=== PATIENT | male | born 1980 | race Caucasian/White ===

== ENCOUNTER 2016-07-09 02:33 | Emergency (ER) ==
[2016-07-09 02:48] VITALS: BP 120/83; TEMP 96.8
[2016-07-09] MEDS ORDERED: ZOFRAN 4 MG/2 ML IVP STA (02:56)
[2016-07-09] MEDS ORDERED: SODIUM CHLORIDE 1,000 ML IV STA (02:56)
[2016-07-09] MEDS ORDERED: DEMEROL 25 MG/ML SYRINGE IVP STA (02:56)
--- NOTE | 2016-07-09 02:59 | ED.PDOC ---
General ED Provider: Dr. YOSSI HOROWITZ Chief Complaint: Abdominal Pain Stated Complaint: been having diarrhea and abdominal cramps, on and off ever since he had GB surgery, 'worse today. Time Seen by Physician: 02:57 Mode of Arrival: Walk-In Information Source: Patient Primary Care Provider: ROSANNA JONES Nursing and Triage Documentation Reviewed and Agree: Yes GI Complaint Exam - Abdominal Pain Complaint/Exam Onset: Gradual Symptoms Are: Still present Timing: Constant Initial Severity: Moderate Current Severity: Moderate Location of Pain: Discrete Character: Reports: Aching, Throbbing Aggravating: Reports: Movement, Food Alleviating: Reports: None Associated Signs and Symptoms: Reports: Nausea, Vomiting, Diarrhea. Denies: Diaphoresis, Fever, Cough, Chest pain, Dizziness, Back pain, Constipation, Blood in stool, Dysuria, Urinary frequency, Decreased urine output, Decreased appetite, Discharge, Decreased activity Related History: Reports: Similar episode AAA Risk Factors: Reports: None Cardiac Risk Factors: Reports: None Testicular Torsion Risk Factors: Reports: None Surgical Obstruction Risk Factors: Reports: None Related Surgical History: Reports: Cholecystectomy Abdominal Findings: Absent: Pulsatile mass, Abdominal distention, Unequal femoral pulses Differential Diagnoses: Gastroenteritis, Pancreatitis Review of Systems - Review Of Systems Constitutional: Reports: Weakness Eyes: Reports: No symptoms Ears, Nose, Mouth, Throat: Reports: No symptoms Respiratory: Reports: No symptoms Cardiac: Reports: No symptoms GI: Reports: Abdominal pain, Diarrhea, Nausea, Vomiting : Reports: No symptoms Musculoskeletal: Reports: No symptoms Skin: Reports: No symptoms Neurological: Reports: No symptoms Endocrine: Reports: No symptoms Hematologic/Lymphatic: Reports: No symptoms All Other Systems: Reviewed and Negative Past Medical History - Past Medical History Previously Healthy: Yes Endocrine: Reports: DM 1 Cardiovascular: Reports: None Respiratory: Reports: None Hematological: Reports: None Gastrointestinal: Reports: None, Other (IRRITABLE BOWEL,) Genitourinary: Reports: None Neuro/Psych: Reports: None Musculoskeletal: Reports: Other Cancer: Reports: None Other Pertinent Past Medical History: IRRITABLE BOWEL, - Surgical History General Surgical History: Reports: Cholecystectomy, Tonsillectomy - Family History Family History: Reports: Unknown - Social History Smoking Status: Current every day smoker Hx Substance Use: No Alcohol Screening: Occasionally - Immunizations Tetanus Shot up to Date: Yes Physical Exam - Physical Exam Appearance: Ill-appearing, Thin Eyes: JERILYN, EOMI, Conjunctiva clear ENT: Ears normal, Nose normal, Oropharynx normal Respiratory: Airway patent, Breath sounds clear, Breath sounds equal, Respirations nonlabored Cardiovascular: RRR, Pulses normal, No rub, No murmur GI/: Soft, Tender, Bowel sounds hypoactive Musculoskeletal: Normal strength, ROM intact, No edema, No calf tenderness Skin: Warm, Dry, Normal color Neurological: Sensation intact, Motor intact, Reflexes intact, Cranial nerves intact, Alert, Oriented Psychiatric: Affect appropriate, Mood appropriate Interpretation - Radiology Interpretation Radiology Interpretation By: Radiologist Radiology Results: Negative Exam Interpreted: CT Scan Critical Care Note - Critical Care Note Total Time (mins): 0 Course - Course Hematology/Chemistry: 07/09/16 03:00 07/09/16 03:00 Orders, Labs, Meds: Lab Review 07/09/16 03:00 WBC 12.34 H RBC 4.28 L Hgb 12.9 L Hct 38.6 L MCV 90.2 MCH 30.1 MCHC 33.4 RDW Coeff of Chayo 12.8 Plt Count 236 Immature Gran % (Auto) 0.4 Neut % (Auto) 70.1 Lymph % (Auto) 18.1 Reeves % (Auto) 8.3 Eos % (Auto) 2.4 Baso % (Auto) 0.7 Immature Gran # (Auto) 0.1 Neut # 8.6 H Lymph # 2.2 Reeves # 1.0 Eos # 0.3 Baso # 0.1 Sodium 133 L Potassium 5.1 Chloride 101 Carbon Dioxide 24 Anion Gap 13.1 BUN 22 H Creatinine 1.15 H Estimated GFR (MDRD) 72.00 BUN/Creatinine Ratio 19.13 Glucose 483 H Calcium 9.4 Total Bilirubin 0.46 AST 67 H ALT 169 H Alkaline Phosphatase 164 H Total Protein 6.6 Albumin 3.7 Globulin 2.9 Albumin/Globulin Ratio 1.28 Amylase 60 Lipase 34 Orders Category Date Time Status ED IV/MEDIPORT/POWERPORT .ONCE EMERGENCY 07/09/16 02:56 Active AMYLASE Stat LAB 07/09/16 03:00 Completed CBC W/ AUTO DIFF Stat LAB 07/09/16 03:00 Completed COMPREHENSIVE METABOLIC PANEL Stat LAB 07/09/16 03:00 Completed LIPASE Stat LAB 07/09/16 03:00 Completed 0.9 % Sodium Chloride [Saline Flush] MEDS 07/09/16 02:56 Ordered 1 syr IVF PRN PRN Meperidine HCl/Pf [Demerol 25 mg/ml Syringe] MEDS 07/09/16 02:56 Discontinued 25 mg IVP ONCE STA Ondansetron HCl/Pf [Zofran 4 mg/2 ml] MEDS 07/09/16 02:56 Discontinued 4 mg IVP ONCE STA Sodium Chloride 0.9% [Sodium Chloride] 1,000 ml MEDS 07/09/16 02:56 Active IV 125 mls/hr CT ABDOMEN/PELVIS WO CONTRAST Stat RADS 07/09/16 02:54 Completed Medications Generic Name Dose Route Start Last Admin Trade Name Freq PRN Reason Stop Dose Admin Sodium Chloride 1,000 mls @ 125 mls/hr 07/09/16 02:56 07/09/16 03:29 Sodium Chloride IV 07/09/16 10:55 125 mls/hr .Q8H STA Administration Sodium Chloride 1 syr 07/09/16 02:56 Saline Flush IVF PRN PRN To flush IV Discontinued Medications Generic Name Dose Route Start Last Admin Trade Name Freq PRN Reason Stop Dose Admin Meperidine HCl 25 mg 07/09/16 02:56 07/09/16 03:29 Demerol 25 Mg/Ml Syringe IVP 07/09/16 02:57 25 mg ONCE STA Administration Ondansetron HCl 4 mg 07/09/16 02:56 07/09/16 03:29 Zofran 4 Mg/2 Ml IVP 07/09/16 02:57 4 mg ONCE STA Administration Vital Signs: Temp Pulse Resp BP Pulse Ox 07/09/16 02:41 96.8 F L 94 H 18 120/83 95 Departure - Departure Time of Disposition: 04:56 Disposition: HOME SELF-CARE Discharge Problem: Abdominal pain Instructions: Gastroenteritis (ED) Condition: Stable Pt referred to PMD for follow-up: No Additional Instructions: INCREASE HYDRATION SOFT DIET needs f/u with pmd Prescriptions: Ondansetron HCl [Zofran] 4 mg PO TID #14 tablet Allergies/Adverse Reactions: Allergies ciprofloxacin [From Cipro] Adverse Reaction (Verified 07/09/16 02:45) Abdominal Pain ciprofloxacin HCl [From Cipro] Adverse Reaction (Verified 07/09/16 02:45) Abdominal Pain Home Medications: Ambulatory Orders Insulin Glargine,Hum.rec.anlog [Lantus] 20 unit SQ BID 03/06/14 Insulin Lispro [Humalog] 1 unit SQ DIRECTED PRN 07/09/16 Ondansetron HCl [Zofran] 4 mg PO TID #14 tablet 07/09/16 Disposition Discussed With: Patient, Family
[2016-07-09 03:01] LABS: BASOPHILS # (AUTO) 0.1 K/uL (0-0.2); BASOPHILS % (AUTO) 0.7 % (0.0-3.0); EOSINOPHILS # (AUTO) 0.3 K/ul (0.0-0.7); EOSINOPHILS % (AUTO) 2.4 % (0.0-7.0); HEMATOCRIT 38.6 % (42.0-52.0); HEMOGLOBIN 12.9 g/dl (14.0-18.0); IMMATURE GRANULOCYTE % (AUTO) 0.4 % (0.0-5.0); LYMPHOCYTES # (AUTO) 2.2 K/uL (0.60-3.4); LYMPHOCYTES % (AUTO) 18.1 (10.0-50.0); MEAN CORPUSCULAR HEMOGLOBIN 30.1 pg (27.0-31.0); MEAN CORPUSCULAR HGB CONC 33.4 (31.8-35.4); MEAN CORPUSCULAR VOLUME 90.2 fl (80.0-94.0); MONOCYTES % (AUTO) 8.3 (0-10); NEUTROPHILS # (AUTO) 8.6 K/ul (2.0-6.9); NEUTROPHILS % (AUTO) 70.1; PLATELET COUNT 236 10^3/uL (140-440); RED BLOOD COUNT 4.28 10^6/ul (4.70-6.10); WHITE BLOOD COUNT 12.34 K/ul (4.2-10.2)
[2016-07-09 03:22] LABS: ALBUMIN 3.7 g/dL (3.4-5.0); ALBUMIN/GLOBULIN RATIO 1.28; ANION GAP 13.1; BILIRUBIN,TOTAL 0.46 mg/dL (0.00-1.20); BUN/CREATININE RATIO 19.13; CALCIUM 9.4 mg/dL (8.2-10.2); CREATININE 1.15 mg/dL (0.60-1.10); POTASSIUM 5.1 mmol/L (3.5-5.1); TOTAL PROTEIN 6.6 g/dL (6.4-8.2)
--- NOTE | 2016-07-09 03:26 | CT ---
Exam: CT of the abdomen and pelvis without contrast History: Abdominal pain Technique: [address] of the abdomen and pelvis without intravascular contrast FINDINGS: The lung bases are clear. No significant liver abnormality. The adrenals, pancreas and sp trice are unremarkable. The stomach and hiatus are unremarkable. Prior cholecystectomy. The appendix is normal. Atherosclerotic calcification of the aorta without aneurysm. There is a 1.3 cm cyst of the left kidney. The kidneys and collecting system are unremarkable otherwise. Bowel loops demonst rate normal caliber. No inflamatory change seen in the mesentery or retroperitoneum. Pelvic genitourinary structures appear normal. Pelvic bowel loops are unremarkable. No inflammatory change in the pelvic fat. No acute abnormality of the abdominal or pelvic skeleton. Pars interartic ularis defects of L5. Impression: 1. No inflammatory process, bowel or urinary obstruction is seen. No acute findings of the abdomen or pelvis.
== END 2016-07-09 05:05 | disposition home or self-care (01) ==
LOC: ED 02:33
DX: K52.9 Noninfective gastroenteritis and colitis, unspecified (principal); Z98.890 Other specified postprocedural states; Z90.49 Acquired absence of other specified parts of digestive tract; F17.210 Nicotine dependence, cigarettes, uncomplicated; E10.9 Type 1 diabetes mellitus without complications
CPT/HCPCS: 36415; 80053; 82150; 83690; 85025; 96375; 99283

== ENCOUNTER 2016-07-28 16:38 | Outpatient (CLI) ==
--- NOTE | 2016-07-28 17:04 | DI ---
EXAM: Three views of the right hand. History: Right hand pain and trauma. Findings: No acute fracture or dislocation. No abnormal calcifications or radiopaque foreign adrianne s. Joint spaces are preserved. Impression: No acute osseous abnormality.
== END 2016-07-28 16:39 | disposition home or self-care (01) ==
LOC: RAD 16:38
PROVIDERS: ATTEND Physician Assistant Medical
DX: M79.641 Pain in right hand (principal)

== ENCOUNTER 2016-09-01 10:49 | Outpatient (CLI) ==
[2016-09-01 11:54] LABS: ALBUMIN 3.5 g/dL (3.4-5.0); ALBUMIN/GLOBULIN RATIO 1.25; BILIRUBIN,TOTAL 0.83 mg/dL (0.00-1.20); CALCIUM 9.1 mg/dL (8.2-10.2); CHOL/HDL RATIO 3.2 (4.5-6.4); CREATININE 0.8 mg/dL (0.60-1.10); TOTAL PROTEIN 6.3 g/dL (6.4-8.2)
[2016-09-02 08:15] LABS: URINE CREATININE 174.4 mg/dL (Not Estab.)
[2016-09-03 07:41] LABS: URINE MALB/CR RATIO 30.4 mg/g creat (0.0-30.0)
== END 2016-09-01 10:50 | disposition home or self-care (01) ==
LOC: LAB 10:49
PROVIDERS: ATTEND Internal Medicine Endocrinology, Diabetes & Metabolism
DX: E10.9 Type 1 diabetes mellitus without complications (principal)
CPT/HCPCS: 36415; 80053; 80061; 82043; 83036; 84439; 84443

== ENCOUNTER 2016-11-18 21:21 | Emergency (ER) ==
[2016-11-18 21:36] VITALS: BP 123/88; TEMP 98.6; BMI 20.6
--- NOTE | 2016-11-18 22:02 | ED.PDOC ---
General ED Provider: Dr. DEL GAINES Chief Complaint: Bite Stated Complaint: Pateint states he was bitten by a brown spider on his left forearm 3 days ago. Since the it has been painful and swollen with some drainge. States that the pain is severe. Time Seen by Physician: 21:59 Mode of Arrival: Walk-In Information Source: Patient Exam Limitations: No limitations Primary Care Provider: ROSANNA JONES Nursing and Triage Documentation Reviewed and Agree: Yes Skin Complaint Exam - Skin/Soft Tissue Complaint/Exam Onset/Duration: 2 day Symptoms Are: Still present Timing: Constant Initial Severity: Moderate Current Severity: Moderate Location: Left mid forearm Character: Reports: Redness, Painful Aggravating: Reports: Touch Alleviating: Reports: None Associated Signs and Symptoms: Reports: Tenderness. Denies: Fever, Chills, Itching, Drainage, Bruising, Red streaks, Joint swelling Related History: Reports: Insect bite/sting Recent Exposure to Others w/Similar Symptoms: No Skin Findings: Present: Skin lesion (2 cm eschar noted on the mid left for arm with tenderness to palpation. ) Joint Tenderness Present: No Differential Diagnoses: Abscess, Cellulitis, Infection, MRSA Review of Systems - Review Of Systems Constitutional: Reports: No symptoms Eyes: Reports: No symptoms Ears, Nose, Mouth, Throat: Reports: No symptoms Respiratory: Reports: No symptoms Cardiac: Reports: No symptoms GI: Reports: No symptoms : Reports: No symptoms Musculoskeletal: Reports: Joint pain (Left finger injury ) Skin: Reports: Lesions, Rash Neurological: Reports: No symptoms Endocrine: Reports: No symptoms Hematologic/Lymphatic: Reports: No symptoms All Other Systems: Reviewed and Negative Past Medical History - Past Medical History Previously Healthy: Yes Endocrine: Reports: DM 1 Cardiovascular: Reports: None Respiratory: Reports: None Hematological: Reports: None Gastrointestinal: Reports: None, Other (IRRITABLE BOWEL,) Genitourinary: Reports: None Neuro/Psych: Reports: None Musculoskeletal: Reports: Other Cancer: Reports: None Other Pertinent Past Medical History: IRRITABLE BOWEL, - Surgical History General Surgical History: Reports: Cholecystectomy, Tonsillectomy - Family History Family History: Reports: Unknown - Social History Smoking Status: Current every day smoker, Heavy tobacco smoker Hx Substance Use: No Alcohol Screening: Occasionally - Immunizations Tetanus Shot up to Date: Yes Physical Exam - Physical Exam Appearance: Ill-appearing Ill-appearing: Mild Pain Distress: Moderate Neck: Supple Respiratory: Airway patent, Breath sounds clear, Breath sounds equal, Respirations nonlabored Cardiovascular: Pulses normal, No rub, No murmur, Tachycardia Musculoskeletal: Limited ROM (Left distal phalanx deformity ) Skin: Warm, Dry Neurological: Sensation intact Psychiatric: Anxious Interpretation - Radiology Interpretation Radiology Interpretation By: Radiologist Radiology Results: Positive Exam Interpreted: Other (Mallet fracture fifth digit ) Critical Care Note - Critical Care Note Total Time (mins): 0 Course - Course Orders, Labs, Meds: Orders Category Date Time Status Ketorolac Tromethamine [Toradol] MEDS 11/18/16 22:01 Discontinued 60 mg IM ONCE STA Sulfamethoxazole/Trimethoprim [Bactrim Ds 800/160 mg] MEDS 11/18/16 22:00 Discontinued 1 tab PO ONCE STA FINGER(S), LEFT MIN 2V Stat RADS 11/18/16 22:00 Completed Medications Discontinued Medications Generic Name Dose Route Start Last Admin Trade Name Freq PRN Reason Stop Dose Admin Ketorolac Tromethamine 60 mg 11/18/16 22:01 11/18/16 22:12 Toradol IM 11/18/16 22:02 60 mg ONCE STA Administration Trimethoprim/Sulfamethoxazole 1 tab 11/18/16 22:00 11/18/16 22:14 Bactrim Ds 800/160 Mg PO 11/18/16 22:01 1 tab ONCE STA Administration Vital Signs: Temp Pulse Resp BP Pulse Ox 11/18/16 21:22 98.6 F 110 H 18 123/88 97 Departure - Departure Time of Disposition: 22:47 Disposition: HOME SELF-CARE Discharge Problem: Spider bite wound, Finger fracture, left Instructions: Brown Recluse Spider Bite (ED), Jammed Finger (ED) Condition: Fair Pt referred to PMD for follow-up: Yes Additional Instructions: Follow up with your clinic in 2-3 days Return if worse or cannot keep medications down. Take medications as prescribed. Prescriptions: Hydrocodone/Acetaminophen [[place] 5-325 Tablet] 1 tab PO Q6HR PRN #12 tablet PRN Reason: PAIN Ibuprofen [Motrin] 600 mg PO Q6H PRN #30 tablet PRN Reason: Analgesia Sulfamethoxazole/Trimethoprim [Bactrim Ds Tablet] 1 each PO BID #20 tablet Allergies/Adverse Reactions: Allergies ciprofloxacin [From Cipro] Adverse Reaction (Verified 11/18/16 21:36) Abdominal Pain ciprofloxacin HCl [From Cipro] Adverse Reaction (Verified 11/18/16 21:36) Abdominal Pain BUMBLE BEES Adverse Reaction (Uncoded 11/18/16 21:37) Anaphylaxis Home Medications: Ambulatory Orders Insulin Glargine,Hum.rec.anlog [Lantus] 20 unit SQ BEDTIME 03/06/14 Insulin Lispro [Humalog] 2 unit SQ TID 07/09/16 Epinephrine [Epipen 2-Trev] 0.3 mg IM DIRECTED PRN 11/18/16 Hydrocodone/Acetaminophen [[place] 5-325 Tablet] 1 tab PO Q6HR PRN #12 tablet 11/27 Ibuprofen [Motrin] 600 mg PO Q6H PRN #30 tablet 11/18/16 Insulin Glargine,Hum.rec.anlog [Lantus] 28 unit SUBCUT DAILY 11/18/16 Sulfamethoxazole/Trimethoprim [Bactrim Ds Tablet] 1 each PO BID #20 tablet 11/18 Disposition Discussed With: Patient, Family
[2016-11-18] MEDS: TORADOL IM STA (22:12)
[2016-11-18] MEDS: BACTRIM DS 800/160 MG PO STA (22:14)
--- NOTE | 2016-11-18 22:44 | DI ---
EXAM: Left fifth finger HISTORY: Injury COMPARISON: None. FINDINGS: There is a Mallet fracture involving the base of the distal phalanx of the fifth digit. There is surrounding soft tissue swelling. IMPRESSION: Mallet fracture fifth digit
== END 2016-11-18 22:58 | disposition home or self-care (01) ==
LOC: ED 21:21
DX: S50.862A Insect bite (nonvenomous) of left forearm, initial encounter (principal); W57.XXXA Bitten or stung by nonvenomous insect and other nonvenomous arthropods, initial encounter; S62.637A Displaced fracture of distal phalanx of left little finger, initial encounter for closed fracture; F17.210 Nicotine dependence, cigarettes, uncomplicated
CPT/HCPCS: 96372; 99282

== ENCOUNTER 2016-11-23 22:05 | Emergency (ER) ==
[2016-11-23 22:05] VITALS: BMI 20.6
[2016-11-23] MEDS ORDERED: PROTONIX IV IVP STA (22:10)
[2016-11-23] MEDS ORDERED: ZOFRAN 4 MG/2 ML IVP STA (22:10)
[2016-11-23] MEDS ORDERED: SODIUM CHLORIDE 1,000 ML IV STA (22:10)
[2016-11-23] MEDS ORDERED: DILAUDID 1 MG/ML SYRINGE IVP STA ×2 (22:10→23:52)
[2016-11-23 22:19] LABS: BASOPHILS # (AUTO) 0.1 K/uL (0-0.2); BASOPHILS % (AUTO) 0.7 % (0.0-3.0); EOSINOPHILS # (AUTO) 0.2 K/ul (0.0-0.7); EOSINOPHILS % (AUTO) 1.5 % (0.0-7.0); HEMATOCRIT 37.6 % (42.0-52.0); IMMATURE GRANULOCYTE % (AUTO) 0.3 % (0.0-5.0); LYMPHOCYTES # (AUTO) 2.6 K/uL (0.60-3.4); LYMPHOCYTES % (AUTO) 23.7 (10.0-50.0); MEAN CORPUSCULAR HGB CONC 34.6 (31.8-35.4); MEAN CORPUSCULAR VOLUME 86.6 fl (80.0-94.0); NEUTROPHILS # (AUTO) 7.2 K/ul (2.0-6.9); NEUTROPHILS % (AUTO) 64.8; PLATELET COUNT 262 10^3/uL (140-440); RED BLOOD COUNT 4.34 10^6/ul (4.70-6.10); WHITE BLOOD COUNT 11.11 K/ul (4.2-10.2)
[2016-11-23 22:23] VITALS: BP 132/89; TEMP 99.2
[2016-11-23 22:40] LABS: BILIRUBIN,URINE Negative (NEGATIVE); KETONES,URINE 1+ (NEGATIVE); LEUKOCYTE ESTERASE ,URINE Negative (NEGATIVE); NITRITE,URINE Negative (NEGATIVE); PROTEIN,URINE Negative (NEGATIVE); URINE, BLOOD Trace-intact (NEGATIVE)
[2016-11-23 22:41] LABS: ADD URINE MICROSCOPIC YES
[2016-11-23 22:45] LABS: ALANINE AMINOTRANSFERASE 82 U/L (12-78); ALBUMIN 3.5 g/dL (3.4-5.0); ALKALINE PHOSPHATASE 223 U/L (50-136); AMYLASE 36 U/L (25-115); ANION GAP 16.6; ASPARTATE AMINO TRANSFERASE 115 U/L (15-37); BILIRUBIN,TOTAL 0.49 mg/dL (0.00-1.20); BLOOD UREA NITROGEN 20 mg/dL (7-18); BUN/CREATININE RATIO 13.88; CALCIUM 9.3 mg/dL (8.2-10.2); CARBON DIOXIDE 27 mmol/L (21-32); CHLORIDE 95 mmol/L (98-107); CREATINE KINASE 76 U/L; CREATININE 1.44 mg/dL (0.60-1.10); LIPASE 21 U/L (8-78); POTASSIUM 4.6 mmol/L (3.5-5.1); SODIUM 134 mmol/L (136-145)
[2016-11-23 22:46] LABS: SPERM,URINE TRACE (NOT PRESENT)
[2016-11-23 22:47] LABS: GLUCOSE 556 mg/dL (70-100)
[2016-11-23 22:54] LABS: ERYTHROCYTE SEDIMENTATION RATE 30 mm/hr (0-15); ESR INTERNAL QC INTERNAL QC VALID
--- NOTE | 2016-11-23 23:36 | CT ---
EXAM: CT angiogram chest with intravenous contrast 11/23/2016. Multi planar reformatted images obt ained. Three-dimensional reconstructed images provided HISTORY: Epigastric and chest/rib pain COMPARISON: None. FINDINGS: The heart size appears within normal limits. There is no pericardial effusion. The aort a shows no acute process. There are no pulmonary arterial filling defects to suggest pulmonary embolus. No acute osseous abnormality. There is no pulmonary consolidation, effusion or pneumothorax. Minimal dependent atelectasis. IMPRESSION: 1. Minimal dependent atelectasis. No acute superimposed cardiopulmonary process.
--- NOTE | 2016-11-23 23:37 | CT ---
EXAM: CT of the abdomen and pelvis with IV contrast. HISTORY: Upper abdominal pain. PROCEDURE: After the intravenous injection of contrast contiguous axial CT images of the abdomen an d pelvis were obtained with coronal and sagittal reformats. FINDINGS: There is a delay in image acquisition in relation to the IV contrast bolus which limits th e exam. The liver is normal in appearance. The gallbladder is surgically absent. The pancreas, spl een, adrenal glands and right kidney are normal in appearance. There is a cyst in the left kidney. The abdominal aorta is within normal limits in diameter. The appendix is incompletely visualized. T he visualized portion of the appendix is normal in appearance. No free fluid or free air in the abdo men or pelvis. The bladder is adequately filled with no abnormality identified. The bones and soft t issues are unremarkable. Impression: No acute findings in the abdomen or pelvis. Left renal cyst. Cholecystectomy.
[2016-11-23] MEDS ORDERED: HUMULIN R IVP STA (23:47)
--- NOTE | 2016-11-24 01:45 | ED.PDOC ---
General ED Provider: Dr. OZZIE ROLDAN-ER Chief Complaint: Abdominal Pain Stated Complaint: im hurting where my gb was Time Seen by Physician: 01:43 Mode of Arrival: Walk-In Information Source: Patient Exam Limitations: No limitations Primary Care Provider: ROSANNA JONES Nursing and Triage Documentation Reviewed and Agree: Yes GI Complaint Exam - Abdominal Pain Complaint/Exam Onset: Gradual Duration: several days Symptoms Are: Still present Timing: Constant Initial Severity: Mild Current Severity: Moderate Location of Pain: RUQ Character: Reports: Dull, Aching, Burning, Cramping Aggravating: Reports: Position Alleviating: Reports: None Associated Signs and Symptoms: Denies: Diaphoresis, Fever, Cough, Chest pain, Dizziness, Back pain, Constipation, Blood in stool, Dysuria, Urinary frequency, Decreased urine output, Decreased appetite, Discharge, Nausea, Vomiting, Diarrhea, Decreased activity Related Surgical History: Reports: Cholecystectomy Abdominal Findings: Present: None Differential Diagnoses: Constipation, Pancreatitis Quality Indicator For Non-Traumatic Chest Pain/Syncope: EKG Performed Review of Systems - Review Of Systems Constitutional: Reports: No symptoms Eyes: Reports: No symptoms Ears, Nose, Mouth, Throat: Reports: No symptoms Respiratory: Reports: No symptoms Cardiac: Reports: No symptoms, Other GI: Reports: No symptoms : Reports: No symptoms Musculoskeletal: Reports: No symptoms Skin: Reports: No symptoms Neurological: Reports: No symptoms Endocrine: Reports: No symptoms Hematologic/Lymphatic: Reports: No symptoms All Other Systems: Reviewed and Negative Past Medical History - Past Medical History Previously Healthy: Yes Endocrine: Reports: DM 1 Cardiovascular: Reports: None Respiratory: Reports: None Hematological: Reports: None Gastrointestinal: Reports: None, Other (IRRITABLE BOWEL,) Genitourinary: Reports: None Neuro/Psych: Reports: None Musculoskeletal: Reports: Other Cancer: Reports: None Other Pertinent Past Medical History: IRRITABLE BOWEL, - Surgical History General Surgical History: Reports: Cholecystectomy, Tonsillectomy - Family History Family History: Reports: Unknown - Social History Smoking Status: Current every day smoker, Heavy tobacco smoker Hx Substance Use: No Alcohol Screening: Occasionally Lives: With family - Immunizations Tetanus Shot up to Date: Yes Physical Exam - Physical Exam Appearance: Well-appearing, No pain distress, Well-nourished Pain Distress: Moderate Eyes: JERILYN, EOMI, Conjunctiva clear ENT: Ears normal, Nose normal, Oropharynx normal Neck: Supple Respiratory: Airway patent, Breath sounds clear, Breath sounds equal, Respirations nonlabored Cardiovascular: RRR, Pulses normal, No rub, No murmur GI/: Soft Musculoskeletal: Normal strength, ROM intact, No edema, No calf tenderness Skin: Warm, Dry, Normal color Neurological: Sensation intact, Motor intact, Reflexes intact, Cranial nerves intact, Alert, Oriented Psychiatric: Affect appropriate, Mood appropriate Interpretation - Radiology Interpretation Radiology Interpretation By: Radiologist Radiology Results: Negative Exam Interpreted: CT Scan - EKG Interpretation Time of EKG #1: 01:47 Rate: Normal Rhythm: Sinus Ectopy: None [place]: NL ST Segment: Normal Re-Evaluation - Re-Evaluation Time of Re-Evaluation: :47 Status: Improved (pain free) Vital Signs Stable: Yes Pain Level: 0 Appearance: NAD Lungs: Clear Skin: Warm and Dry Neuro: Alert and Oriented X3 CV: RRR Critical Care Note - Critical Care Note Total Time (mins): 0 Course - Course Hematology/Chemistry: 11/23/16 22:15 11/23/16 22:15 Orders, Labs, Meds: Lab Review 11/23/16 11/23/16 22:15 22:30 WBC 11.11 H RBC 4.34 L Hgb 13.0 L Hct 37.6 L MCV 86.6 MCH 30.0 MCHC 34.6 RDW Coeff of Chayo 12.2 Plt Count 262 Immature Gran % (Auto) 0.3 Neut % (Auto) 64.8 Lymph % (Auto) 23.7 Drew % (Auto) 9.0 Eos % (Auto) 1.5 Baso % (Auto) 0.7 Immature Gran # (Auto) 0.0 Neut # 7.2 H Lymph # 2.6 Drew # 1.0 Eos # 0.2 Baso # 0.1 ESR 30 H Sodium 134 L Potassium 4.6 Chloride 95 L Carbon Dioxide 27 Anion Gap 16.6 BUN 20 H Creatinine 1.44 H Estimated GFR (MDRD) 56.00 BUN/Creatinine Ratio 13.88 Glucose 556 H* Calcium 9.3 Total Bilirubin 0.49 AST 115 H ALT 82 H Alkaline Phosphatase 223 H Total Creatine Kinase 76 Troponin I < 0.0100 Total Protein 7.0 Albumin 3.5 Globulin 3.5 Albumin/Globulin Ratio 1.00 Amylase 36 Lipase 21 Urine Color Yellow Urine Clarity Clear Urine pH 6.0 Ur Specific [place] 1.010 Urine Protein Negative Urine Glucose (UA) 2+ Urine Ketones 1+ Urine Blood Trace-intact Urine Nitrite Negative Urine Bilirubin Negative Urine Urobilinogen 0.2 Ur Leukocyte Esterase Negative Urine Microscopic RBC 2-5 Ur Squamous Epith Cells Not present Urine Sperm Trace Orders Category Date Time Status EKG-(ED ONLY) Stat CARDIO 11/23/16 22:09 Completed BLOOD GLUCOSE MONITORING Q1HR CARE 11/23/16 23:47 Active NPO REMINDER: IMAGING ONCE CARE 11/23/16 22:11 Completed ACCUCHECK (ED) [ED ACCUCHECK ASSESSMENT] .ONCE EMERGENCY 11/24/16 00:54 Active ED IV/MEDIPORT/POWERPORT .ONCE EMERGENCY 11/23/16 22:10 Active AMYLASE Stat LAB 11/23/16 22:15 Completed CBC W/ AUTO DIFF Stat LAB 11/23/16 22:15 Completed COMPREHENSIVE METABOLIC PANEL Stat LAB 11/23/16 22:15 Completed CREATINE KINASE Stat LAB 11/23/16 22:15 Completed ESR Stat LAB 11/23/16 22:15 Completed HEPATITIS PANEL, ACUTE Stat LAB 11/23/16 00:01 Received LIPASE Stat LAB 11/23/16 22:15 Completed TROPONIN I Stat LAB 11/23/16 22:15 Completed URINALYSIS C & S IF INDICATED Stat LAB 11/23/16 22:30 Completed 0.9 % Sodium Chloride [Saline Flush] MEDS 11/23/16 22:10 Ordered 1 syr IVF PRN PRN Hydromorphone HCl [Dilaudid 1 mg/ml Syringe] MEDS 11/23/16 22:10 Discontinued 1 mg IVP ONCE STA Hydromorphone HCl [Dilaudid 1 mg/ml Syringe] MEDS 11/23/16 23:52 Discontinued 1 mg IVP ONCE STA Insulin Regular, Human [Humulin R] MEDS 11/23/16 23:47 Discontinued 15 unit IVP ONCE STA Ondansetron HCl/Pf [Zofran 4 mg/2 ml] MEDS 11/23/16 22:10 Discontinued 4 mg IVP ONCE STA Pantoprazole Sodium [Protonix IV] MEDS 11/23/16 22:10 Discontinued 40 mg IVP ONCE STA Sodium Chloride 0.9% [Sodium Chloride] 1,000 ml MEDS 11/23/16 22:10 Active IV 100 mls/hr CT ABDOMEN/PELVIS W CONTRAST Stat RADS 11/23/16 22:[address] CHEST PE PROTOCOL Stat RADS 11/23/16 22:11 Completed Medications Generic Name Dose Route Start Last Admin Trade Name Freshannan PRN Reason Stop Dose Admin Sodium Chloride 1,000 mls @ 100 mls/hr 11/23/16 22:10 11/23/16 22:37 Sodium Chloride IV 11/24/16 08:09 100 mls/hr .Q10H STA Administration Sodium Chloride 1 syr 11/23/16 22:10 11/23/16 22:48 Saline Flush IVF 1 syr PRN PRN Administration To flush IV Discontinued Medications Generic Name Dose Route Start Last Admin Trade Name Freq PRN Reason Stop Dose Admin Hydromorphone HCl 1 mg 11/23/16 22:10 11/23/16 22:40 Dilaudid 1 Mg/Ml Syringe IVP 11/23/16 22:11 1 mg ONCE STA Administration Hydromorphone HCl 1 mg 11/23/16 23:52 11/24/16 00:04 Dilaudid 1 Mg/Ml Syringe IVP 11/23/16 23:53 1 mg ONCE STA Administration Insulin Human Regular 15 unit 11/23/16 23:47 11/23/16 23:58 Humulin R IVP 11/23/16 23:48 15 unit ONCE STA Administration Ondansetron HCl 4 mg 11/23/16 22:10 11/23/16 22:39 Zofran 4 Mg/2 Ml IVP 11/23/16 22:11 4 mg ONCE STA Administration Pantoprazole Sodium 40 mg 11/23/16 22:10 11/23/16 22:47 Protonix Iv IVP 11/23/16 22:11 40 mg ONCE STA Administration Vital Signs: Temp Pulse Resp BP Pulse Ox 11/23/16 22:19 99.2 F 101 H 18 132/89 98 Departure - Departure Time of Disposition: 01:47 Disposition: HOME SELF-CARE Discharge Problem: Abdominal pain, Elevated liver enzymes Instructions: Acute Abdominal Pain (ED) Condition: Good Pt referred to PMD for follow-up: Yes Additional Instructions: stop motrin--librax q 6hrs prn pain #12--protonix 40mg #30--see your pcp tomorrow to follow up on liver enzymes and hepatitis testing--also consider gettin MRCP of the common bile duct to make sure no obstruction--also stop the bactrim Allergies/Adverse Reactions: Allergies ciprofloxacin [From Cipro] Adverse Reaction (Verified 11/18/16 21:36) Abdominal Pain ciprofloxacin HCl [From Cipro] Adverse Reaction (Verified 11/18/16 21:36) Abdominal Pain BUMBLE BEES Adverse Reaction (Uncoded 11/18/16 21:37) Anaphylaxis Home Medications: Ambulatory Orders Insulin Glargine,Hum.rec.anlog [Lantus] 20 unit SQ BEDTIME 03/06/14 Insulin Lispro [Humalog] 2 unit SQ TID 07/09/16 Epinephrine [Epipen 2-Trev] 0.3 mg IM DIRECTED PRN 11/18/16 Hydrocodone/Acetaminophen [[place] 5-325 Tablet] 1 tab PO Q6HR PRN #12 tablet 11/27 Ibuprofen [Motrin] 600 mg PO Q6H PRN #30 tablet 11/18/16 Insulin Glargine,Hum.rec.anlog [Lantus] 28 unit SUBCUT DAILY 11/18/16 Sulfamethoxazole/Trimethoprim [Bactrim Ds Tablet] 1 each PO BID #20 tablet 11/18 Disposition Discussed With: Patient, Family
== END 2016-11-24 03:06 | disposition home or self-care (01) ==
LOC: ED 22:05
DX: R10.11 Right upper quadrant pain (principal); R74.8 Abnormal levels of other serum enzymes; E10.9 Type 1 diabetes mellitus without complications; F17.210 Nicotine dependence, cigarettes, uncomplicated
CPT/HCPCS: 36415; 80053; 80074; 81001; 82150; 82550; 82962; 83690; 84484; 85025; 85651; 93005; 93010; 96361; 96374; 96375; 96376; 99283

== ENCOUNTER 2016-12-13 22:24 | Emergency (ER) ==
[2016-12-13 22:37] VITALS: BP 126/87; TEMP 97.7; BMI 21.1
[2016-12-13 22:57] LABS: BILIRUBIN,URINE Negative (NEGATIVE); KETONES,URINE Negative (NEGATIVE); LEUKOCYTE ESTERASE ,URINE Negative (NEGATIVE); NITRITE,URINE Negative (NEGATIVE); PROTEIN,URINE Negative (NEGATIVE); URINE, BLOOD Negative (NEGATIVE)
[2016-12-13 23:00] LABS: ADD URINE MICROSCOPIC NO
[2016-12-13 23:14] LABS: BASOPHILS # (AUTO) 0.1 K/uL (0-0.2); BASOPHILS % (AUTO) 0.8 % (0.0-3.0); EOSINOPHILS # (AUTO) 0.2 K/ul (0.0-0.7); HEMATOCRIT 37.8 % (42.0-52.0); HEMOGLOBIN 12.7 g/dl (14.0-18.0); IMMATURE GRANULOCYTE % (AUTO) 0.1 % (0.0-5.0); LYMPHOCYTES # (AUTO) 2.8 K/uL (0.60-3.4); LYMPHOCYTES % (AUTO) 31.7 (10.0-50.0); MEAN CORPUSCULAR HEMOGLOBIN 29.5 pg (27.0-31.0); MEAN CORPUSCULAR HGB CONC 33.6 (31.8-35.4); MEAN CORPUSCULAR VOLUME 87.9 fl (80.0-94.0); MONOCYTES # (AUTO) 0.7 K/uL (0.4-2.0); MONOCYTES % (AUTO) 7.3 (0-10); NEUTROPHILS # (AUTO) 5.2 K/ul (2.0-6.9); NEUTROPHILS % (AUTO) 58.1; PLATELET COUNT 189 10^3/uL (140-440); WHITE BLOOD COUNT 8.89 K/ul (4.2-10.2)
[2016-12-13] MEDS ORDERED: SODIUM CHLORIDE 1,000 ML IV STA (23:31)
[2016-12-13] MEDS ORDERED: TORADOL IVP STA (23:31)
[2016-12-13 23:36] LABS: ALBUMIN 3.5 g/dL (3.4-5.0); ALBUMIN/GLOBULIN RATIO 1.17; ANION GAP 14.4; BILIRUBIN,TOTAL 0.39 mg/dL (0.00-1.20); BUN/CREATININE RATIO 12.85; CALCIUM 9.6 mg/dL (8.2-10.2); CREATININE 1.4 mg/dL (0.60-1.10); POTASSIUM 4.4 mmol/L (3.5-5.1); TOTAL PROTEIN 6.5 g/dL (6.4-8.2)
--- NOTE | 2016-12-13 23:38 | ED.PDOC ---
General ED Provider: Dr. DEL GAINES Chief Complaint: Abdominal Pain Stated Complaint: Pateint is a 36 year old male who has a history of chronic abdominal pain. Had his gall bladder taken out 2 years ago. Now has had recurrent right upper quadrant abdominal pain worse in the past day. he was seen two week ago for the same. he has also had a hard time controlling his diabetes due to abdominal pain. Time Seen by Physician: 23:35 Mode of Arrival: Walk-In Information Source: Patient Exam Limitations: No limitations Primary Care Provider: ROSANNA JONES Nursing and Triage Documentation Reviewed and Agree: Yes Review of Systems - Review Of Systems Constitutional: Reports: No symptoms Eyes: Reports: No symptoms Ears, Nose, Mouth, Throat: Reports: No symptoms Respiratory: Reports: No symptoms Cardiac: Reports: No symptoms GI: Reports: Abdominal pain : Reports: No symptoms Musculoskeletal: Reports: No symptoms Skin: Reports: No symptoms Neurological: Reports: No symptoms Endocrine: Reports: No symptoms Hematologic/Lymphatic: Reports: No symptoms All Other Systems: Reviewed and Negative Past Medical History - Past Medical History Previously Healthy: Yes Endocrine: Reports: DM 1 Cardiovascular: Reports: None Respiratory: Reports: None Hematological: Reports: None Gastrointestinal: Reports: Other (IRRITABLE BOWEL,) Genitourinary: Reports: None Neuro/Psych: Reports: None Musculoskeletal: Reports: Other Cancer: Reports: None Other Pertinent Past Medical History: IRRITABLE BOWEL, - Surgical History General Surgical History: Reports: Cholecystectomy, Tonsillectomy - Family History Family History: Reports: Unknown - Social History Smoking Status: Current every day smoker, Heavy tobacco smoker Hx Substance Use: No Alcohol Screening: Occasionally - Immunizations Tetanus Shot up to Date: Yes Physical Exam - Physical Exam Appearance: Ill-appearing Ill-appearing: Moderate Pain Distress: Severe Neck: Supple Respiratory: Airway patent, Breath sounds clear, Breath sounds equal, Respirations nonlabored Cardiovascular: Tachycardia GI/: Tender (Right upper quadrant ) Skin: Warm, Dry, Normal color Neurological: Sensation intact, Motor intact, Reflexes intact, Cranial nerves intact, Alert, Oriented Psychiatric: Anxious Interpretation - Radiology Interpretation Radiology Interpretation By: Radiologist Radiology Results: Negative Exam Interpreted: CT Scan (Abdomen and Pelvis ) Critical Care Note - Critical Care Note Total Time (mins): 20 Course - Course Hematology/Chemistry: 12/13/16 23:12 12/13/16 23:12 Orders, Labs, Meds: Lab Review 12/13/16 12/13/16 22:35 23:12 WBC 8.89 RBC 4.30 L Hgb 12.7 L Hct 37.8 L MCV 87.9 MCH 29.5 MCHC 33.6 RDW Coeff of Chayo 13.0 Plt Count 189 Immature Gran % (Auto) 0.1 Neut % (Auto) 58.1 Lymph % (Auto) 31.7 [place] % (Auto) 7.3 Eos % (Auto) 2.0 Baso % (Auto) 0.8 Immature Gran # (Auto) 0.0 Neut # 5.2 Lymph # 2.8 [place] # 0.7 Eos # 0.2 Baso # 0.1 Sodium 138 Potassium 4.4 Chloride 98 Carbon Dioxide 30 Anion Gap 14.4 BUN 18 Creatinine 1.40 H Estimated GFR (MDRD) 57.00 BUN/Creatinine Ratio 12.85 Glucose 345 H Calcium 9.6 Total Bilirubin 0.39 AST 46 H ALT 77 Alkaline Phosphatase 139 H Total Protein 6.5 Albumin 3.5 Globulin 3.0 Albumin/Globulin Ratio 1.17 Amylase 60 Lipase 32 Urine Color Yellow Urine Clarity Clear Urine pH 7.0 Ur Specific [place] 1.015 Urine Protein Negative Urine Glucose (UA) 2+ Urine Ketones Negative Urine Blood Negative Urine Nitrite Negative Urine Bilirubin Negative Urine Urobilinogen 0.2 Ur Leukocyte Esterase Negative Orders Category Date Time Status ED IV/MEDIPORT/POWERPORT .ONCE EMERGENCY 12/13/16 23:31 Active AMYLASE Stat LAB 12/13/16 23:12 Completed CBC W/ AUTO DIFF Stat LAB 12/13/16 23:12 Completed COMPREHENSIVE METABOLIC PANEL Stat LAB 12/13/16 23:12 Completed LIPASE Stat LAB 12/13/16 23:12 Completed UA [URINALYSIS C & S IF INDICATED] Stat LAB 12/13/16 22:35 Completed 0.9 % Sodium Chloride [Saline Flush] MEDS 12/13/16 23:31 Discontinued 1 syr IVF PRN PRN Ketorolac Tromethamine [Toradol] MEDS 12/13/16 23:31 Discontinued 30 mg IVP ONCE STA Pantoprazole Sodium [Protonix IV] MEDS 12/13/16 23:53 Discontinued 40 mg IVP ONCE STA Sodium Chloride 0.9% [Sodium Chloride] 1,000 ml MEDS 12/13/16 23:[address] ABD/PEL WO RENAL STONE PROT Stat RADS 12/13/16 23:32 Completed Medications Discontinued Medications Generic Name Dose Route Start Last Admin Trade Name Freq PRN Reason Stop Dose Admin Sodium Chloride 1,000 mls @ 1,000 mls/hr 12/13/16 23:31 12/13/16 23:45 Sodium Chloride IV 12/14/16 00:30 1,000 mls/hr BOLUS STA Administration Ketorolac Tromethamine 30 mg 12/13/16 23:31 12/13/16 23:45 Toradol IVP 12/13/16 23:32 30 mg ONCE STA Administration Pantoprazole Sodium 40 mg 12/13/16 23:53 12/14/16 00:06 Protonix Iv IVP 12/13/16 23:54 40 mg ONCE STA Administration Sodium Chloride 1 syr 12/13/16 23:31 12/14/16 00:10 Saline Flush IVF 1 syr PRN PRN Administration To flush IV Vital Signs: Temp Pulse Resp BP Pulse Ox 12/13/16 22:28 97.7 F 104 H 20 126/87 97 Departure - Departure Time of Disposition: 01:00 Disposition: HOME SELF-CARE Discharge Problem: Abdominal pain Instructions: Abdominal Pain (ED) Condition: Fair Pt referred to PMD for follow-up: Yes Additional Instructions: Push fluids Follow up with PCP for GI referral Prescriptions: Dicyclomine HCl [Bentyl] 10 mg PO TID #30 capsule Tramadol HCl [Ultram] 50 mg PO Q6H PRN #25 tablet PRN Reason: Severe Pain Allergies/Adverse Reactions: Allergies ciprofloxacin [From Cipro] Adverse Reaction (Verified 12/13/16 22:37) Abdominal Pain ciprofloxacin HCl [From Cipro] Adverse Reaction (Verified 12/13/16 22:37) Abdominal Pain BUMBLE BEES Adverse Reaction (Uncoded 12/13/16 22:37) Anaphylaxis Home Medications: Ambulatory Orders Insulin Glargine,Hum.rec.anlog [Lantus] 20 unit SQ BEDTIME 03/06/14 Insulin Lispro [Humalog] 2 unit SQ TID 07/09/16 Epinephrine [Epipen 2-Trev] 0.3 mg IM DIRECTED PRN 11/18/16 Insulin Glargine,Hum.rec.anlog [Lantus] 28 unit SUBCUT DAILY 08/08/17 Dicyclomine HCl [Bentyl] 10 mg PO TID #30 capsule 12/13/16 Tramadol HCl [Ultram] 50 mg PO Q6H PRN #25 tablet 12/13/16 Disposition Discussed With: Patient, Family
[2016-12-13] MEDS ORDERED: PROTONIX IV IVP STA (23:53)
--- NOTE | 2016-12-14 00:50 | CT ---
Exam: CT of the abdomen and pelvis without contrast History: Right upper quadrant pain Technique: [address] of the abdomen and pelvis without intravascular contrast FINDINGS: The lung bases are clear. No significant liver abnormality. The adrenals, pancreas and sp trice are unremarkable. The stomach and hiatus are unremarkable.Prior cholecystectomy. Kidneys and pr oximal collecting system are unremarkable. The appendix is normal. Bowel loops demonstrate normal ca liber. No inflamatory change seen in the mesentery or retroperitoneum. Trace atherosclerotic calcifi cation of the aorta without aneurysm. Pelvic genitourinary structures appear normal. Pelvic bowel loops are unremarkable. No inflammatory change in the pelvic fat. No acute abnormality of the abdominal or pelvic skeleton. Pars interarticu isabel defects of L5. Impression: 1. No inflammatory process, bowel or urinary obstruction is seen. 2. Nonspecific gaseous colonic distension 3. Prior cholecystectomy.
== END 2016-12-14 01:11 | disposition home or self-care (01) ==
LOC: ED 22:24
DX: R10.11 Right upper quadrant pain (principal); G89.29 Other chronic pain; E10.9 Type 1 diabetes mellitus without complications; F17.210 Nicotine dependence, cigarettes, uncomplicated
CPT/HCPCS: 36415; 74176; 80053; 81001; 82150; 83690; 85025; 96361; 96374; 96375; 99283

== ENCOUNTER 2016-12-29 10:57 | Outpatient (CLI) | END 2016-12-29 10:58 | disposition home or self-care (01) | LOC: LAB 10:57 | PROVIDERS: ATTEND Physician Assistant Medical | DX: E10.9 Type 1 diabetes mellitus without complications (principal) | CPT/HCPCS: 36415; 83036 ==

== ENCOUNTER 2017-01-06 09:45 | Day surgery (SDC) ==
[2017-01-06 10:37] VITALS: TEMP 97.4
[2017-01-06] MEDS ORDERED: DIPRIVAN 20 ML VIAL IVP ONE (11:56)
[2017-01-06] MEDS ORDERED: LIDOCAINE HCL 2% LUER-JET ONE (11:56)
[2017-01-06] MEDS ORDERED: VERSED ONE (11:56)
[2017-01-06 13:27] VITALS: BP 108/72
--- NOTE | 2017-01-07 10:48 | OP ---
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 He has been having intermittent right upper quadrant discomfort. MEDICATIONS: SEE ANESTHESIA NOTES. PROCEDURE: ENDOSCOPY, GENIE BIOPSY. REPORT: The risks, benefits, alternatives and limitations were discussed in detail with the patient. Informed consent was obtained. After adequate sedation was achieved, the video endoscope was introduced in the posterior pharynx and esophagus under direct vision and I easily advanced down to the second portion of the duodenum. I then slowly withdrew. The duodenal mucosa appeared unremarkable as did the duodenal bulb. The antrum was relatively unremarkable as was the body. Two biopsies from the antral wall and from the body were obtained for H. Pylori test. There was a small amount of retained food in the gastric body. The scope was retroflexed to look at the cardia and fundus which was unremarkable. The scope was anteflexed and withdrawn back through the esophagus. In the distal esophagus there was two small erosions that were linear consisent with Grade B reflux esophagitis. The esophagus was otherwise unremarkable. The patient tolerated the procedure well with stable vital signs and pulse oximetry throughout. IMPRESSION: 1. LA GRADE B REFLUX ESOPHAGITIS. 2. RETAINED FOOD CONSISTENT WITH HIS DIABETES AND PROBABLE UNDERLYING DELAYED GASTRIC EMPYTING. RECOMMENDATIONS: 1. He has not started Prilosec as advised. I suggest he get [id number] Omeprazole 20 mg and take one tablet q.a.m. 2. We have him scheduled for an MRCP in two days to further evaluate the right upper quadrant pain and abnormal LFTs. I advised him to get this study. Although I suspect his LFTs are elevated due to fatty liver and not retained choledocholithiasis but I advise getting the study. 3. I also strongly advise that he continue to follow up with primary care physician and endocrinology. As discussed with the patient in the past, I suspect alot of his symptoms are related to his underlying diabetes which lead to intestinal dysmotility such as diabetic gastroparesis. The ideal treatment for his symptoms is ideal diabetes control. I stressed the importance of this to him once again. CC: YENY Poole
== END 2017-01-06 13:16 | disposition home or self-care (01) ==
LOC: SURG 09:45
PROVIDERS: ATTEND Internal Medicine Gastroenterology
DX: R10.11 Right upper quadrant pain (principal); K20.8 Other esophagitis; B96.81 Helicobacter pylori [H. pylori] as the cause of diseases classified elsewhere; E10.9 Type 1 diabetes mellitus without complications
CPT/HCPCS: 82962; 87339

== ENCOUNTER 2017-03-23 12:32 | Outpatient (CLI) ==
[2017-03-23 13:05] LABS: BILIRUBIN,URINE Negative (NEGATIVE); KETONES,URINE Negative (NEGATIVE); LEUKOCYTE ESTERASE ,URINE Negative (NEGATIVE); NITRITE,URINE Negative (NEGATIVE); PROTEIN,URINE Negative (NEGATIVE); URINE, BLOOD Trace-intact (NEGATIVE)
[2017-03-23 13:08] LABS: ADD URINE MICROSCOPIC YES
[2017-03-23 13:13] LABS: BACTERIA,URINE TRACE (NOT PRESENT)
[2017-03-23 13:14] LABS: SPERM,URINE TRACE (NOT PRESENT)
[2017-03-23 13:41] LABS: ALBUMIN 3.5 g/dL (3.4-5.0); ALBUMIN/GLOBULIN RATIO 1.13; ANION GAP 14.6; BILIRUBIN,TOTAL 0.47 mg/dL (0.00-1.20); BUN/CREATININE RATIO 18.68; CALCIUM 9.5 mg/dL (8.2-10.2); CREATININE 0.91 mg/dL (0.60-1.10); POTASSIUM 4.6 mmol/L (3.5-5.1); TOTAL PROTEIN 6.6 g/dL (6.4-8.2)
== END 2017-03-23 12:33 | disposition home or self-care (01) ==
LOC: LAB 12:32
PROVIDERS: ATTEND Internal Medicine Endocrinology, Diabetes & Metabolism
DX: E10.9 Type 1 diabetes mellitus without complications (principal)
CPT/HCPCS: 36415; 80053; 81001; 83036; 84439; 84443

== ENCOUNTER 2017-03-30 11:59 | Outpatient (CLI) | END 2017-03-30 12:00 | disposition home or self-care (01) | LOC: LAB 11:59 | PROVIDERS: ATTEND Internal Medicine Endocrinology, Diabetes & Metabolism | DX: R74.8 Abnormal levels of other serum enzymes (principal) | CPT/HCPCS: 36415; 80074 ==

== ENCOUNTER 2017-05-01 10:08 | Outpatient (CLI) | END 2017-05-01 10:09 | disposition home or self-care (01) | LOC: LAB 10:08 | PROVIDERS: ATTEND Nurse Practitioner Family | DX: R79.89 Other specified abnormal findings of blood chemistry (principal) | CPT/HCPCS: 36415; 80053; 85025 ==

== ENCOUNTER 2017-10-16 07:44 | Outpatient (CLI) | END 2017-10-16 07:45 | disposition home or self-care (01) | LOC: LAB 07:44 | PROVIDERS: ATTEND Internal Medicine Endocrinology, Diabetes & Metabolism | DX: E10.9 Type 1 diabetes mellitus without complications (principal) | CPT/HCPCS: 36415; 80053; 80061; 82043; 83036; 84439; 84443 ==

== ENCOUNTER 2017-12-22 06:18 | Emergency (ER) ==
[2017-12-22 06:28] VITALS: BP 134/86; TEMP 97.6; BMI 21.2
[2017-12-22] MEDS ORDERED: SODIUM CHLORIDE 1,000 ML IV STA (06:43)
[2017-12-22] MEDS ORDERED: PHENERGAN 25 MG/ML VIAL 25 MG in SODIUM CHLORIDE 50 ML IV STA (06:43)
--- NOTE | 2017-12-22 07:22 | ED.PDOC ---
General ED Provider: Dr. OZZIE ARRIAGA Chief Complaint: Nausea/Vomiting Stated Complaint: Dizziness and Vertigo; Feels like I am riding a Roller Coaster. Sudden onset earlier this AM with associated Nausea and Vomiting 6-8 times with associated Diarrhea. Some Sinus drainage and associated Headache. Has not been exposed to other illness in surroundings or family. Time Seen by Physician: 07:00 Mode of Arrival: Walk-In Information Source: Patient Exam Limitations: No limitations Primary Care Provider: ROSANNA JONES Nursing and Triage Documentation Reviewed and Agree: Yes (Nausea/vomiting 6-8 times. Diarrhea. Sinus drainage. Headache. Dizzy.) Does patient meet sepsis criteria?: No System Inflammatory Response Syndrome: Not Applicable Sepsis Protocol: For patient's 13 years and over: Temp is 96.8 and below OR 101 and greater Pulse >90 BPM Resp >20/minute Acutely Altered Mental Status Are patient's symptoms suggestive of a new infection, such as: -Pneumonia -Skin, Soft Tissue -Endocarditis -UTI -Bone, Joint Infection -Implantable Device -Acute Abdominal Infection -Wound Infection -Meningitis -Blood Stream Catheter Infection -Unknown Review of Systems - Review Of Systems Constitutional: Reports: Weakness Eyes: Reports: No symptoms Ears, Nose, Mouth, Throat: Reports: No symptoms Respiratory: Reports: No symptoms Cardiac: Reports: No symptoms GI: Reports: No symptoms : Reports: No symptoms Musculoskeletal: Reports: No symptoms Skin: Reports: No symptoms Neurological: Reports: No symptoms, Other (dizziness) Endocrine: Reports: No symptoms Hematologic/Lymphatic: Reports: No symptoms All Other Systems: Reviewed and Negative Past Medical History - Past Medical History Previously Healthy: Yes Endocrine: Reports: DM 1 Cardiovascular: Reports: None Respiratory: Reports: None Hematological: Reports: None Gastrointestinal: Reports: Other (IRRITABLE BOWEL,) Genitourinary: Reports: None Neuro/Psych: Reports: None, Other (Diabetic neuropathy) Musculoskeletal: Reports: Other Cancer: Reports: None Other Pertinent Past Medical History: IRRITABLE BOWEL, - Surgical History General Surgical History: Reports: Cholecystectomy, Tonsillectomy - Family History Family History: Reports: Unknown - Social History Smoking Status: Current every day smoker, Heavy tobacco smoker Hx Substance Use: No Alcohol Screening: Occasionally - Immunizations Tetanus Shot up to Date: Yes Physical Exam - Physical Exam Appearance: Ill-appearing, Well-nourished, Thin Ill-appearing: Moderate Pain Distress: None Eyes: JERILYN, EOMI, Conjunctiva clear ENT: Ears normal, Nose normal, Oropharynx normal Respiratory: Airway patent, Breath sounds clear, Breath sounds equal, Respirations nonlabored Cardiovascular: RRR, Pulses normal, No rub, No murmur GI/: Soft, Nontender, No masses, Bowel sounds normal, No Organomegaly Musculoskeletal: Normal strength, ROM intact, No edema, No calf tenderness Skin: Warm, Dry, Normal color Neurological: Sensation intact, Motor intact, Reflexes intact, Cranial nerves intact, Alert, Oriented Psychiatric: Affect appropriate, Mood appropriate Re-Evaluation - Re-Evaluation Time of Re-Evaluation: 09:50 (slight dizziness remains) Status: Improved Vital Signs Stable: Yes Appearance: NAD Lungs: Clear Skin: Warm and Dry Neuro: Alert and Oriented X3 CV: RRR Additional Comments: Given 1800 subhash ADA diet and tolerated well. Critical Care Note - Critical Care Note Total Time (mins): 60 Course - Course Hematology/Chemistry: 12/22/17 06:45 12/22/17 06:45 Orders, Labs, Meds: Lab Review 12/22/17 12/22/17 06:40 06:45 WBC 7.11 RBC 4.38 L Hgb 13.1 L Hct 39.1 L MCV 89.3 MCH 29.9 MCHC 33.5 RDW Coeff of Chayo 13.7 Plt Count 215 Immature Gran % (Auto) 0.3 Neut % (Auto) 54.9 Lymph % (Auto) 31.2 [place] % (Auto) 9.8 Eos % (Auto) 3.0 Baso % (Auto) 0.8 Immature Gran # (Auto) 0.0 Neut # (Auto) 3.9 Lymph # (Auto) 2.2 [place] # (Auto) 0.7 Eos # (Auto) 0.2 Baso # (Auto) 0.1 Influ A Molecular Assay Negative by naat Influ B Molecular Assay Negative by naat Orders Category Date Time Status ABG DRAW REQUEST Stat CARDIO 12/22/17 06:41 Ordered EKG-(ED ONLY) Stat CARDIO 12/22/17 06:41 Completed Belt Cleaner [ED ELECTRICAL SYSTEMS DESIGNER APPLIED] .ONCE EMERGENCY 12/22/17 06:41 Active ED IV/MEDIPORT/POWERPORT .ONCE EMERGENCY 12/22/17 06:43 Active ABG Stat LAB 12/22/17 06:40 Ordered AMYLASE Stat LAB 12/22/17 06:45 Received CBC W/ AUTO DIFF Stat LAB 12/22/17 06:45 Completed COMPREHENSIVE METABOLIC PANEL Stat LAB 12/22/17 06:45 Received CREATINE KINASE Stat LAB 12/22/17 06:45 Received FLU A/B MOLECULAR Stat LAB 12/22/17 06:40 Completed LIPASE Stat LAB 12/22/17 06:45 Received MOLECULAR GROUP A STREP Stat LAB 12/22/17 06:40 Completed TROPONIN I Stat LAB 12/22/17 06:45 Received URINALYSIS C & S IF INDICATED Stat LAB 12/22/17 06:41 Uncollected 0.9 % Sodium Chloride [Saline Flush] MEDS 12/22/17 06:43 Active 1 syr IVF PRN PRN Promethazine HCl [Phenergan 25 mg/ml Vial] 25 mg MEDS 12/22/17 06:43 Active 0.9 % Sodium Chloride [Sodium Chloride] 50 ml IV ONCE Sodium Chloride 0.9% [Sodium Chloride] 1,000 ml MEDS 12/22/17 06:[address] ABDOMEN/PELVIS WO CONTRAST Stat RADS 12/22/17 06:[address] HEAD W/O CONTRAST Stat RADS 12/22/17 06:42 Ordered Medications Generic Name Dose Route Start Last Admin Trade Name Freq PRN Reason Stop Dose Admin Promethazine HCl 25 mg/ Sodium 51 mls @ 75 mls/hr 12/22/17 06:43 Chloride IV 12/22/17 07:23 ONCE STA Sodium Chloride 1,000 mls @ 1,000 mls/hr 12/22/17 06:43 Sodium Chloride IV 12/22/17 07:42 BOLUS STA Sodium Chloride 1 syr 12/22/17 06:43 Saline Flush IVF PRN PRN To flush IV Vital Signs: Temp Pulse Resp BP Pulse Ox 12/22/17 06:22 97.6 F 96 H 20 134/86 97 Departure - Departure Time of Disposition: 11:30 Disposition: HOME SELF-CARE Discharge Problem: Gastroenteritis, Dizziness, Dehydration, Type 1 diabetes Instructions: Gastroenteritis (ED), Acute Nausea and Vomiting (ED) Condition: Good Pt referred to PMD for follow-up: Yes IPMP verified?: No Additional Instructions: Continue to force clear liquids today Advance diet Monitor BS readings Follow up PCP in 1 week or earlier if needed IF necessary for worsening condition return to ER Allergies/Adverse Reactions: Allergies ciprofloxacin [From Cipro] Adverse Reaction (Verified 12/22/17 06:28) Abdominal Pain ciprofloxacin HCl [From Cipro] Adverse Reaction (Verified 12/22/17 06:28) Abdominal Pain BUMBLE BEES Adverse Reaction (Uncoded 12/22/17 06:28) Anaphylaxis Home Medications: Ambulatory Orders Insulin Pump/Infus. Set/Meter [Accu-Chek Combo System] 1 unit SQ DIRECTED 02/28 Ondansetron [Zofran Odt] 4 mg PO Q8H #7 tab.rapdis 12/22/17 Pregabalin [Lyrica] 75 mg PO BID 12/22/17 Disposition Discussed With: Patient Neurological Complaint Exam - Dizziness Complaint/Exam Last Known Well: Yesterday Onset: Sudden Duration: 3-4 hours Symptoms Are: Still present Timing: Intermittent Episodes Lasting: Minutes (several) Initial Severity: Moderate Current Severity: Moderate Character: Reports: Room spinning, Lightheaded, Weak, Dizzy Aggravating: Reports: Position change, Change in head position Alleviating: Reports: Rest, Closing eyes Associated Signs and Symptoms: Reports: Nausea, Vomiting, Loss of balance. Denies: Diaphoresis, Tinnitus, Chest pain, Short of air, Palpitations, Unsteady gait, GI blood loss, Visual changes, Decreased oral intake, Change in medication , Change in diet, OTC meds Cardiac Risk Factors: Reports: Diabetes CVA Risk Factors: Reports: Diabetes JVD Present: No Carotid Bruit Present: No Glascow Coma Scale (see protocol): 15 Nystagmus Present: No Gag Reflex Present: Yes Meningeal Signs Positive: No Focal Weakness: Present: None Focal Sensory Loss: Present: None Gait: Normal Differential Diagnoses: Hypovolemia, Labyrinthitis, Medication reaction, Metabolic abnormalities Quality Indicator For Non-Traumatic Chest Pain/Syncope: EKG Performed Additional Information: Lab notified BS 49. Patient arrived back from CT/IV access with .9 NS started. Insulin pump stopped Assisted by department RN Tom Goff and Suni Castillo obtained- <30mg/dl 50 % Dexrose 25 gms (0.5 gm/ml) total 50 ml given IV push. 1030: BS 80' provided 1800 subhash ADA diet; Feeling better ED Physician Progress Note ED Physician Progress Note: []Lab notified BS 49. Patient arrived back from CT/IV access with .9 NS started. Insulin pump stopped Assisted by department RN Tom Goff and Suni Castillo obtained- <30mg/dl 50 % Dexrose 25 gms (0.5 gm/ml) total 50 ml given IV push. 1030: BS 80' provided 1800 subhash ADA diet; Feeling better 12/22/17 10:04 patient resting comfortably after eatting. Will daina ABG at 10 :15 AM Patient resting and feeling better 12/22/17 11:25 Pt had spontaneous BM/loose stool earlier / Denies further nausea or vomiting. BS was 281. WIll resume Insulin Pump Patient requesting discharge to home
[2017-12-22] MEDS ORDERED: GLUCOSE CHEW TAB PO STA (07:37)
[2017-12-22] MEDS ORDERED: DEXTROSE 50%-WATER ABBOJECT IVP STA (07:40)
[2017-12-22] MEDS ORDERED: PHENERGAN 25 MG/ML VIAL ONE (07:43)
[2017-12-22] MEDS ORDERED: DEXTROSE 50%-WATER ABBOJECT ONE (07:47)
--- NOTE | 2017-12-22 07:54 | CT ---
EXAM: CT BRAIN HISTORY: Vertigo TECHNIQUE: CT brain without intravenous contrast. 5-mm axial sections with Reformations. COMPARISON: 03/17/2007 FINDINGS: Brain is unremarkable without evidence of hemorrhage or large vessel distribution recent ischemic in farction. There is no suggestion of acute hydrocephalus or subdural fluid collection. No mass or ma ss effect. Cranium has no acute finding. Mastoid processes are aerated. The visualized paranasal sinuses are clear. IMPRESSION: No acute intracranial process.
--- NOTE | 2017-12-22 07:57 | CT ---
EXAM: CT abdomen pelvis without contrast HISTORY: Vomiting COMPARISON: CT abdomen pelvis 11/23/2016 and multiple priors TECHNIQUE: Serial axial images of the abdomen pelvis were performed from the lung bases through the inferior pelvis without contrast. These were viewed in multiple planes. FINDINGS: There is mild bibasilar atelectasis. Evaluation is limited due to lack of contrast. The liver is unremarkable. The gallbladder has been resected. The kidneys are normal. Spleen is normal. The adrenal glands are unremarkable. The panc reas is normal. The stomach is mildly distended. Soft tissues in the abdomen pelvis are unremarkable. Colon demonstrates scattered stool throughout t he colon. There is a round blind ending gas containing structure in the right pelvis likely represen ting the appendix. This has normal in appearance. There is no inflammatory stranding or changes. U rinary bladder is distended. Prostate is normal. There is no free air. The osseous structures demo nstrate pars defects at L5. IMPRESSION: 1. No acute intra-abdominal or pelvic process to account for patient's symptoms. Gas distended blin d ending small luminal structure in the right pelvis suggestive of normal appendix. 2. Prior cholecystectomy.
[2017-12-22] MEDS ORDERED: ANTIVERT PO STA (08:18)
== END 2017-12-22 11:47 | disposition home or self-care (01) ==
LOC: ED 06:18
DX: K52.9 Noninfective gastroenteritis and colitis, unspecified (principal); R42 Dizziness and giddiness; E86.0 Dehydration; E10.9 Type 1 diabetes mellitus without complications; R51 Headache; F17.210 Nicotine dependence, cigarettes, uncomplicated
CPT/HCPCS: 36415; 80053; 81001; 82150; 82550; 82553; 82803; 82962; 83690; 84484; 85025; 87502; 87651; 93005; 93010; 96361; 96365; 99283

== ENCOUNTER 2018-08-26 06:25 | Outpatient (CLI) | END 2018-08-26 06:26 | disposition home or self-care (01) | LOC: LAB 06:25 | PROVIDERS: ATTEND Internal Medicine Endocrinology, Diabetes & Metabolism | DX: E10.65 Type 1 diabetes mellitus with hyperglycemia (principal); E03.9 Hypothyroidism, unspecified | CPT/HCPCS: 36415; 80053; 80061; 83036; 84439; 84443 ==

== ENCOUNTER 2018-11-07 19:58 | Emergency (ER) ==
[2018-11-07 20:08] VITALS: BP 133/85; TEMP 98.4; BMI 20.5
[2018-11-07] MEDS ORDERED: MOTRIN PO STA (20:49)
--- NOTE | 2018-11-07 20:53 | ED.PDOC ---
General ED Provider: Dr. DEL GAINES Chief Complaint: Toe Pain/Injury Stated Complaint: Patient sustained a Crush injury to the right great toe when an Engine he was working on ran over it while tyring to move it. Happened yesterday. Has not taken any medications today. Time Seen by Physician: 20:50 Mode of Arrival: Walk-In Information Source: Patient Primary Care Provider: RUDDY PADILLA Nursing and Triage Documentation Reviewed and Agree: Yes Does patient meet sepsis criteria?: No System Inflammatory Response Syndrome: Not Applicable Sepsis Protocol: For patient's 13 years and over: Temp is 96.8 and below OR 101 and greater Pulse >90 BPM Resp >20/minute Acutely Altered Mental Status Are patient's symptoms suggestive of a new infection, such as: -Pneumonia -Skin, Soft Tissue -Endocarditis -UTI -Bone, Joint Infection -Implantable Device -Acute Abdominal Infection -Wound Infection -Meningitis -Blood Stream Catheter Infection -Unknown Musculoskeletal Complaint Exam - Ankle/Foot Complaint/Exam Location of Injury: Reports: Right, Toe #1 Mechanism of Injury: Reports: Trauma (crush injury ) Onset/Duration: yesterday Symptoms Are: Reports: Still present Onset of Pain: Reports: Immediate, Post accident Initial Severity: Severe Current Severity: Moderate Location: Reports: Diffuse (mostly on the great toe ) Character: Reports: Aching, Throbbing Alleviating: Reports: None Aggravating: Reports: Movement, Weight bearing, Prolonged standing Able to Bear Weight: Yes Associated Signs and Symptoms: Reports: Swelling, Bruising Gout Risk Factors: Reports: Male. Denies: >40 years old, Diabetes, HTN, Renal Disease, Hyperlipidemia, Alcohol abuse, Obesity, Psoriasis, PVD Related Surgical History: Reports: None Lower Extremity Findings: Present: Swelling, Tenderness, Limited range of motion Achilles Tendon Abnormality: No Tenderness: Present: Metatarsals, Digits Limited Range of Motion: Present: Dorsiflexion, Plantarflexion Ankle/Foot Picture: 1 - contusion, swelling and tendernes of the right great toe and adjacent tissues Differential Diagnosis: Closed Fracture, Sprain, Strain Review of Systems - Review Of Systems Constitutional: Reports: No symptoms Respiratory: Reports: No symptoms Cardiac: Reports: No symptoms GI: Reports: No symptoms Musculoskeletal: Reports: Joint pain Skin: Reports: Bruising Neurological: Reports: Anxiety All Other Systems: Reviewed and Negative Past Medical History - Past Medical History Previously Healthy: Yes Endocrine: Reports: DM 1 Cardiovascular: Reports: None Respiratory: Reports: None Hematological: Reports: None Gastrointestinal: Reports: Other (IRRITABLE BOWEL,) Genitourinary: Reports: None Neuro/Psych: Reports: Other (Diabetic neuropathy) Musculoskeletal: Reports: Other Cancer: Reports: None Other Pertinent Past Medical History: IRRITABLE BOWEL, - Surgical History General Surgical History: Reports: Cholecystectomy, Tonsillectomy - Family History Family History: Reports: Unknown - Social History Smoking Status: Current every day smoker, Heavy tobacco smoker Hx Substance Use: No Alcohol Screening: Occasionally - Immunizations Tetanus Shot up to Date: Yes Physical Exam - Physical Exam Appearance: Ill-appearing Pain Distress: Moderate Neck: Supple Respiratory: Airway patent, Breath sounds clear, Breath sounds equal, Respirations nonlabored Cardiovascular: RRR, Pulses normal, No rub, No murmur Musculoskeletal: Limited ROM (right great toe ) Skin: Warm, Dry (contusion on the right great toe.) Neurological: Alert, Oriented Psychiatric: Affect appropriate, Mood appropriate Interpretation - Radiology Interpretation Radiology Interpretation By: Radiologist Radiology Results: Positive Exam Interpreted: Other (non displaced proximal phalanx of the first digit. ) Critical Care Note - Critical Care Note Total Time (mins): 0 Course - Course Orders, Labs, Meds: Orders Category Date Time Status Foot splint [ED SPLINT APPLICATION] .ONCE EMERGENCY 11/07/18 21:49 Active Ibuprofen [Motrin] MEDS 11/07/18 20:49 Discontinued 800 mg PO ONCE STA FOOT, RIGHT 3 VIEWS Stat RADS 11/07/18 20:50 Completed Medications Discontinued Medications Generic Name Dose Route Start Last Admin Trade Name Freq PRN Reason Stop Dose Admin Ibuprofen 800 mg 11/07/18 20:49 11/07/18 21:02 Motrin PO 11/07/18 20:50 800 mg ONCE STA Administration Vital Signs: Temp Pulse Resp BP Pulse Ox 11/07/18 19:59 98.4 F 101 H 18 133/85 96 Departure - Departure Time of Disposition: 22:50 Disposition: HOME SELF-CARE Discharge Problem: Fracture of proximal phalanx of great toe Qualifiers: Encounter type: initial encounter Fracture type: closed Fracture alignment: nondisplaced Laterality: right Qualified Code(s): S92.414A - Nondisplaced fracture of proximal phalanx of right great toe, initial encounter for closed fracture Instructions: Toe Fracture (ED) Condition: Fair Pt referred to PMD for follow-up: Yes IPMP verified?: No Additional Instructions: FOLLOW UP WITH PCP IN 1-2 DAYS FOR REFERRAL TO ORTHO. TAKE MEDICATION PRESCRIBED. Prescriptions: Ibuprofen [Motrin] 600 mg PO Q6H PRN #30 tablet PRN Reason: Analgesia Allergies/Adverse Reactions: Allergies ciprofloxacin [From Cipro] Adverse Reaction (Verified 11/07/18 20:08) Abdominal Pain ciprofloxacin HCl [From Cipro] Adverse Reaction (Verified 11/07/18 20:08) Abdominal Pain BUMBLE BEES Adverse Reaction (Uncoded 11/07/18 20:08) Anaphylaxis ciprofloxacin Adverse Reaction (Uncoded 11/07/18 20:08) Abdominal Pain ciprofloxacin HCl Adverse Reaction (Uncoded 11/07/18 20:08) Abdominal Pain Home Medications: Ambulatory Orders Insulin Pump/Infus. Set/Meter [Accu-Chek Combo System] 1 unit SQ DIRECTED 02/28 Pregabalin [Lyrica] 75 mg PO TID 12/22/17 Ibuprofen [Motrin] 600 mg PO Q6H PRN #30 tablet 11/07/18 Disposition Discussed With: Patient
--- NOTE | 2018-11-07 21:19 | DI ---
EXAM: Three views of the right foot. History: Trauma of the right first digit. Findings / impression: Possible nondisplaced fracture of the proximal phalanx of the right first dig it. No dislocation.
== END 2018-11-07 22:05 | disposition home or self-care (01) ==
LOC: ED 19:58
DX: S92.414A Nondisplaced fracture of proximal phalanx of right great toe, initial encounter for closed fracture (principal); W22.8XXA Striking against or struck by other objects, initial encounter
CPT/HCPCS: 99282

== ENCOUNTER 2018-11-29 00:06 | Inpatient (IN) ==
[2018-11-29] MEDS ORDERED: VANCOMYCIN 1 GM in SODIUM CHLORIDE 250 ML IV STA (00:35)
[2018-11-29] MEDS ORDERED: SODIUM CHLORIDE 1,000 ML IV STA (00:35)
--- NOTE | 2018-11-29 01:13 | CT ---
Exam: CT of the left foot without contrast History: Diabetic ulcer Technique: [address] of the left foot with multiplanar reformations FINDINGS: Circumferential wall soft tissue edema most prominent on the dorsum of the foot. No soft tissue gas is seen. No organizing collection is seen. No suspicious bony lesions are seen. No acut e bony or articular abnormalities. Impression: 1. Confluent soft tissue edema in the foot. No bony or articular abnormalities are seen.
--- NOTE | 2018-11-29 01:16 | CT ---
Exam: CT of the right foot without contrast History: Swelling and pain Technique: [address] of the right foot with multiplanar reformations FINDINGS: Confluent edema of the foot most prominent on the dorsum. No soft tissue gas or organizin g fluid collection is seen. Intra-articular comminuted fracture at the head of the proximal phalanx of the first digit. No additional acute bony or articular abnormalities. Impression: 1. Circumferential swelling of the foot without organizing fluid collection. 2. Fracture of the head of the proximal phalanx of the first digit also seen on 11/07/2018 radiograp h. No acute bony abnormalities otherwise.
[2018-11-29] MEDS ORDERED: MORPHINE 2 MG/ML SYRINGE IVP STA (01:24)
--- NOTE | 2018-11-29 01:38 | ED.PDOC ---
General ED Provider: Dr. OZZIE RLODAN-ER Chief Complaint: Foot Pain/Injury Stated Complaint: suellen got ulcers on both feet Time Seen by Physician: 00:10 Mode of Arrival: Walk-In Information Source: Patient, Family Exam Limitations: No limitations Primary Care Provider: RUDDY PADILLA Nursing and Triage Documentation Reviewed and Agree: Yes Does patient meet sepsis criteria?: No System Inflammatory Response Syndrome: Not Applicable Sepsis Protocol: For patient's 13 years and over: Temp is 96.8 and below OR 101 and greater Pulse >90 BPM Resp >20/minute Acutely Altered Mental Status Are patient's symptoms suggestive of a new infection, such as: -Pneumonia -Skin, Soft Tissue -Endocarditis -UTI -Bone, Joint Infection -Implantable Device -Acute Abdominal Infection -Wound Infection -Meningitis -Blood Stream Catheter Infection -Unknown Skin Complaint Exam - Skin/Soft Tissue Complaint/Exam Onset/Duration: 2 days ??? Symptoms Are: Still present Timing: Constant Initial Severity: Mild Current Severity: Moderate Location: bottoms both feet Character: Reports: Redness, Swelling, Raised, Painful Aggravating: Reports: Touch Associated Signs and Symptoms: Reports: Drainage, Tenderness, Red streaks. Denies: Fever, Chills, Itching, Bruising, Joint swelling Skin Findings: Present: Erythema, Wet ulceration Joint Tenderness Present: No Differential Diagnoses: Cellulitis, Other Review of Systems - Review Of Systems Constitutional: Reports: No symptoms Eyes: Reports: No symptoms Ears, Nose, Mouth, Throat: Reports: No symptoms Respiratory: Reports: No symptoms Cardiac: Reports: No symptoms GI: Reports: No symptoms : Reports: No symptoms Musculoskeletal: Reports: No symptoms Skin: Reports: Other Neurological: Reports: No symptoms Endocrine: Reports: No symptoms Hematologic/Lymphatic: Reports: No symptoms All Other Systems: Reviewed and Negative Past Medical History - Past Medical History Previously Healthy: Yes Endocrine: Reports: DM 1 Cardiovascular: Reports: None Respiratory: Reports: None Hematological: Reports: None Gastrointestinal: Reports: Other (IRRITABLE BOWEL,) Genitourinary: Reports: None Neuro/Psych: Reports: Other (Diabetic neuropathy) Musculoskeletal: Reports: Other Cancer: Reports: None Other Pertinent Past Medical History: IRRITABLE BOWEL, - Surgical History General Surgical History: Reports: Cholecystectomy, Tonsillectomy - Family History Family History: Reports: Unknown - Social History Smoking Status: Current every day smoker, Heavy tobacco smoker Hx Substance Use: No Alcohol Screening: None - Immunizations Tetanus Shot up to Date: Yes (Had 2-3 yrs ago) Physical Exam - Physical Exam Appearance: Well-appearing, No pain distress, Well-nourished Pain Distress: Mild Eyes: JERILYN, EOMI, Conjunctiva clear ENT: Ears normal, Nose normal, Oropharynx normal Neck: Supple Respiratory: Airway patent, Breath sounds clear, Breath sounds equal, Respirations nonlabored Cardiovascular: RRR, Pulses normal, No rub, No murmur GI/: Soft, Nontender, No masses, Bowel sounds normal, No Organomegaly Musculoskeletal: Normal strength, ROM intact, No edema, No calf tenderness Skin: Warm, Dry, Normal color Neurological: Sensation intact, Motor intact, Reflexes intact, Cranial nerves intact, Alert, Oriented Psychiatric: Affect appropriate, Mood appropriate Interpretation - Radiology Interpretation Radiology Interpretation By: Radiologist Radiology Results: Negative Exam Interpreted: CT Scan Physician Notification - Case Discussed Physician Notified: dr [email or web address] Time of Notification: 01:37 Critical Care Note - Critical Care Note Total Time (mins): 0 Course - Course Hematology/Chemistry: 11/29/18 01:00 11/29/18 01:00 Orders, Labs, Meds: Lab Review 11/29/18 11/29/18 11/29/18 01:00 01:00 01:00 WBC 9.33 RBC 4.01 L Hgb 12.0 L Hct 35.6 L MCV 88.8 MCH 29.9 MCHC 33.7 RDW Coeff of Chayo 12.9 Plt Count 296 Immature Gran % (Auto) 0.2 Neut % (Auto) 66.4 Lymph % (Auto) 21.1 Tift % (Auto) 9.4 Eos % (Auto) 2.3 Baso % (Auto) 0.6 Immature Gran # (Auto) 0.0 Neut # (Auto) 6.2 Lymph # (Auto) 2.0 Tift # (Auto) 0.9 Eos # (Auto) 0.2 Baso # (Auto) 0.1 Sodium 134.1 L Potassium 4.11 Chloride 96.4 L Carbon Dioxide 31.9 H Anion Gap 9.91 BUN 14.6 Creatinine 0.83 Estimated GFR (MDRD) 104.00 BUN/Creatinine Ratio 17.59 Glucose 392.6 H Hemoglobin A1c Calcium 9.06 Total Bilirubin 0.37 AST 27.9 ALT 24.1 Alkaline Phosphatase 150.6 H Total Protein 6.79 Albumin 3.80 Globulin 2.99 Albumin/Globulin Ratio 1.27 Urine Color Urine Clarity Urine pH Ur Specific [place] Urine Protein Urine Glucose (UA) Urine Ketones Urine Blood Urine Nitrite Urine Bilirubin Urine Urobilinogen Ur Leukocyte Esterase Urine Microscopic RBC Ur Squamous Epith Cells Vancomycin Trough < 5.000 L 11/29/18 11/29/18 01:00 01:05 WBC RBC Hgb Hct MCV MCH MCHC RDW Coeff of Chayo Plt Count Immature Gran % (Auto) Neut % (Auto) Lymph % (Auto) Tift % (Auto) Eos % (Auto) Baso % (Auto) Immature Gran # (Auto) Neut # (Auto) Lymph # (Auto) Tift # (Auto) Eos # (Auto) Baso # (Auto) Sodium Potassium Chloride Carbon Dioxide Anion Gap BUN Creatinine Estimated GFR (MDRD) BUN/Creatinine Ratio Glucose Hemoglobin A1c 10.67 H Calcium Total Bilirubin AST ALT Alkaline Phosphatase Total Protein Albumin Globulin Albumin/Globulin Ratio Urine Color Yellow Urine Clarity Clear Urine pH 7.5 Ur Specific [place] 1.015 Urine Protein Negative Urine Glucose (UA) 2+ Urine Ketones Negative Urine Blood Trace-intact Urine Nitrite Negative Urine Bilirubin Negative Urine Urobilinogen 0.2 Ur Leukocyte Esterase Negative Urine Microscopic RBC 0-2 Ur Squamous Epith Cells Not present Vancomycin Trough Orders Category Date Time Status ED IV/MEDIPORT/POWERPORT .ONCE EMERGENCY 11/29/18 00:32 Active BLOOD CULTURE (ED ONLY) Stat LAB 11/29/18 01:00 Received CBC W/ AUTO DIFF Stat LAB 11/29/18 01:00 Completed COMPREHENSIVE METABOLIC PANEL Stat LAB 11/29/18 01:00 Completed HEMOGLOBIN A1C Stat LAB 11/29/18 01:00 Completed URINALYSIS C & S IF INDICATED Stat LAB 11/29/18 01:05 Completed VANCOMYCIN,TROUGH Routine LAB 11/29/18 01:00 Completed WOUND CULTURE Stat LAB 11/29/18 00:50 Received 0.9 % Sodium Chloride [Saline Flush] MEDS 11/29/18 00:32 Active 1 syr IVF PRN PRN Morphine Sulfate [Morphine 2 mg/ml Syringe] MEDS 11/29/18 01:24 Discontinued 2 mg IVP ONCE STA Sodium Chloride 0.9% [Sodium Chloride] 1,000 ml MEDS 11/29/18 00:35 Active IV 100 mls/hr Vancomycin HCl [Vancomycin] 1 gm MEDS 11/29/18 00:35 Discontinued 0.9 % Sodium Chloride [Sodium Chloride] [address] FOOT LEFT WITHOUT CONTRAST Stat RADS 11/29/18 00:[address] FOOT RIGHT WITHOUT CONTRAST Stat RADS 11/29/18 00:33 Completed Medications Generic Name Dose Route Start Last Admin Trade Name Freq PRN Reason Stop Dose Admin Sodium Chloride 1,000 mls @ 100 mls/hr 11/29/18 00:35 11/29/18 01:01 Sodium Chloride IV 11/29/18 10:34 100 mls/hr .Q10H STA Administration Sodium Chloride 1 syr 11/29/18 00:32 11/29/18 01:29 Saline Flush IVF 1 syr PRN PRN Administration To flush IV Discontinued Medications Generic Name Dose Route Start Last Admin Trade Name Freq PRN Reason Stop Dose Admin Vancomycin HCl 1 gm/ Sodium 250 mls @ 250 mls/hr 11/29/18 00:35 11/29/18 01: 00 Chloride IV 11/29/18 01:34 250 mls/hr ONCE STA Administration Morphine Sulfate 2 mg 11/29/18 01:24 11/29/18 01:28 Morphine 2 Mg/Ml Syringe IVP 11/29/18 01:25 2 mg ONCE STA Administration Vital Signs: Temp Pulse Resp BP Pulse Ox 11/29/18 00:08 98.2 F 106 H 20 119/78 95 Departure - Departure Time of Disposition: 01:38 Disposition: ADMITTED INPATIENT Discharge Problem: Foot ulcer due to secondary DM Discharge Problem: (Ruled Out): Diabetic ulcer of foot associated with diabetes mellitus due to underlying condition, limited to breakdown of skin Instructions: Foot Care for People with Diabetes (ED) Condition: Fair Pt referred to PMD for follow-up: Yes IPMP verified?: No Allergies/Adverse Reactions: Allergies ciprofloxacin [From Cipro] Adverse Reaction (Verified 11/29/18 00:17) Abdominal Pain ciprofloxacin HCl [From Cipro] Adverse Reaction (Verified 11/29/18 00:17) Abdominal Pain BUMBLE BEES Adverse Reaction (Uncoded 11/29/18 00:17) Anaphylaxis ciprofloxacin Adverse Reaction (Uncoded 11/29/18 00:17) Abdominal Pain ciprofloxacin HCl Adverse Reaction (Uncoded 11/29/18 00:17) Abdominal Pain Home Medications: Ambulatory Orders Insulin Pump/Infus. Set/Meter [Accu-Chek Combo System] 1 unit SQ DIRECTED 02/28 Pregabalin [Lyrica] 150 mg PO TID 12/22/17 Ibuprofen [Motrin] 600 mg PO Q6H PRN #30 tablet 11/07/18 Disposition Discussed With: Patient, Family
[2018-11-29] MEDS ORDERED: [UNRECOGNIZED DRUG - MIXTURE] SQ SCH (01:45)
[2018-11-29] MEDS ORDERED: HUMULIN R SUBCUT PRN (01:47)
[2018-11-29] MEDS ORDERED: ROCEPHIN 1 GM VIAL ONE (02:27)
[2018-11-29 02:35] VITALS: BMI 21.1
[2018-11-29] MEDS ORDERED: ROCEPHIN 1 GM VIAL 1 GM in SODIUM CHLORIDE 50 ML IV SCH (03:00)
[2018-11-29] MEDS: MORPHINE 2 MG/ML SYRINGE IVP PRN ×2 (05:41→11:10)
[2018-11-29] MEDS: VANCOMYCIN 1 GM in SODIUM CHLORIDE 250 ML IV SCH ×2 (08:38→20:06)
[2018-11-29] MEDS: LYRICA PO SCH ×3 (08:55→20:06)
[2018-11-29] MEDS ORDERED: LYRICA PO SCH (09:00)
[2018-11-29] MEDS: LOVENOX SUBCUT SCH (10:22)
[2018-11-29] MEDS ORDERED: TYLENOL PO PRN (13:57)
[2018-11-29] MEDS: NICODERM 21 MG TD SCH (14:50)
[2018-11-29] MEDS: SODIUM CHLORIDE 1,000 ML IV SCH ×2 (14:51→15:21)
--- NOTE | 2018-11-29 15:04 | US ---
EXAM: Ultrasound venous Doppler right and left lower extermity HISTORY: Edema and pain in legs and feet COMPARISON: None TECHNIQUE: Venous duplex ultrasound of the right and left lower extremity was performed using color, oquendo-scale, and Doppler flow imaging. FINDINGS: There is normal color flow and compression of the right and left common femoral, greater s aphenous, profunda femoral, femoral, popliteal, peroneal, posterior tibial, and anterior tibial veins without evidence of intraluminal thrombus. No reflux is identified. IMPRESSION: No right or left lower extremity deep venous thrombosis.
[2018-11-29] MEDS ORDERED: ROCEPHIN 1 GM/50 ML D5W 1 GM in PREMIX 50 ML D5W 1 BAG IV SCH (21:00)
[2018-11-29] MEDS: ROCEPHIN 2 GM/50 ML D5W 2 GM in PREMIX 50 ML D5W 1 BAG IV SCH (21:09)
[2018-11-30] MEDS: SODIUM CHLORIDE 1,000 ML IV SCH (05:15)
[2018-11-30] MEDS: LOVENOX SUBCUT SCH (08:31)
[2018-11-30] MEDS: NICODERM 21 MG TD SCH (08:31)
[2018-11-30] MEDS: LYRICA PO SCH ×3 (08:36→20:54)
[2018-11-30] MEDS: VANCOMYCIN 1 GM in SODIUM CHLORIDE 250 ML IV SCH (08:53)
[2018-11-30] MEDS ORDERED: VANCOMYCIN 500 MG in SODIUM CHLORIDE 100 ML IV ONE (09:30)
[2018-11-30] MEDS: ROCEPHIN 2 GM/50 ML D5W 2 GM in PREMIX 50 ML D5W 1 BAG IV SCH (20:55)
[2018-11-30] MEDS: VANCOMYCIN 1.5 GM in SODIUM CHLORIDE 500 ML IV SCH (21:57)
[2018-12-01] MEDS: SODIUM CHLORIDE 1,000 ML IV SCH ×3 (01:07→23:12)
[2018-12-01] MEDS: NICODERM 21 MG TD SCH (09:03)
[2018-12-01] MEDS: LOVENOX SUBCUT SCH (09:03)
[2018-12-01] MEDS: LYRICA PO SCH ×3 (09:04→20:27)
[2018-12-01] MEDS: VANCOMYCIN 1.5 GM in SODIUM CHLORIDE 500 ML IV SCH ×2 (09:09→20:27)
--- NOTE | 2018-12-01 14:54 | HP ---
DATE OF SERVICE: 11/29/18 CHIEF COMPLAINT: Foot pain and ulcers on bilateral feet. HISTORY OF PRESENT ILLNESS: Mr. Esquivel is a pleasant 38 year old patient of Andra Bach who presented to the emergency department with complaints of bilateral feet ulcers. He reports that he has lower extremity swelling for the last couple weeks and noticed that he had some blisters starting his feet on Thursday. He reports that the swelling has been there for approximately 6 weeks. The blisters did open up and start draining. He reports that he has had ulcer in the past to his lower extremities. He describes them as very painful and a burning type pain. He is uncontrolled diabetic. His A1c on admission was 10.67%. His fasting glucose was 392.6. WBC on admission was 9.33%. He was admitted for diabetic foot ulcers due to uncontrolled diabetes mellitus type 2. PAST PERSONAL HISTORY: Retinopathy Irritable bowel syndrome Gastroparesis Diabetes mellitus type 2 T&A Colonoscopy Gallbladder surgery FAMILY HISTORY: Cardiac disorders Diabetes Mellitus Thyroid disease SOCIAL HISTORY: Positive for alcohol use, positive for tobacco use and denies any illicit drugs. MEDICATIONS: Lyrica 75mg three times a day Insulin pump ALLERGIES: Ciprofloxacin Bumble bees REVIEW OF SYSTEMS: CONSTITUTIONAL: Denies any fever, chills, nigh sweats for weight changes. HEENT: Denies any headache, nasal drainage or sore throat CARDIOVASCULAR: Denies any chest pain, irregular rhythm, orthopnea. Does complain of lower extremity swelling on going for the past 6 weeks LUNGS: No complaints of shortness of breath, cough or congestion. He does use tobacco GI: No complaints of abdominal pain, nausea or vomiting, diarrhea or constipation, blood in the stool or changes in the stool consistency. Does have a history of irritable bowel syndrome. He does have a history of gastroparesis. : No reports of dysuria, hematuria, nocturia or urinary incontinence. MUSCULOSKELETAL: No reports of any unusual muscle pain, joint redness or swelling. NEUROLOGICAL: Denies any dizziness, fatigue or neurological deficit. PSYCHOLOGICAL: No complaints of anxiety, depression or mood changed ENDOCRINE: He does have a history of diabetes mellitus type 2 that is not controlled. Denies any thyroid disease. No reports of increased thirst, urination, heat or cold intolerance. INTEGUMENTARY: He does have bilateral lower extremity foot ulcers that have opened up and are draining. PHYSICAL EXAMINATION: GENERAL: He is alert and oriented and in no acute distress. VITAL SIGNS: Temperature 98.2, pulse 106, blood pressure 119/78, respiratory rate 20, O2 saturation 95% on room air. Height 6'0, weight 152 pounds and 8 ounces. HEAD: Normal cephalic. Atraumatic. EYES: Pupils equal/reactive to light. Conjunctivae not pale. Sclerae not icteric. Mucus membranes moist. THROAT: No inflammation, tumors or exudate. NECK: No masses. No bruit. No tenderness. No rigidity. Supple. No lymphadenopathy or thyromegaly. CHEST: S1, S2. Regular rate and rhythm. He does have lower extremity swelling bilaterally approximately 2+ from the knees down to the feet. LUNGS: Diminished bilaterally but clear. HEART: Audible and regular with good tones. No murmurs. ABDOMEN: Soft. Bowel sounds are positive all four quadrants. No tenderness on examination. NEUROLOGICAL: Cranial nerves II through XII are grossly intact without any advert neurological deficits SKIN: Warm and dry. He does have bilateral lower foot ulcerations noted to the bottom of each foot on the left foot it is a 4x4cm ulceration that is open and draining, on the right it is 3.5x3.5 ulceration and both are noted to just below the toes bilaterally. Wound cultures have been obtained. LABS/DIAGNOSTIC TESTING: WBC 9.33, hgb 12, hct 35.6, plt count 296, sodium 134.1, BUN 14.6, creatinine 0.83, hgb A1c 10.67 on admission, AST 27.9, ALT 24.6, Alkaline phosphatase 150.6. Procalcitonin less than 0.05. Urinalysis showed 2+ glucose, trace hematuria. Wound culture was obtained. ASSESSMENT: 1. Diabetic foot ulcers, bilateral lower extremities due to uncontrolled diabetes mellitus type 2. 2. Uncontrolled diabetes mellitus type 2 with an A1c of 10.67% 3. History of gastroparesis 4. History of Diabetic retinopathy 5. History of irritable bowel syndrome 6. Tobacco use 7. Status post T&A 8. Status post cholecystectomy PLAN: 1. Followup with wound cultures. 2. Currently the patient is on Vancomycin and Rocephin will be changed to 2grams IV daily 3. He does refused Lovenox injections 4. We will do a venous ultrasound of bilateral lower extremity to rule out DVT 5. We will plan to cleanse and debrided the ulcerations tomorrow 6. He has been instructed on no smoking. 7. Will order a nicotine patch 21mg daily 8. He has been ordered a sterile moist dressing changes for the day time and a dry dressing for night time 9. Home medications have been resumed 10.Morphine injections for pain control have been discontinued TIME SPENT: GREATER THAN 65 MINUTES MTDD
[2018-12-02] MEDS: VANCOMYCIN 1.5 GM in SODIUM CHLORIDE 500 ML IV SCH ×2 (09:56→20:33)
[2018-12-02] MEDS: LYRICA PO SCH ×3 (09:57→20:33)
[2018-12-02] MEDS: LOVENOX SUBCUT SCH (09:58)
--- NOTE | 2018-12-02 11:28 | PN ---
DATE OF SERVICE: 11/30/18 SUBJECTIVE: His vital signs this day were temperature 97.7, pulse rate 88, blood pressure 120/76. His respiratory rate 16, 02 sat 99% on room air. His white count 8.73. Hemoglobin 11.6, hematocrit 34.9. Sodium normal at 136.3. BUN 8.6, creatinine 0.70. Alkaline phosphatase 129.4. Today Dr. Dykes did do a debridement of the bilateral lower extremity ulcerations. He did remove the necrotic and the white tissue to the bilateral lower extremity ulceration. He still has some lower extremity swelling. This has improved slightly. The patient tolerated the procedure well with minimal discomfort. Dr. Dykes does plan to also complete another debridement on December 01, 2018. The patient continues to get Vancomycin and Rocephin intravenously. The patient is instructed on smoking cessation and nicotine patch has been ordered for this. The wound culture does show Staphylococcus Aureus. Further orders and recommendations per Dr. Dykes. [facility]
--- NOTE | 2018-12-02 11:34 | PN ---
DATE OF SERVICE: 12/01/18 SUBJECTIVE: Vital signs this morning temperature 98.1, pulse rate 104, blood pressure 99/74 , respiratory rate 18, 02 sat 97% on room air. Today he is resting in the bed. We discussed debridement today again of his lower extremities. He is agreeable to proceed with that. He states that he did have some discomfort to his feet when he ambulated on them today, it was minimal. He is trying to keep his feet elevated as much as possible. His right lower extremity is a bit more edematous than the left lower extremity but they were still edematous but have improved. He is not really having as much pain as he was having when he first was admitted to the hospital. We discussed again smoking cessation. He tells me he smokes two cigarettes a day. He tells me that he is not able to "just quit cold turkey" but he is working on this. OBJECTIVE: Heart regular rate and rhythm. Lungs are clear to auscultation. Again we plan on working on debriding again his lower extremities and Dr. Dykes will return this afternoon to debride the wounds to his feet. [facility]
[2018-12-02] MEDS: NICODERM 21 MG TD SCH (13:40)
--- NOTE | 2018-12-02 14:10 | PN ---
DATE OF SERVICE: 12/01/18 SUBJECTIVE: This patient was seen at 7:45 p.m. in Room 121. The patient's was present. I did ask the patient about how insulin pump was programmed. I did tell him that his sugars are still high and interrupted that that is how Dr. Krishnamurthy, the improvement rn that he goes and sees, decides to bring his sugar slowly lower. He had been on insulin pump since about one and one-half years ago. The mentioned that the blood sugar 260 to 290 is good for him. His blood sugar had been 400 before. The patient's hemoglobin A1C is 10.67. Again he had insulin pump for the last year and one-half. His mentioned that they are happy with the blood sugar level of 260 to 290. That is good for him according to his . He seemed to have a smirk when I suggested that it probably should be lower. I also mentioned that with infection with the sugar is higher that the immune system is not as functional as it would be below 200. The mentioned that she knows that. I was thinking of supplementing the insulin to lower levels but the doesn't want that done, would only be for Dr. Krishnamurthy to change the programming. I suggested that maybe he should go to Dr. Krishnamurthy and I will try to talk to him tomorrow with regards to that. Maybe he should see him in his office and to have a better control with this infection. The swelling has regressed in both legs. The right is bigger than the left side. He mentioned that he injured the medial part of his knee, right side when he was young that may have accounted for more swelling on the right. I told him it maybe for now what is markedly swollen although less than on admission as well as the redness. The ulceration on the plantar surface appears to be glass cleaner. There is no necrotic tissue at the center anymore. No debridement was carried today. I will probably debride it today, tomorrow and if this patient will be converted to an oral medication, this patient will then be discharged after talking to Dr. Krishnamurthy. Would like to advance his appointment with him because of the infection on both feet. Anterior tibial pulses are present. The alkaline phosphatase is still slightly elevated close to the upper normal, now 129.4, upper normal 126. He was admitted at 151. The alkaline phosphatase elevation may not be coming from the liver. Will obtain CBC, CMP tomorrow as well as procalcitonin. This patient may be converted to oral medications if the procalcitonin is normal. An MRI both feet done. MTDD
[2018-12-03] MEDS: LYRICA PO SCH ×2 (08:27→15:32)
[2018-12-03] MEDS: LOVENOX SUBCUT SCH (08:28)
[2018-12-03] MEDS: NICODERM 21 MG TD SCH (08:28)
[2018-12-03] MEDS: VANCOMYCIN 1.5 GM in SODIUM CHLORIDE 500 ML IV SCH (08:53)
[2018-12-03 14:08] VITALS: BP 121/81; TEMP 98.3
--- NOTE | 2018-12-03 15:01 | NM ---
EXAM: Bone scan, three-phase. . HISTORY: Bilateral mid plantar foot ulcers. Evaluate for evidence of osteomyelitis. Trauma to right great toe resulting in fracture approximately 1 month ago. COMPARISON: None of this type. CT 11/29/2018. PROCEDURE: The patient was injected with 24.7 mCi of 99m technetium HDP intravenously. A flow study was performed followed by immediate blood pool phase images. After an appropriate interval, delayed bone phase images were obtained. FINDINGS: Plantar perfusion phase images demonstrate modestly increased activity along the distal eugenia ntar aspect of the feet on the early portion of the perfusion examination. Immediate blood pool phase images demonstrate modest increased activity in the region of the right great toe with otherwise nor mal distribution of activity. There is subtle increased activity at the level of the base of the sec ond metatarsal. Delayed bone phase images demonstrate intense activity in the right great toe where the patient's CT examination demonstrates a fracture of the proximal phalanx. The examination also d emonstrates a small focus of increased activity at about the level of the base of the second metatars al/metatarsal tarsal articulation. This could be a sequela of the patient's reported trauma. The CT examination does not show an identifiable displaced fracture at this level. IMPRESSION: 1.The bone scan does not demonstrate typical findings of osteomyelitis. 2.The examination does show intense activity in the right great toe particularly the proximal phalanx where CT examination shows a fracture. 3.The delayed images also show a small focus of less intense activity atabout the base of the second metatarsal/metatarsal tarsal articulation which may represent a nondisplaced fracture or stress fract ure associated with the patient's trauma. 4. The CT examination shows evidence of cellulitis without a focal soft tissue abnormality. The case was discussed with the referring physician at time of dictation.
[2018-12-03] MEDS ORDERED: SILVADENE CREAM TP SCH (15:30)
--- NOTE | 2018-12-06 09:23 | PN ---
DATE OF SERVICE: 12/02/18 SUBJECTIVE: 38-year-old male admitted to the hospital because of cellulitis involving both feet with plantar ulceration. The patient has Type 1 diabetes most likely. He might be a DONALD. The patient is alert, oriented without any distress. The ulcerations are clean and debridement was done using hydrogen peroxide to initially clean the area. Fresh dressing was applied until about 10 o'clock in the evening. Swelling and redness of the right foot and leg has regressed remarkably. It also was on the left side. Pedal pulses, anterior are of good volume. I did talk to Dr. Krishnamurthy with regards to his insulin pump. I mentioned that the patient was more or less apprehensive about having a low blood sugar and that is why his sugar is higher. His was telling me that a blood sugar of 200 plus is okay for them. His A1C is still high at 10. It has improved since insulin pump has been implanted or used about 1.5 years ago. I did tell the patient in front of his and the nurse Rubi that most likely he would be discharged tomorrow, 12/03/18. I did tell him that it would be after lunch and that he should call Dr. Krishnamurthy's office as directed during our conversation. He will then tell him what to do with his insulin. He will also be advised to see Andra Bach for his followup. Wound culture both feet is MRSA and is sensitive to Gentamycin, Levofloxacin, Zyvox, Oxacillin, resistant only to Penicillin and Clindamycin. His Staph Aureus is not methicillin resistant. This patient will be prescribed on discharge most likely Bactrim. The patient is allergic to Cipro, bumble bees. I specified to him to walk on the heel, not a flat foot. While I was making rounds he passed me and the conversation of the patient's relatives in 112. He had on his shoes and walking flat with his . He was going out to smoke. ELMER
--- NOTE | 2019-02-25 11:26 | DS ---
DATE OF SERVICE: 12/03/18 FINAL DIAGNOSES: 1. Bilateral lower extremity diabetic foot ulcerations due to uncontrolled diabetes mellitus 2. Uncontrolled diabetes with an A1c of 10.67% 3. History of gastroparesis 4. History of diabetic retinopathy 5. History of irritable bowel syndrome 6. Tobacco use 7. Status post tonsillectomy and adenoidectomy 8. Status post cholecystectomy BRIEF HISTORY OF PRESENT ILLNESS/HOSPITAL COURSE: Mr. Esquivel is a pleasant 38 year old patient who presented initially through the emergency department with complaints of bilateral feet ulcers. He reports that he has lower extremity swelling for the last couple weeks and notice that he had some blisters starting on his feet. He reports that the swelling had been there for approximately 6 weeks. The blisters did open up and started draining. He reports that he has had ulcers in the past to his lower extremities. He describes them as very painful and burning type of pain. He does have uncontrolled diabetes. His A1c on admission was 10.67%. His fasting glucose was 392.6, WBC on admission was 9.33%. He was admitted for diabetic foot ulcers due to uncontrolled diabetes mellitus. He was placed on Vancomycin and Rocephin intervenously. He did refused Lovenox injections. Smoking cessation was strongly encouraged and education was continued throughout the stay. Venous ultrasounds were completed to rule out DVT. Dr. Dykes did cleanse the lower extremities and did do debridement of the lower extremities. A nicotine patch was ordered for the patient. I did review the progress note on 12/[address] Dykes he is concerned that the diabetes was most like type 1 diabetes and did report that it might be a DONALD type of diabetes. He did report that a debridement was done using hydrogen peroxide to initially clean the area. Fresh dressing after the debridement. He did report that the swelling and redness of the right foot and leg had regressed remarkably. It has also on the left side. He reported that the pedal pulses anteriorly were good volume. He reported that he talk to Dr. Krishnamurthy with regards to his insulin pump and did mention that the patient was more or less apprehensive about having a low blood sugar and that is why his sugar is higher. At discharge his WBC was 10.58, hgb 12.3 and hct 37.1, plt count 371.A1c has already been discussed. His Alkaline phosphatase was 140.6 slightly elevated. DISCHARGE MEDICATIONS: I did review the discharge packet. He would continue home medications as listed on the hospital discharge packet. New prescription was called to the pharmacy for Bactrim DS to take twice a day for 7 days as well as Silvadene cream to apply to his feet twice a day. DISCHARGE DIET: He was encouraged to continue to follow a diabetic diet. DISCHARGE ACTIVITY: His activity level will be bed rest with feet elevated above the level of his heart at all times and shoes off unless going to the doctor. DISCHARGE INSTRUCTIONS: He was instructed to clean the area with sterile water and dry thoroughly. Apply a thin layer of Silvadene to both feet wound and apply nonstick dressing and place a 4x4 gauze over the nonstick dressing and wrap with a cling and secure with tape and to perform this twice a day. He was to call with a followup with Dr. Krishnamurthy his derrick car operator for an appointment SUL[place]NA and he is to call Andra Bach his primary care provider for an appointment on Thursday. He was encouraged to continue not smoking. TIME SPENT: GREATER THAN 30 MINUTES MTDD
== END 2018-12-03 16:03 | disposition home or self-care (01) | DRG 914 ==
LOC: ED 00:06 → MEDSURG B 01:40
PROVIDERS: ADMIT General Practice; ATTEND General Practice
DX: Z72.0 Tobacco use; E10.621 Type 1 diabetes mellitus with foot ulcer; B95.62 Methicillin resistant Staphylococcus aureus infection as the cause of diseases classified elsewhere; L97.501 Non-pressure chronic ulcer of other part of unspecified foot limited to breakdown of skin; S99.921A Unspecified injury of right foot, initial encounter; E11.65 Type 2 diabetes mellitus with hyperglycemia; M25.571 Pain in right ankle and joints of right foot; S99.922A Unspecified injury of left foot, initial encounter; M25.572 Pain in left ankle and joints of left foot

== ENCOUNTER 2018-12-08 09:49 | Outpatient (CLI) | END 2018-12-08 09:50 | disposition home or self-care (01) | LOC: WOUND 09:49 | PROVIDERS: ATTEND Nurse Practitioner Family | DX: E11.621 Type 2 diabetes mellitus with foot ulcer (principal); L97.522 Non-pressure chronic ulcer of other part of left foot with fat layer exposed; L97.512 Non-pressure chronic ulcer of other part of right foot with fat layer exposed ==

== ENCOUNTER 2018-12-15 08:32 | Outpatient (CLI) | END 2018-12-15 08:33 | disposition home or self-care (01) | LOC: WOUND 08:32 | PROVIDERS: ATTEND Nurse Practitioner Family | DX: E11.621 Type 2 diabetes mellitus with foot ulcer (principal); L97.522 Non-pressure chronic ulcer of other part of left foot with fat layer exposed; L97.512 Non-pressure chronic ulcer of other part of right foot with fat layer exposed | CPT/HCPCS: 97597 ==

== ENCOUNTER 2023-01-19 00:32 | Inpatient (IN) ==
[2023-01-19] MEDS ORDERED: LACTATED RINGERS 1,000 ML IV STA ×3 (01:05→20:10)
[2023-01-19] MEDS ORDERED: HUMULIN R IVP STA (01:06)
--- NOTE | 2023-01-19 01:08 | ED.PDOC ---
General ED Provider: Dr. JAIR PAULA DO Chief Complaint: Diabetes Stated Complaint: 42 YOM with PMHx of tracheostomy tube placement, TBI, and DKA who presents to the emergency department with chief complaint of hyperglycemia and readings of glucose > 600 on home glucometer. Patients spouse reports patient has been difficult to manage at home and has been refusing his home insulin. Patient unable to elaborate as to why due to his TBI and is not a reliable historian at this time. Patients spouse reports he was recently hospitalized for over a week and had a serum glucose during previous episode in excess of 1600. Denies recent fever, syncope, chest pain, SOB, N/V/D, abdominal pain, dysuria, flank pain, or new focal weakness/numbness. Time Seen by Provider: 01/19/23 01:05 Information Source: Patient Primary Care Provider: JANES COTTER Nursing and Triage Documentation Reviewed and Agree: Yes Review of Systems Review Of Systems Constitutional: Reports No symptoms All Other Systems: Reviewed and Negative [facility] Social History Smoking and tobacco status: Current every day smoker Physical Exam Physical Exam Appearance: Reports Ill-appearing and Thin Ill-appearing: Mild Pain Distress: None Eyes: Reports JERILYN and EOMI ENT: Reports Ears normal, Nose normal and Dry mucosa Neck: Supple Respiratory: Reports Airway patent and Other (+ kussmauls respirations) Cardiovascular: Reports No rub, No murmur and Tachycardia GI/: Reports Soft and Nontender Musculoskeletal: Reports Normal strength and ROM intact Skin: Reports Warm, Dry and Normal color Neurological: Reports Sensation intact, Motor intact, Alert and Oriented Psychiatric: Reports Other (flat mood and affect) Interpretation EKG Interpretation EKG Interpretation By: ED Physician Time of EKG #1: 02:00 Rate: Tachy Rhythm: Sinus Ectopy: None Coulter: NL ST Segment: Normal Interpretation: No evidence of STEMI on my independent interpretation of this EKG EKG Comparison: No significant changes Re-Evaluation Re-Evaluation Time of Re-Evaluation: 04:11 Status: Improved Vital Signs Stable: Yes Pain Level: 0 Appearance: NAD Lungs: Clear Skin: Warm and Dry Neuro: Alert and Oriented X3 CV: Other (regularly tachycardic) Critical Care Note Critical Care Note Total Critical Care Time (mins): 90 Course Course 01/19/23 01:05 01/19/23 03:30 Orders, Labs, Meds: Lab Review 01/19/23 01/19/23 01/19/23 01:05 01:06 01:08 WBC 10.39 H RBC 3.80 L Hgb 10.7 L Hct 37.1 L MCV 97.6 H MCH 28.2 MCHC 28.8 L RDW Coeff of Chayo 15.0 H Plt Count 455 H Immature Gran % (Auto) 4.4 Neut % (Auto) 74.4 Lymph % (Auto) 10.8 [place] % (Auto) 9.9 Eos % (Auto) 0.0 Baso % (Auto) 0.5 Neut # (Auto) 7.7 H Lymph # (Auto) 1.1 [place] # (Auto) 1.0 Eos # (Auto) 0.0 Baso # (Auto) 0.1 Immature Gran # (Auto) 0.5 VBG pH VBG pCO2 VBG pO2 VBG HCO3 VBG O2 Saturation Sodium 126.3 L Potassium 7.15 H* Chloride 92.1 L Carbon Dioxide < 5.0 L* Anion Gap 36.22163 BUN 29.4 H Creatinine 1.54 H Estimated GFR (MDRD) 50.00 BUN/Creatinine Ratio 19.09 Glucose 1084.0 H* Calcium 9.10 Total Bilirubin 0.33 AST 95.4 H ALT 104.8 H Alkaline Phosphatase 243.1 H Troponin I < 0.012 Total Protein 6.86 Albumin 3.97 Globulin 2.89 Albumin/Globulin Ratio 1.37 Lipase Urine Color Urine Clarity Urine pH Ur Specific [place] Urine Protein Urine Glucose (UA) Urine Ketones Urine Blood Urine Nitrite Urine Bilirubin Urine Urobilinogen Ur Leukocyte Esterase Urine Microscopic RBC Ur Squamous Epith Cells Acetone, Qual Large SARS CoV-2 RNA Rapid YUNIOR 01/19/23 01/19/23 01/19/23 01:09 01:15 01:19 WBC RBC Hgb Hct MCV MCH MCHC RDW Coeff of Chayo Plt Count Immature Gran % (Auto) Neut % (Auto) Lymph % (Auto) [place] % (Auto) Eos % (Auto) Baso % (Auto) Neut # (Auto) Lymph # (Auto) [place] # (Auto) Eos # (Auto) Baso # (Auto) Immature Gran # (Auto) VBG pH 7.03 L VBG pCO2 16 L VBG pO2 53 H VBG HCO3 4.2 L VBG O2 Saturation 66.9 Sodium Potassium Chloride Carbon Dioxide Anion Gap BUN Creatinine Estimated GFR (MDRD) BUN/Creatinine Ratio Glucose Calcium Total Bilirubin AST ALT Alkaline Phosphatase Troponin I Total Protein Albumin Globulin Albumin/Globulin Ratio Lipase 320.0 H Urine Color Yellow Urine Clarity Clear Urine pH 5.0 Ur Specific [place] 1.015 Urine Protein Trace H Urine Glucose (UA) 2+ H Urine Ketones 4+ Urine Blood Trace-intact H Urine Nitrite Negative Urine Bilirubin Negative Urine Urobilinogen 0.2 Ur Leukocyte Esterase Negative Urine Microscopic RBC 0-2 Ur Squamous Epith Cells Not present Acetone, Qual SARS CoV-2 RNA Rapid YUNIOR 01/19/23 01/19/23 01/19/23 03:00 03:16 03:30 WBC RBC Hgb Hct MCV MCH MCHC RDW Coeff of Chayo Plt Count Immature Gran % (Auto) Neut % (Auto) Lymph % (Auto) [place] % (Auto) Eos % (Auto) Baso % (Auto) Neut # (Auto) Lymph # (Auto) [place] # (Auto) Eos # (Auto) Baso # (Auto) Immature Gran # (Auto) VBG pH 7.15 L VBG pCO2 19 L VBG pO2 86 H VBG HCO3 6.6 L VBG O2 Saturation 92.9 H Sodium 128.1 L Potassium 5.64 H Chloride 95.5 L Carbon Dioxide < 5.0 L* Anion Gap 33.90890 BUN 28.5 H Creatinine 1.23 H Estimated GFR (MDRD) 65.00 BUN/Creatinine Ratio 23.17 Glucose 818.9 H* D Calcium 8.94 Total Bilirubin 0.25 AST 63.3 H D ALT 95.2 H Alkaline Phosphatase 200.4 H D Troponin I Total Protein 6.42 Albumin 3.54 Globulin 2.88 Albumin/Globulin Ratio 1.22 Lipase Urine Color Urine Clarity Urine pH Ur Specific [place] Urine Protein Urine Glucose (UA) Urine Ketones Urine Blood Urine Nitrite Urine Bilirubin Urine Urobilinogen Ur Leukocyte Esterase Urine Microscopic RBC Ur Squamous Epith Cells Acetone, Qual SARS CoV-2 RNA Rapid YUNIOR Negative Orders Category Date Time Status ADMIT PATIENT INPATIENT .TO [facility] (MONITORED BED) ADMISSION 01/19/23 04:00 Active EKG-(ED ONLY) Stat CARDIO 01/19/23 01:07 Completed BLOOD GLUCOSE MONITORING (MED/SURG) Q1HR CARE 01/19/23 01:36 Active REMINDER: BMP Q4hrs Until Anion Gap < 12 Q4HR CARE 01/19/23 04:04 Active TELEMETRY MONITORING TELE CARE 01/19/23 04:01 Active ACETONE, QUALITATIVE Stat LAB 01/19/23 01:06 Completed BMP [BASIC METABOLIC PANEL] Routine LAB 01/19/23 04:56 Received CBC W/ AUTO DIFF Stat LAB 01/19/23 01:05 Completed CMP [COMPREHENSIVE METABOLIC PANEL] Stat LAB 01/19/23 01:05 Completed CMP [COMPREHENSIVE METABOLIC PANEL] Stat LAB 01/19/23 03:30 Completed COVID [SARS COV-2 RNA RAPID YUNIOR] Stat LAB 01/19/23 03:00 Completed LIPASE Stat LAB 01/19/23 01:09 Completed PROBNP ED [NT-PROBNP(ED)] Stat LAB 01/19/23 Completed TROPONIN I Stat LAB 01/19/23 01:08 Completed URINALYSIS C & S IF INDICATED Stat LAB 01/19/23 01:15 Completed VBG [VENOUS BLOOD GAS] Routine LAB 01/19/23 05:00 Completed VBG [VENOUS BLOOD GAS] Stat LAB 01/19/23 01:19 Completed VBG [VENOUS BLOOD GAS] Stat LAB 01/19/23 03:16 Completed Insulin Regular in 0.9 % NaCl [Myxredlin 100 Unit/100 Meds 01/19/23 02:00 Active ml Bag] 100 unit in 100 ml IV TITRATION Insulin Regular, Human [Humulin R] Meds 01/19/23 01:06 Discontinued 10 unit IVP ONCE STA Nicotine 21 mg [Nicoderm 21 mg] Meds 01/19/23 02:34 Discontinued 1 patch TD ONCE ONE Olanzapine [Zyprexa] Meds 01/19/23 04:09 Active 10 mg IM ONCE PRN Ringers Lactated Solution [Lactated Ringers] 1,000 ml Meds 01/19/23 01:05 Discontinued IV BOLUS Ringers Lactated Solution [Lactated Ringers] 1,000 ml Meds 01/19/23 02:09 Discontinued IV BOLUS Sodium Chloride 0.45 % [Sodium Chloride] 1,000 ml Meds 01/19/23 04:30 Active IV 250 mls/hr CXR [CHEST, 1V AP ONLY] Stat RADS 01/19/23 03:54 Completed Medications Generic Name Dose Route Start Last Admin Trade Name Freq PRN Reason Stop Dose Admin INSULIN REGULAR IN 0.9 % NACL 100 unit in 100 mls @ 6.38 mls/hr 01/19/23 02:00 01/19/23 04:30 Myxredlin 100 Unit/100 Ml Bag IV 0.16 unit/kg/hr TITRATION BRANDON 10.4 mls/hr Titration Protocol 0.1 UNIT/KG/HR Sodium Chloride 1,000 mls @ 250 mls/hr 01/19/23 04:30 Sodium Chloride IV .Q4H BRANDON Olanzapine 10 mg 01/19/23 04:09 Olanzapine 10 Mg Vial IM ONCE PRN Agitation Discontinued Medications Generic Name Dose Route Start Last Admin Trade Name Freq PRN Reason Stop Dose Admin Lactated Ringer's 1,000 mls @ 2,000 mls/hr 01/19/23 01:05 01/19/23 02:00 Lactated Ringers IV 01/19/23 01:34 Infused BOLUS STA Infusion Lactated Ringer's 1,000 mls @ 1,000 mls/hr 01/19/23 02:09 01/19/23 03:12 Lactated Ringers IV 01/19/23 03:08 Infused BOLUS STA Infusion Insulin Human Regular 10 unit 01/19/23 01:06 01/19/23 01:24 Insulin Regular, Human 100 Unit/Ml (3ml) Vial IVP 01/19/23 01:07 10 unit ONCE STA Administration Nicotine 1 patch 01/19/23 02:34 01/19/23 02:42 Nicotine 21 Mg Patch.Td24 TD 01/19/23 02:35 1 patch ONCE ONE Administration Vital Signs: Temp Pulse Resp BP Pulse Ox 01/19/23 04:30 112 H 16 141/96 H 01/19/23 03:30 110 H 19 137/95 H 01/19/23 02:26 113 H 25 H 125/80 01/19/23 00:35 98.4 F 119 H 24 H 121/79 99 Discharge Plan Discharge Patient Disposition: ADMITTED INPATIENT Discharge Problem: LEN (acute kidney injury) DKA (diabetic ketoacidosis) Qualifiers: Diabetes mellitus type: type 1 Diabetes mellitus complication detail: without coma Qualified Code(s): E10.10 - Type 1 diabetes mellitus with ketoacidosis without coma Did you review [place] for ALL controlled substances?: Not Applicable ED Provider: JAIR PAULA Condition: Stable Physician Progress Note: 42 YOM with PMHx of tracheostomy tube placement, TBI, and DKA who presents to the emergency department with chief complaint of hyperglycemia and readings of glucose > 600 on home glucometer. Patient tachycardic and tachypneic on ED arrival. Chart and ED triage notes reviewed. Clinical examination notable for dry oral mucosa, tachycardia, and kussmauls respirations. Labs reviewed and consistent with DKA and LEN. Crystalloid fluid boluses and insulin bolus + gtt administered with repeat gas demonstrating improvement in pH. Heart rate trending downwards. Initial AG ~ 36. Repeat pending and I anticipate it will close with continuation of current management. Serum K elevated which will also normalize with ongoing crystalloid resuscitation and insulin gtt. Discussed with hospitalist surgical product sales consultant and accepts for admission at this time.
[2023-01-19 01:17] LABS: BASOPHILS # (AUTO) 0.1 K/uL (0-0.2); BASOPHILS % (AUTO) 0.5 % (0.0-3.0); HEMATOCRIT 37.1 % (42.0-52.0); HEMOGLOBIN 10.7 g/dl (14.0-18.0); IMMATURE GRANULOCYTE # (AUTO) 0.5 (0.0-1.0); IMMATURE GRANULOCYTE % (AUTO) 4.4 % (0.0-5.0); LYMPHOCYTES # (AUTO) 1.1 K/uL (0.60-3.4); LYMPHOCYTES % (AUTO) 10.8 (10.0-50.0); MEAN CORPUSCULAR HEMOGLOBIN 28.2 pg (27.0-31.0); MEAN CORPUSCULAR HGB CONC 28.8 (31.8-35.4); MEAN CORPUSCULAR VOLUME 97.6 fl (80.0-94.0); MONOCYTES % (AUTO) 9.9 (0-10); NEUTROPHILS # (AUTO) 7.7 K/ul (2.0-6.9); NEUTROPHILS % (AUTO) 74.4 % (42.2-75.2); PLATELET COUNT 455 10^3/uL (140-440); WHITE BLOOD COUNT 10.39 K/ul (4.2-10.2)
[2023-01-19 01:27] LABS: BILIRUBIN,URINE Negative (NEGATIVE); CLARITY,URINE Clear (CLEAR); COLOR,URINE Yellow (YELLOW); GLUCOSE, URINE (UA) 2+ (NEGATIVE); KETONES,URINE 4+ (NEGATIVE); LEUKOCYTE ESTERASE ,URINE Negative (NEGATIVE); NITRITE,URINE Negative (NEGATIVE); PROTEIN,URINE Trace (NEGATIVE); URINE, BLOOD Trace-intact (NEGATIVE); UROBILINOGEN,URINE 0.2 (0.2)
[2023-01-19 01:27] LABS: VBG HCO3 4.2 (22-26); VBG OXYGEN SATURATION 66.9 (60-80); VBG PH 7.03 (7.30-7.40)
[2023-01-19 01:29] LABS: SQUAMOUS EPITHELIAL CELL,UR NOT PRESENT (0-5)
[2023-01-19 01:33] LABS: ALANINE AMINOTRANSFERASE 104.8 U/L (0-50); ALBUMIN 3.97 g/dL (3.5-5.0); ALKALINE PHOSPHATASE 243.1 U/L (38-126); ASPARTATE AMINO TRANSFERASE 95.4 U/L (17-59); BILIRUBIN,TOTAL 0.33 mg/dL (0.2-1.3); BLOOD UREA NITROGEN 29.4 mg/dL (9-20); CHLORIDE 92.1 mmol/L (98-107); CREATININE 1.54 mg/dL (0.60-1.10); SODIUM 126.3 mmol/L (134.5-145); TOTAL PROTEIN 6.86 g/dL (6.3-8.2)
[2023-01-19 01:48] LABS: POTASSIUM 7.15 mmol/L (3.5-5.1)
[2023-01-19 01:49] LABS: CARBON DIOXIDE < 5.0 mmol/L (22-30.0)
[2023-01-19 01:52] LABS: URINE RBC, MICROSCOPIC 0-2 (0-2)
[2023-01-19] MEDS: MYXREDLIN 100 UNIT/100 ML BAG 100 UNIT/100 ML PLAST..BAG IV SCH ×3 (02:26→14:50)
[2023-01-19] MEDS ORDERED: NICODERM 21 MG TD ONE (02:34)
[2023-01-19 03:47] LABS: VBG HCO3 6.6 (22-26); VBG OXYGEN SATURATION 92.9 (60-80); VBG PH 7.15 (7.30-7.40)
[2023-01-19 04:09] LABS: SARS COV-2 RNA RAPID NAAT NEGATIVE (NEGATIVE)
[2023-01-19] MEDS ORDERED: ZYPREXA IM PRN ×2 (04:09→16:35)
[2023-01-19 04:13] LABS: ALANINE AMINOTRANSFERASE 95.2 U/L (0-50); ALBUMIN 3.54 g/dL (3.5-5.0); ALKALINE PHOSPHATASE 200.4 U/L (38-126); ASPARTATE AMINO TRANSFERASE 63.3 U/L (17-59); BILIRUBIN,TOTAL 0.25 mg/dL (0.2-1.3); BLOOD UREA NITROGEN 28.5 mg/dL (9-20); CALCIUM 8.94 mg/dL (8.4-10.2); CHLORIDE 95.5 mmol/L (98-107); CREATININE 1.23 mg/dL (0.60-1.10); POTASSIUM 5.64 mmol/L (3.5-5.1); SODIUM 128.1 mmol/L (134.5-145); TOTAL PROTEIN 6.42 g/dL (6.3-8.2)
[2023-01-19 04:23] LABS: CARBON DIOXIDE < 5.0 mmol/L (22-30.0); GLUCOSE 818.9 mg/dL (74-106)
[2023-01-19] MEDS ORDERED: SODIUM CHLORIDE 1,000 ML IV SCH ×2 (04:30→06:00)
--- NOTE | 2023-01-19 04:42 | DI ---
EXAM: CHEST, ONE-VIEW HISTORY: Diabetic keto acidosis FINDINGS: Cardiac and mediastinal contours are normal. Pulmonary vasculature is normal. Lungs are clear. No acute chest wall abnormality. Multilevel healing left rib fractures. IMPRESSION: No acute cardiopulmonary disease
[2023-01-19 05:07] LABS: VBG HCO3 10.8 (22-26); VBG OXYGEN SATURATION 85.4 (60-80); VBG PH 7.21 (7.30-7.40)
[2023-01-19 05:13] LABS: BLOOD UREA NITROGEN 28.7 mg/dL (9-20); CALCIUM 8.65 mg/dL (8.4-10.2); CHLORIDE 96.4 mmol/L (98-107); CREATININE 1.07 mg/dL (0.60-1.10); POTASSIUM 5.13 mmol/L (3.5-5.1); SODIUM 127.5 mmol/L (134.5-145)
[2023-01-19 05:23] LABS: CARBON DIOXIDE 8.4 mmol/L (22-30.0); GLUCOSE 679.9 mg/dL (74-106)
[2023-01-19 06:04] VITALS: BMI 19.5
[2023-01-19] MEDS: SODIUM CHLORIDE 0.45%-KCL 20 MEQ 1,000 ML IV SCH ×2 (06:31→09:49)
[2023-01-19] MEDS ORDERED: DEPAKOTE PO SCH (09:00)
[2023-01-19 09:18] LABS: VBG HCO3 20.1 (22-26); VBG OXYGEN SATURATION 97.7 (60-80); VBG PH 7.38 (7.30-7.40)
[2023-01-19 09:22] LABS: BLOOD UREA NITROGEN 23.6 mg/dL (9-20); CALCIUM 9.05 mg/dL (8.4-10.2); CARBON DIOXIDE 16.5 mmol/L (22-30.0); CHLORIDE 99.4 mmol/L (98-107); CREATININE 0.79 mg/dL (0.60-1.10); GLUCOSE 329.3 mg/dL (74-106); POTASSIUM 4.51 mmol/L (3.5-5.1); SODIUM 129.6 mmol/L (134.5-145)
--- NOTE | 2023-01-19 09:37 | PCM ---
Date of Service Date Seen by Provider: 01/19/23 Time Seen by Provider: 08:45 Admit Day/Time Admission Date: 01/19/23 Reason for Admission Chief Complaint: DKA/LEN Hospital Provider Hospital Provider: NOVA KHAN MD, [facility] Primary Care Physician Primary Care Physician: JANES COTTER History of Present Illness History of Present Illness: 42 yo male presented to the ER with spouse for hyperglycemia. Glucometer showing >600 at home. reported to provider in ER that he has not been taking his insulin. In September, patient sustained a TBI with multiple other injuries including subarachnoid hemorrhage and subdural hematoma. He was at [facility] for 32 days and then inpatient rehab for 2 weeks before discharge home. Since then, he has been in and out of the hospital frequently for DKA and is mismanaging his insu wan. Most recently, he was admitted at [facility] on 01/09 for DKA with blood glucose >1600 and required intubation due to unconscious state. He eloped from his room on 01/16/23. On that day, case management was working on placement to a SNF or TBI facility per 's request due to patient's inability to take care of himself even with her guidance. Upon my exam, patient was able to tell me his name. Unable to voice correct time, location, and situation. States it is 2007 and he is in [facility]. Patient denied being in the hospital recently that he knows of. Reports that he came to the hospital because he stomach was hurting but denies any complaints. Stated he had been taking his insulin like he is supposed to. Repeatedly asking to go outside for "8 minutes". Asked patient about his and states her car was right outside the window of his room (which was not hers) and that she was wandering around in this place somewhere. Case Discussed With Case Discussed With: Patient's case was discussed with the ER Physicians, Dr. Sadler [facility] Medical History (Updated 01/19/23 @ 09:37 by KYMBERLY TERRAZAS) Fracture of occipital bone of skull with loss of consciousness S02.119A - Unspecified fracture of occiput, initial encounter for closed fracture (ICD-10) S06.9X9A - Unspecified intracranial injury with loss of consciousness of unspecified duration, initial encounter (ICD-10) Hemopneumothorax on left J94.2 - Hemothorax (ICD-10) Retroperitoneal hematoma K68.3 - Retroperitoneal hematoma (ICD-10) Subdural hematoma S06.5XAA - Traumatic subdural hemorrhage with loss of consciousness status unknown, initial encounter (ICD-10) Subarachnoid hemorrhage I60.9 - Nontraumatic subarachnoid hemorrhage, unspecified (ICD-10) Uncontrolled diabetes mellitus E11.9 - TYPE 2 DIABETES MELLITUS WITHOUT COMPLICATIONS (ICD-10) Diabetic neuropathy E11.40 - TYPE 2 DIABETES MELLITUS WITH DIABETIC NEUROPATHY, UNSP (ICD-10) TBI (traumatic brain injury) S06.9XAA - Unspecified intracranial injury with loss of consciousness status unknown, initial encounter (ICD-10) Surgical History (Updated 01/19/23 @ 09:37 by KYMBERLY TERRAZAS) Hx of tracheostomy Z98.890 - Other specified postprocedural states (ICD-10) Family History Other No known health problems Social History Smoking and tobacco status: Current every day smoker Allergies Allergies Allergy/AdvReac Type Severity Reaction Status Date / Time ciprofloxacin [From Cipro] AdvReac Intermediate SEVERE Verified 01/19/23 06:05 Abdominal Pain NSAIDS (Non-Steroidal AdvReac ELEVATED Verified 01/19/23 06:05 Anti-Inflamma LIVER ENZYMES BUMBLE BEES AdvReac Severe Anaphylaxis Uncoded 01/19/23 06:05 Current Medications Home Medications insulin pump-infusion set-blood glucose meter kit (Accu-Chek Combo System kit) 12/22/17 [History Confirmed 01/19/23 Last Taken Unknown] insulin regular human 100 unit/mL injection solution (Humulin R Regular U-100 Insulin) 0 unit (0 mL) subcut PRN PRN Hyperglycemia 12/03/18 [Rx Confirmed 01/19/23 Last Taken Unknown] pregabalin 75 mg capsule (Lyrica) 75 mg PO TID 12/03/18 [Rx Confirmed 01/19/23 Last Taken 01/18/23] epinephrine 0.3 mg/0.3 mL injection, auto-injector (EpiPen 2-Trev) 0.3 ml IM ONCE 08/25/22 [History Confirmed 01/19/23 Last Taken Unknown] glucagon 1 mg/0.2 mL subcutaneous auto-injector 1 mg subcut ONCE PRN hypoglycemia 08/25/22 [History Confirmed 01/19/23 Last Taken Unknown] wiwwmo-[id number]-plbvhbl 12,000-38,000-60,000 unit capsule,delayed rel (Creon) 1 cap PO TID 08/25/22 [History Confirmed 01/19/23 Last Taken 01/18/23] divalproex 250 mg tablet,delayed release 250 mg PO Q8H 01/19/23 [History Confirmed 01/19/23 Last Taken Unknown] hydrocodone 5 mg-acetaminophen 325 mg tablet 1 tab PO Q6H PRN pain 01/19/23 [History Confirmed 01/19/23 Last Taken Unknown] propranolol 40 mg tablet 40 mg PO TID 01/19/23 [History Confirmed 01/19/23 Last Taken Unknown] sulfamethoxazole 800 mg-trimethoprim 160 mg tablet 1 tab PO BID 01/19/23 [History Confirmed 01/19/23 Last Taken Unknown] trazodone 50 mg tablet 50 mg PO .Nightly 01/19/23 [History Confirmed 01/19/23 Last Taken Unknown] Home Divalproex Sodium (Divalproex Sodium 250 Mg Tablet.) 500 mg PO Q8H [facility] Last Admin: 01/20/23 08:11 Dose: 500 mg Ferrous Sulfate (Ferrous Sulfate 324 Mg Tablet.) 324 mg PO BID [facility] Last Admin: 01/20/23 10:40 Dose: Not Given Lactated Ringer's (Lactated Ringers) 1,000 mls @ 150 mls/hr IV .Q6H40M [facility] Last Admin: 01/20/23 06:41 Dose: 150 mls/hr NOREPINEPHRINE BIT/0.9 % NACL (Levophed 4 Mg/250 Ml Ns) 4 mg in 250 mls @ 18.75 mls/hr IV TITRATION [facility]; Protocol Last Titration: 01/20/23 10:09 Dose: 4 mcg/min, 15 mls/hr Insulin Human Regular (Insulin Regular, Human 100 Unit/Ml (3ml) Vial) 0 unit SUBCUT ACHS2 [facility]; Protocol Last Admin: 01/20/23 10:33 Dose: Not Given Olanzapine (Olanzapine 10 Mg Vial) 10 mg IM ONCE PRN PRN Reason: Agitation Last Admin: 01/19/23 09:31 Dose: 10 mg Olanzapine (Olanzapine 10 Mg Vial) 10 mg IM Q6H PRN PRN Reason: Agitation Pregabalin (Pregabalin 75 Mg Capsule) 75 mg PO TID [facility] Last Admin: 01/20/23 10:40 Dose: Not Given Propranolol HCl (Propranolol Hcl 20 Mg Tablet) 40 mg PO TID [facility] Last Admin: 01/20/23 10:40 Dose: Not Given Risperidone (Risperidone 0.25 Mg Tablet) 0.5 mg PO BID [facility] Last Admin: 01/20/23 10:41 Dose: Not Given Sodium Chloride (Sodium Chloride 1 Gm Tablet) 1 gm PO TID [facility] Last Admin: 01/20/23 10:41 Dose: Not Given Trazodone HCl (Trazodone Hcl 50 Mg Tablet) 50 mg PO BEDTIME [facility] Last Admin: 01/19/23 20:31 Dose: Not Given Trimethoprim/Sulfamethoxazole (Sulfamethoxazole/Trimethoprim 800/160 Mg Tablet) 1 tab PO BID [facility] Stop: 01/22/23 08:59 Last Admin: 01/20/23 10:40 Dose: Not Given Discontinued Medications Dextrose (Dextrose 50 % In Water 50 Ml Disp.Syrin) 25 ml IVP ONCE STA Stop: 01/19/23 16:07 Last Admin: 01/19/23 16:17 Dose: 25 ml Divalproex Sodium (Divalproex Sodium 250 Mg Tablet.Dr) 250 mg PO Q8H [facility] Last Admin: 01/19/23 09:42 Dose: 250 mg Haloperidol Lactate (Haloperidol Lactate 5 Mg/Ml Vial) 10 mg IM ONCE ONE Stop: 01/20/23 02:31 Last Admin: 01/20/23 03:17 Dose: Not Given Haloperidol Lactate (Haloperidol Lactate 5 Mg/Ml Vial) 5 mg IM ONCE ONE Stop: 01/20/23 02:31 Last Admin: 01/20/23 03:16 Dose: 5 mg Lactated Ringer's (Lactated Ringers) 1,000 mls @ 2,000 mls/hr IV BOLUS STA Stop: 01/19/23 01:34 Last Infusion: 01/19/23 02:00 Dose: Infused INSULIN REGULAR IN 0.9 % NACL (Myxredlin 100 Unit/100 Ml Bag) 100 unit in 100 mls @ 6.38 mls/hr IV TITRATION [facility]; Protocol Last Admin: 01/20/23 03:18 Dose: Not Given Lactated Ringer's (Lactated Ringers) 1,000 mls @ 1,000 mls/hr IV BOLUS STA Stop: 01/19/23 03:08 Last Infusion: 01/19/23 03:12 Dose: Infused Sodium Chloride (Sodium Chloride) 1,000 mls @ 250 mls/hr IV .Q4H [facility] Last Admin: 01/19/23 05:37 Dose: Not Given Potassium Chloride/Sodium Chloride (Sodium Chloride 0.45%-Kcl 20 Meq) 1,000 mls @ 250 mls/hr IV .Q4H [facility] Last Infusion: 01/20/23 09:40 Dose: 0 mls/hr Potassium Chloride/Dextrose/Sod Cl (D5%-1/2ns-Kcl 20 Meq/L Iv Eloise) 1,000 mls @ 250 mls/hr IV .Q4H [facility] Last Infusion: 01/20/23 09:37 Dose: Infused Lactated Ringer's (Lactated Ringers) 1,000 mls @ 500 mls/hr IV BOLUS STA Stop: 01/19/23 22:09 Last Infusion: 01/19/23 22:16 Dose: Infused Insulin Human Regular (Insulin Regular, Human 100 Unit/Ml (3ml) Vial) 10 unit IVP ONCE STA Stop: 01/19/23 01:07 Last Admin: 01/19/23 01:24 Dose: 10 unit Insulin Human Regular (Insulin Regular, Human 100 Unit/Ml (3ml) Vial) 0 unit SUBCUT PRN PRN; Protocol PRN Reason: Hyperglycemia Last Admin: 01/20/23 06:34 Dose: 7 unit Lorazepam (Lorazepam Inj 2 Mg/Ml Disp.Syringe) 2 mg IM ONCE ONE Stop: 01/20/23 02:31 Last Admin: 01/20/23 02:35 Dose: 2 mg Nicotine (Nicotine 21 Mg Patch.Td24) 1 patch TD ONCE ONE Stop: 01/19/23 02:35 Last Admin: 01/19/23 02:42 Dose: 1 patch Review of Systems Constitutional: Reports No symptoms Head: Reports Normocephalic and Atraumatic Eyes: Reports No symptoms Ears: Reports No symptoms Nose: Reports No symptoms Mouth: Reports No symptoms Throat: Reports No symptoms Cardiovascular: Reports No symptoms Respiratory: Reports No symptoms Gastrointestinal: Reports No symptoms Genitourinary: Reports No Symptoms Musculoskeletal: Reports No symptoms Endocrine: Reports Other (Hyperglycemia) Hematology: Reports No symptoms Immunology: Reports No symptoms Neurological: Reports No symptoms Psychiatric: Reports No symptoms Physical examination Most Recent Vital Signs: Most Recent Vital Signs Temperature 98.7 F 01/19/23 06:00 Temperature Source Oral 01/19/23 06:00 Temperature Source Infrared 01/19/23 00:35 Pulse Rate 108 H 01/19/23 08:54 Respiratory Rate 16 01/19/23 08:54 Blood Pressure 126/69 01/19/23 07:17 Blood Pressure Mean 88 01/19/23 07:17 Blood Pressure Left Arm 122/73 01/19/23 05:48 Blood Pressure Location Left Arm 01/19/23 06:00 Blood Pressure Position Sitting 01/19/23 06:00 O2 Sat by Pulse Oximetry 99 01/19/23 06:00 Oxygen Delivery Method Room Air 01/19/23 08:54 Height 6 ft 01/19/23 05:48 Weight 143 lb 12.8 oz 01/19/23 05:48 Telemetry Type Remote Telemetry 01/19/23 07:00 Telemetry Monitoring Continues 01/19/23 07:00 Telemetry Heart Rate 108 H 01/19/23 07:00 Telemetry SPO2 99 01/19/23 07:00 EKG MD Interval 0.17 01/19/23 07:00 EKG QRS Interval 0.07 01/19/23 07:[address] 01/19/23 07:00 Appearance: Positive No Apparent Distress, Thin and Cachectic Skin: Positive Warm and Other (pale) HEENT: Positive Normocephalic and PERRLA Neck: Positive Supple and Midline Trachea Chest/Lungs: Positive Symmetrical With Equal Breath Sounds, Clear to Auscultation Bilaterally and Good Air Movement all 4 Lung Suarez Heart: Positive RRR and Pulses Normal GI/: Positive Soft, Nontender and Bowel Sounds Normal Musculoskeletal: Positive Instability Extremities: Positive Intact Peripheral Pulses, Stable Joints Without Laxity and Good ROM in All Joints Neurological: Positive Sensation Intact, Motor intact, Alert and Disorinted (to time, place, situation) Psychiatric: Negative Oriented x4, Appropriate Mood (agitated intermittently), Appropriate Affect, Intact Memory (unable to recall recent events), Good Short-Term Recall, Good Long-Term Recall, Normal Judgement, Normal Insight, Other or Not Examined Labs This Visit Labs This Visit: Labs This Visit 01/19/23 01/19/23 01/19/23 01:05 01:06 01:08 WBC 10.39 H RBC 3.80 L Hgb 10.7 L Hct 37.1 L MCV 97.6 H MCH 28.2 MCHC 28.8 L RDW Coeff of Chayo 15.0 H Plt Count 455 H Immature Gran % (Auto) 4.4 Neut % (Auto) 74.4 Lymph % (Auto) 10.8 Buchanan % (Auto) 9.9 Eos % (Auto) 0.0 Baso % (Auto) 0.5 Neut # (Auto) 7.7 H Lymph # (Auto) 1.1 Buchanan # (Auto) 1.0 Eos # (Auto) 0.0 Baso # (Auto) 0.1 Immature Gran # (Auto) 0.5 VBG pH VBG pCO2 VBG pO2 VBG HCO3 VBG O2 Saturation Sodium 126.3 L Potassium 7.15 H* Chloride 92.1 L Carbon Dioxide < 5.0 L* Anion Gap 36.86248 BUN 29.4 H Creatinine 1.54 H Estimated GFR (MDRD) 50.00 BUN/Creatinine Ratio 19.09 Glucose 1084.0 H* Calcium 9.10 Total Bilirubin 0.33 AST 95.4 H ALT 104.8 H Alkaline Phosphatase 243.1 H Troponin I < 0.012 NT-Pro-B Natriuret Pep Total Protein 6.86 Albumin 3.97 Globulin 2.89 Albumin/Globulin Ratio 1.37 Lipase Urine Color Urine Clarity Urine pH Ur Specific Hope Urine Protein Urine Glucose (UA) Urine Ketones Urine Blood Urine Nitrite Urine Bilirubin Urine Urobilinogen Ur Leukocyte Esterase Urine Microscopic RBC Ur Squamous Epith Cells Acetone, Qual Large SARS CoV-2 RNA Rapid YUNIOR 01/19/23 01/19/23 01/19/23 01:09 01:15 01:19 WBC RBC Hgb Hct MCV MCH MCHC RDW Coeff of Chayo Plt Count Immature Gran % (Auto) Neut % (Auto) Lymph % (Auto) Buchanan % (Auto) Eos % (Auto) Baso % (Auto) Neut # (Auto) Lymph # (Auto) Buchanan # (Auto) Eos # (Auto) Baso # (Auto) Immature Gran # (Auto) VBG pH 7.03 L VBG pCO2 16 L VBG pO2 53 H VBG HCO3 4.2 L VBG O2 Saturation 66.9 Sodium Potassium Chloride Carbon Dioxide Anion Gap BUN Creatinine Estimated GFR (MDRD) BUN/Creatinine Ratio Glucose Calcium Total Bilirubin AST ALT Alkaline Phosphatase Troponin I NT-Pro-B Natriuret Pep Total Protein Albumin Globulin Albumin/Globulin Ratio Lipase 320.0 H Urine Color Yellow Urine Clarity Clear Urine pH 5.0 Ur Specific Hope 1.015 Urine Protein Trace H Urine Glucose (UA) 2+ H Urine Ketones 4+ Urine Blood Trace-intact H Urine Nitrite Negative Urine Bilirubin Negative Urine Urobilinogen 0.2 Ur Leukocyte Esterase Negative Urine Microscopic RBC 0-2 Ur Squamous Epith Cells Not present Acetone, Qual SARS CoV-2 RNA Rapid YUNIOR 01/19/23 01/19/23 01/19/23 03:00 03:16 03:30 WBC RBC Hgb Hct MCV MCH MCHC RDW Coeff of Chayo Plt Count Immature Gran % (Auto) Neut % (Auto) Lymph % (Auto) Buchanan % (Auto) Eos % (Auto) Baso % (Auto) Neut # (Auto) Lymph # (Auto) Buchanan # (Auto) Eos # (Auto) Baso # (Auto) Immature Gran # (Auto) VBG pH 7.15 L VBG pCO2 19 L VBG pO2 86 H VBG HCO3 6.6 L VBG O2 Saturation 92.9 H Sodium 128.1 L Potassium 5.64 H Chloride 95.5 L Carbon Dioxide < 5.0 L* Anion Gap 33.34524 BUN 28.5 H Creatinine 1.23 H Estimated GFR (MDRD) 65.00 BUN/Creatinine Ratio 23.17 Glucose 818.9 H* D Calcium 8.94 Total Bilirubin 0.25 AST 63.3 H D ALT 95.2 H Alkaline Phosphatase 200.4 H D Troponin I NT-Pro-B Natriuret Pep Total Protein 6.42 Albumin 3.54 Globulin 2.88 Albumin/Globulin Ratio 1.22 Lipase Urine Color Urine Clarity Urine pH Ur Specific Hope Urine Protein Urine Glucose (UA) Urine Ketones Urine Blood Urine Nitrite Urine Bilirubin Urine Urobilinogen Ur Leukocyte Esterase Urine Microscopic RBC Ur Squamous Epith Cells Acetone, Qual SARS CoV-2 RNA Rapid YUNIOR Negative 01/19/23 01/19/23 01/19/23 04:56 05:00 Unknown WBC RBC Hgb Hct MCV MCH MCHC RDW Coeff of Chayo Plt Count Immature Gran % (Auto) Neut % (Auto) Lymph % (Auto) Buchanan % (Auto) Eos % (Auto) Baso % (Auto) Neut # (Auto) Lymph # (Auto) Buchanan # (Auto) Eos # (Auto) Baso # (Auto) Immature Gran # (Auto) VBG pH 7.21 L VBG pCO2 27 L VBG pO2 62 H VBG HCO3 10.8 L VBG O2 Saturation 85.4 H Sodium 127.5 L Potassium 5.13 H Chloride 96.4 L Carbon Dioxide 8.4 L* Anion Gap 27.83 BUN 28.7 H Creatinine 1.07 Estimated GFR (MDRD) 76.00 BUN/Creatinine Ratio 26.82 Glucose 679.9 H* D Calcium 8.65 Total Bilirubin AST ALT Alkaline Phosphatase Troponin I NT-Pro-B Natriuret Pep 3050 H Total Protein Albumin Globulin Albumin/Globulin Ratio Lipase Urine Color Urine Clarity Urine pH Ur Specific Hope Urine Protein Urine Glucose (UA) Urine Ketones Urine Blood Urine Nitrite Urine Bilirubin Urine Urobilinogen Ur Leukocyte Esterase Urine Microscopic RBC Ur Squamous Epith Cells Acetone, Qual SARS CoV-2 RNA Rapid Y[facility] Imaging Imaging: EXAM: CHEST, ONE-VIEW FINDINGS: Cardiac and mediastinal contours are normal. Pulmonary vasculature is normal. Lungs are clear. No acute chest wall abnormality. Multilevel healing left rib fractures. IMPRESSION: No acute cardiopulmonary disease Review Statement Review Statement: I have independently reviewed and interpreted the labs/EKGs/imaging that were ordered by the ER provider. I have reviewed all outside records that are available currently in our EMR including imaging/notes/labs from previous visits. Plan Plan: 1. Diabetic Ketoacidosis - improving, continue IV fluids and insulin gtt, serial bmps and venous blood gases, NPO 2. Hyponatremia - in setting of DKA, improving, continue fluids, monitor 3. Hyperkalemia in setting of DKA - Resolved, continue to monitor 4. Type 1 Diabetes - will resume ADA diet when DKA resolves, checking hemoglobin A1C 5. Possible transient MRSA bloodstream infection - per Dr. Guthrie at [facility], appears as blood cultures were contaminated, treated prophylactically, continue previously prescribed bactrim BID until 01/23, recommended repeat blood cultures 7-10 days after completion of antibiotics. 6. Agitation - patient required dose of zyprexa, has pulled out 2 IVs and requesting to leave, patient unable to make these decisions due to disorientation, restraints ordered while need for IV medications. Discussed current medication regimen with Dr. Leigh - Psychiatry, recommended increasing depakote dose to 500 mg and starting on risperdone 0.5 mg BID initially - may increase up to 1 if no noted improvements Due to inability to make decisions s/p TBI and medication mismanagement, discussed with , Alysia, concerns for safety at home. States that his parents and herself are in agreement that he needs to be placed into a facility at this time. Requested we contact [facility] initially and then try elsewhere. DVT Prophylaxis: Ambulation Time Spent: Greater than 80 minutes spent with patient, 50% of the time spent with this patient was devoted to counseling and coordination of care. [facility] minutes spent discussing advance care planning. Smoking Cessation: 3 minutes spent discussing smoking cessation. Disposition: Admit to: Med/surg Inpatient Discussed Plan of Care with Dr. Jax Khan. Medications Medication Orders: Medications Ordered Category Date Time Status Divalproex Sodium [Depakote] Meds 01/19/23 09:00 Active 250 mg PO Q8H Insulin Regular in 0.9 % NaCl [Myxredlin 100 Unit/100 Meds 01/19/23 02:00 Active ml Bag] 100 unit in 100 ml IV TITRATION Olanzapine [Zyprexa] Meds 01/19/23 04:09 Active 10 mg IM ONCE PRN Potassium Chloride-0.45% NaCl [Sodium Chloride 0.45%- Meds 01/19/23 06:00 Active KCl 20 Meq] 1,000 ml IV 250 mls/hr Pregabalin [Lyrica] Meds 01/19/23 09:00 Active 75 mg PO TID Propranolol HCl [Inderal] Meds 01/19/23 09:00 Active 40 mg PO TID Sulfamethoxazole/Trimethoprim [Bactrim Ds 800/160 mg] Meds 01/19/23 09:00 Active 1 tab PO BID Trazodone HCl [Desyrel] Meds 01/19/23 21:00 Active 50 mg PO BEDTIME
[2023-01-19] MEDS: INDERAL PO SCH ×4 (09:42→20:32)
[2023-01-19] MEDS: LYRICA PO SCH ×4 (09:42→20:32)
[2023-01-19] MEDS: BACTRIM DS 800/160 MG PO SCH ×3 (09:43→20:31)
[2023-01-19] MEDS: D5%-1/2NS-KCL 20 MEQ/L IV SOL 1,000 ML IV SCH ×2 (12:13→16:22)
[2023-01-19 13:30] LABS: CALCIUM 8.36 mg/dL (8.4-10.2); CARBON DIOXIDE 21.9 mmol/L (22-30.0); CHLORIDE 105.4 mmol/L (98-107); CREATININE 0.67 mg/dL (0.60-1.10); GLUCOSE 151.4 mg/dL (74-106); POTASSIUM 4.11 mmol/L (3.5-5.1); SODIUM 130.6 mmol/L (134.5-145)
[2023-01-19 13:43] LABS: VBG HCO3 20.9 (22-26); VBG OXYGEN SATURATION 99.6 (60-80); VBG PH 7.45 (7.30-7.40)
[2023-01-19] MEDS ORDERED: DEXTROSE 50%-WATER ABBOJECT IVP STA (16:06)
[2023-01-19] MEDS: DEPAKOTE PO SCH (17:03)
[2023-01-19 17:29] LABS: BLOOD UREA NITROGEN 17.9 mg/dL (9-20); CALCIUM 8.22 mg/dL (8.4-10.2); CARBON DIOXIDE 23.1 mmol/L (22-30.0); CHLORIDE 103.9 mmol/L (98-107); CREATININE 0.67 mg/dL (0.60-1.10); GLUCOSE 77.7 mg/dL (74-106); POTASSIUM 4.41 mmol/L (3.5-5.1); SODIUM 131.6 mmol/L (134.5-145)
[2023-01-19] MEDS: LACTATED RINGERS 1,000 ML IV SCH (18:41)
[2023-01-19] MEDS: DESYREL PO SCH ×2 (20:04→20:31)
[2023-01-19] MEDS: RISPERDAL PO SCH ×2 (20:05→20:32)
[2023-01-20] MEDS: DEPAKOTE PO SCH ×3 (00:06→14:47)
[2023-01-20] MEDS: HUMULIN R SUBCUT PRN ×2 (00:17→06:34)
[2023-01-20] MEDS ORDERED: HALDOL IM ONE ×2 (02:30)
[2023-01-20] MEDS ORDERED: ATIVAN IM ONE (02:30)
[2023-01-20] MEDS ORDERED: ATIVAN ONE (02:39)
[2023-01-20] MEDS ORDERED: HALDOL ONE (02:39)
[2023-01-20 03:05] LABS: BLOOD UREA NITROGEN 15.2 mg/dL (9-20); CALCIUM 8.12 mg/dL (8.4-10.2); CHLORIDE 102.1 mmol/L (98-107); CREATININE 0.69 mg/dL (0.60-1.10); GLUCOSE 172.6 mg/dL (74-106); POTASSIUM 4.23 mmol/L (3.5-5.1); SODIUM 127.4 mmol/L (134.5-145)
[2023-01-20] MEDS: MYXREDLIN 100 UNIT/100 ML BAG 100 UNIT/100 ML PLAST..BAG IV SCH (03:18)
[2023-01-20] MEDS: LACTATED RINGERS 1,000 ML IV SCH ×4 (03:23→19:52)
[2023-01-20 05:24] LABS: BASOPHILS % (AUTO) 0.3 % (0.0-3.0); EOSINOPHILS # (AUTO) 0.1 K/ul (0.0-0.7); EOSINOPHILS % (AUTO) 0.6 % (0.0-7.0); HEMOGLOBIN 8.6 g/dl (14.0-18.0); IMMATURE GRANULOCYTE % (AUTO) 0.4 % (0.0-5.0); LYMPHOCYTES # (AUTO) 2.5 K/uL (0.60-3.4); LYMPHOCYTES % (AUTO) 23.5 (10.0-50.0); MEAN CORPUSCULAR HEMOGLOBIN 28.4 pg (27.0-31.0); MEAN CORPUSCULAR HGB CONC 32.5 (31.8-35.4); MEAN CORPUSCULAR VOLUME 87.5 fl (80.0-94.0); MONOCYTES # (AUTO) 0.7 K/uL (0.4-2.0); MONOCYTES % (AUTO) 6.2 (0-10); NEUTROPHILS # (AUTO) 7.5 K/ul (2.0-6.9); PLATELET COUNT 323 10^3/uL (140-440); RDW COEFFICIENT OF VARIATION 14.6 % (11.6-14.8); RED BLOOD COUNT 3.03 10^6/ul (4.70-6.10); WHITE BLOOD COUNT 10.83 K/ul (4.2-10.2)
[2023-01-20 05:34] LABS: ALANINE AMINOTRANSFERASE 55.8 U/L (0-50); ALBUMIN 2.26 g/dL (3.5-5.0); ALKALINE PHOSPHATASE 132.8 U/L (38-126); ASPARTATE AMINO TRANSFERASE 53.6 U/L (17-59); BLOOD UREA NITROGEN 15.4 mg/dL (9-20); CALCIUM 7.75 mg/dL (8.4-10.2); CARBON DIOXIDE 22.8 mmol/L (22-30.0); CHLORIDE 102.3 mmol/L (98-107); CREATININE 0.69 mg/dL (0.60-1.10); GLUCOSE 236.6 mg/dL (74-106); SODIUM 128.3 mmol/L (134.5-145); TOTAL PROTEIN 4.72 g/dL (6.3-8.2)
[2023-01-20 05:36] LABS: BILIRUBIN,TOTAL < 0.10 mg/dL (0.2-1.3)
[2023-01-20 05:59] LABS: HEMATOCRIT 26.5 % (42.0-52.0)
[2023-01-20] MEDS ORDERED: LEVOPHED 4 MG/250 ML NS 4 MG/250 ML BAG IV ONE (06:10)
[2023-01-20] MEDS: LEVOPHED 4 MG/250 ML NS 4 MG/250 ML BAG IV SCH (06:17)
[2023-01-20 08:46] LABS: IRON 41.4 ug/dL (49-181)
--- NOTE | 2023-01-20 09:51 | CT ---
EXAMINATION: HEAD CT WITHOUT CONTRAST HISTORY: Altered mental status and facial droop. TECHNIQUE: Noncontrast CT of the brain was performed with images acquired from skull base to vertex. 2-D coronal and sagittal reformatted images were obtained from the axial source images. Contrast Dose: None. CT Dose Reduction Techniques Performed: Yes. COMPARISON: None. FINDINGS: No intracranial hemorrhage or significant extra-axial fluid collection. Stable small region of encephalomalacia of the right frontal lobe antral inferiorly. Bravo white differentiation is preserved. No mass effect or midline shift. No hydrocephalus. The orbits have a normal appearance. Mucosal thickening of the ethmoid and maxillary sinuses, again noted. The mastoid air cells are angelina r. IMPRESSION: 1. No acute intracranial findings. 2. Stable small region of encephalomalacia of the right frontal lobe antral inferiorly, potentially secondary to old trauma. 3. Chronic ethmoid and bilateral maxillary sinusitis. All CT scans are performed using dose optimization techniques as appropriate to the performed exam an d include at least one of the following: Automated exposure control, adjustment of the mA and/or kV according t o size, and the use of iterative reconstruction technique.
[2023-01-20] MEDS: HUMULIN R SUBCUT SCH ×4 (10:33→20:11)
[2023-01-20] MEDS: FERROUS SULFATE PO SCH ×2 (10:40→20:36)
[2023-01-20] MEDS: LYRICA PO SCH ×3 (10:40→20:36)
[2023-01-20] MEDS: BACTRIM DS 800/160 MG PO SCH ×2 (10:40→21:00)
[2023-01-20] MEDS: INDERAL PO SCH ×3 (10:40→21:00)
[2023-01-20] MEDS: SODIUM CHLORIDE PO SCH ×3 (10:41→20:36)
[2023-01-20] MEDS: RISPERDAL PO SCH ×2 (10:41→20:36)
--- NOTE | 2023-01-20 12:16 | PCM.PROG ---
Date/Time Seen Date Seen by Provider: 01/20/23 Time Seen by Provider: 08:20 Provider Provider: KYMBERLY TERRAZAS[facility] Chief Complaint Chief Complaint: DKA/LEN Subjective Subjective: At approximately, 2000 last night patient became hypotensive with systolic in 80s. Orders were given to give 500mL bolus of IVF. BP did not improve and add itional 500mL order was given. BP improved following the 1L. Around 0200, patient became agitated. Pulled off restraints, pulled out IV, etc. Patient was placed back in bed with security and ER doc at bedside. ER doc ordered haldol and ativan for patient. Following doses of these medications, around 0600 this am systolic BP had returned to the 80s. Levophed orders were given and started. BP has remained stable on 5 mcg since that time. Patient will respond to verbal stimuli. Remains disoriented and impulsive. Restraints are off currently with close monitoring with nursing staff. No fever or other issues at this time. Objective Appearance: Positive No Apparent Distress, Ill-Appearing and Thin Chest/Lungs: Positive Symmetrical With Equal Breath Sounds, Clear to Auscultation Bilaterally and Good Air Movement all 4 Lung Suraez Heart: Positive RRR, Pulses Normal, No S3 Auscultated and No S4 Auscultated GI/: Positive Soft, Nontender, Bowel Sounds Normal, No Distention and No Organomegaly Musculoskeletal: Positive Not Examined Neurological: Positive Sensation Intact, Motor intact, Reflexes Intact, Disorinted and Other (lethargic due to medication) Vital Signs Vital Signs: Vital Signs: Last 24 Hours 01/19/23 12:59 01/19/23 13:00 01/19/23 13:46 Temperature 97.9 F Temperature Source Axillary Pulse Rate 70 73 Pulse Rate [Apical] Respiratory Rate 15 14 Blood Pressure 101/60 Blood Pressure [Left Arm] 101/60 Blood Pressure Mean 73 Blood Pressure Mean [Left Arm] 73 Blood Pressure Location Left Arm Blood Pressure Position Supine O2 Sat by Pulse Oximetry 98 99 Oxygen Delivery Method Room Air Room Air Telemetry Type Remote Telemetry Telemetry Monitoring Continues Telemetry Heart Rate 70 Telemetry SPO2 98 EKG NH Interval 0.15 EKG QRS Interval 0.09 EKG QT Interval Telemetry Strip Reading SR 01/19/23 14:00 01/19/23 14:16 01/19/23 15:00 Temperature Temperature Source Pulse Rate 74 76 73 Pulse Rate [Apical] Respiratory Rate 16 17 15 Blood Pressure 103/68 Blood Pressure [Left Arm] 103/68 Blood Pressure Mean 79 Blood Pressure Mean [Left Arm] 79 Blood Pressure Location Blood Pressure Position O2 Sat by Pulse Oximetry 98 Oxygen Delivery Method Room Air Room Air Telemetry Type Telemetry Monitoring Telemetry Heart Rate Telemetry SPO2 EKG NH Interval EKG QRS Interval EKG QT Interval Telemetry Strip Reading 01/19/23 16:00 01/19/23 17:00 01/19/23 18:00 Temperature Temperature Source Pulse Rate 71 71 72 Pulse Rate [Apical] Respiratory Rate 14 13 15 Blood Pressure Blood Pressure [Left Arm] 104/63 108/72 Blood Pressure Mean Blood Pressure Mean [Left Arm] 76 84 Blood Pressure Location Blood Pressure Position O2 Sat by Pulse Oximetry Oxygen Delivery Method Room Air Room Air Room Air Telemetry Type Telemetry Monitoring Telemetry Heart Rate Telemetry SPO2 EKG NH Interval EKG QRS Interval EKG QT Interval Telemetry Strip Reading 01/19/23 19:00 01/19/23 19:00 01/19/23 19:30 Temperature Temperature Source Pulse Rate 68 68 Pulse Rate [Apical] Respiratory Rate 16 16 Blood Pressure 84/55 L Blood Pressure [Left Arm] 100/63 Blood Pressure Mean 64 Blood Pressure Mean [Left Arm] 75 Blood Pressure Location Left Arm Blood Pressure Position Sitting O2 Sat by Pulse Oximetry 98 96 Oxygen Delivery Method Room Air Room Air Telemetry Type Bedside Monitor Telemetry Monitoring Continues Telemetry Heart Rate 70 Telemetry SPO2 98 EKG NH Interval 0.15 EKG QRS Interval 0.07 EKG QT Interval 0.40 Telemetry Strip Reading SR no ectopy noted 01/19/23 19:35 01/19/23 20:00 01/19/23 20:00 Temperature Temperature Source Pulse Rate 70 66 Pulse Rate [Apical] 68 Respiratory Rate 14 16 16 Blood Pressure 100/63 Blood Pressure [Left Arm] 80/51 L Blood Pressure Mean 75 Blood Pressure Mean [Left Arm] 60 Blood Pressure Location Left Arm Blood Pressure Position Sitting O2 Sat by Pulse Oximetry 96 96 Oxygen Delivery Method Room Air Room Air Room Air Telemetry Type Telemetry Monitoring Telemetry Heart Rate Telemetry SPO2 EKG NH Interval EKG QRS Interval EKG QT Interval Telemetry Strip Reading 01/19/23 20:05 01/19/23 20:30 01/19/23 20:45 Temperature Temperature Source Pulse Rate 64 66 64 Pulse Rate [Apical] Respiratory Rate 16 16 16 Blood Pressure Blood Pressure [Left Arm] 82/52 L 75/43 L 75/47 L Blood Pressure Mean Blood Pressure Mean [Left Arm] 62 53 56 Blood Pressure Location Blood Pressure Position O2 Sat by Pulse Oximetry 96 96 96 Oxygen Delivery Method Room Air Room Air Room Air Telemetry Type Telemetry Monitoring Telemetry Heart Rate Telemetry SPO2 EKG NH Interval EKG QRS Interval EKG QT Interval Telemetry Strip Reading 01/19/23 20:56 01/19/23 21:10 01/19/23 21:25 Temperature Temperature Source Pulse Rate 66 66 68 Pulse Rate [Apical] Respiratory Rate 16 14 16 Blood Pressure 83/48 L Blood Pressure [Left Arm] 79/47 L 98/62 Blood Pressure Mean 59 Blood Pressure Mean [Left Arm] 57 74 Blood Pressure Location Left Arm Blood Pressure Position Sitting O2 Sat by Pulse Oximetry 96 96 98 Oxygen Delivery Method Room Air Room Air Room Air Telemetry Type Telemetry Monitoring Telemetry Heart Rate Telemetry SPO2 EKG NH Interval EKG QRS Interval EKG QT Interval Telemetry Strip Reading 01/19/23 21:25 01/19/23 21:42 01/19/23 21:42 Temperature Temperature Source Pulse Rate 68 68 68 Pulse Rate [Apical] Respiratory Rate 16 14 14 Blood Pressure 98/62 87/55 L Blood Pressure [Left Arm] 87/55 L Blood Pressure Mean 74 65 Blood Pressure Mean [Left Arm] 65 Blood Pressure Location Left Arm Left Arm Blood Pressure Position Sitting Sitting O2 Sat by Pulse Oximetry 98 95 95 Oxygen Delivery Method Room Air Room Air Room Air Telemetry Type Telemetry Monitoring Telemetry Heart Rate Telemetry SPO2 EKG NH Interval EKG QRS Interval EKG QT Interval Telemetry Strip Reading 01/19/23 22:00 01/19/23 22:00 01/19/23 22:14 Temperature 98.7 F 98.7 F Temperature Source Temporal Artery Scan Temporal Artery Scan Pulse Rate 68 68 70 Pulse Rate [Apical] Respiratory Rate 16 16 16 Blood Pressure 84/49 L Blood Pressure [Left Arm] 84/49 L 91/62 Blood Pressure Mean 60 Blood Pressure Mean [Left Arm] 60 71 Blood Pressure Location Left Arm Blood Pressure Position Sitting O2 Sat by Pulse Oximetry 97 97 97 Oxygen Delivery Method Room Air Room Air Room Air Telemetry Type Telemetry Monitoring Telemetry Heart Rate Telemetry SPO2 EKG NH Interval EKG QRS Interval EKG QT Interval Telemetry Strip Reading 01/19/23 22:14 01/19/23 22:34 01/19/23 22:34 Temperature Temperature Source Pulse Rate 70 72 72 Pulse Rate [Apical] Respiratory Rate 16 16 16 Blood Pressure 91/62 114/75 Blood Pressure [Left Arm] 114/75 Blood Pressure Mean 71 88 Blood Pressure Mean [Left Arm] 88 Blood Pressure Location Left Arm Left Arm Blood Pressure Position Sitting Sitting O2 Sat by Pulse Oximetry 97 98 98 Oxygen Delivery Method Room Air Room Air Room Air Telemetry Type Telemetry Monitoring Telemetry Heart Rate Telemetry SPO2 EKG NH Interval EKG QRS Interval EKG QT Interval Telemetry Strip Reading 01/19/23 22:45 01/19/23 22:45 01/19/23 23:00 Temperature Temperature Source Pulse Rate 74 74 74 Pulse Rate [Apical] Respiratory Rate 16 16 16 Blood Pressure 103/68 Blood Pressure [Left Arm] 103/68 117/64 Blood Pressure Mean 79 Blood Pressure Mean [Left Arm] 79 81 Blood Pressure Location Left Arm Blood Pressure Position Sitting O2 Sat by Pulse Oximetry 97 97 98 Oxygen Delivery Method Room Air Room Air Room Air Telemetry Type Telemetry Monitoring Telemetry Heart Rate Telemetry SPO2 EKG NH Interval EKG QRS Interval EKG QT Interval Telemetry Strip Reading 01/19/23 23:00 01/19/23 23:45 01/19/23 23:45 Temperature Temperature Source Pulse Rate 74 74 74 Pulse Rate [Apical] Respiratory Rate 16 16 16 Blood Pressure 117/64 97/60 Blood Pressure [Left Arm] 97/60 Blood Pressure Mean 81 72 Blood Pressure Mean [Left Arm] 72 Blood Pressure Location Left Arm Left Arm Blood Pressure Position Sitting Sitting O2 Sat by Pulse Oximetry 97 97 97 Oxygen Delivery Method Room Air Room Air Room Air Telemetry Type Telemetry Monitoring Telemetry Heart Rate Telemetry SPO2 EKG NH Interval EKG QRS Interval EKG QT Interval Telemetry Strip Reading 01/20/23 00:00 01/20/23 00:00 01/20/23 00:30 Temperature Temperature Source Pulse Rate 74 74 74 Pulse Rate [Apical] Respiratory Rate 16 16 14 Blood Pressure 95/64 Blood Pressure [Left Arm] 95/64 101/60 Blood Pressure Mean 74 Blood Pressure Mean [Left Arm] 74 73 Blood Pressure Location Left Arm Blood Pressure Position Sitting O2 Sat by Pulse Oximetry 98 98 97 Oxygen Delivery Method Room Air Room Air Room Air Telemetry Type Telemetry Monitoring Telemetry Heart Rate Telemetry SPO2 EKG NH Interval EKG QRS Interval EKG QT Interval Telemetry Strip Reading 01/20/23 00:30 01/20/23 01:00 01/20/23 01:00 Temperature Temperature Source Pulse Rate 74 74 74 Pulse Rate [Apical] Respiratory Rate 16 14 14 Blood Pressure 101/60 102/64 Blood Pressure [Left Arm] 102/64 Blood Pressure Mean 73 76 Blood Pressure Mean [Left Arm] 76 Blood Pressure Location Left Arm Left Arm Blood Pressure Position Sitting Sitting O2 Sat by Pulse Oximetry 97 98 98 Oxygen Delivery Method Room Air Room Air Room Air Telemetry Type Telemetry Monitoring Telemetry Heart Rate Telemetry SPO2 EKG NH Interval EKG QRS Interval EKG QT Interval Telemetry Strip Reading 01/20/23 01:00 01/20/23 01:30 01/20/23 01:30 Temperature Temperature Source Pulse Rate 76 76 Pulse Rate [Apical] Respiratory Rate 16 16 Blood Pressure 95/57 L Blood Pressure [Left Arm] 95/57 L Blood Pressure Mean 69 Blood Pressure Mean [Left Arm] 69 Blood Pressure Location Left Arm Blood Pressure Position Sitting O2 Sat by Pulse Oximetry 96 96 Oxygen Delivery Method Room Air Room Air Telemetry Type Bedside Monitor Telemetry Monitoring Telemetry Heart Rate 74 Telemetry SPO2 96 EKG NH Interval 0.13 EKG QRS Interval 0.07 EKG QT Interval 0.34 Telemetry Strip Reading SR no ectopy noted 01/20/23 02:00 01/20/23 02:00 01/20/23 02:33 Temperature Temperature Source Pulse Rate 78 78 80 Pulse Rate [Apical] Respiratory Rate 16 16 22 H Blood Pressure Blood Pressure [Left Arm] 92/58 L Blood Pressure Mean Blood Pressure Mean [Left Arm] 69 Blood Pressure Location Blood Pressure Position O2 Sat by Pulse Oximetry 96 Oxygen Delivery Method Room Air Room Air Telemetry Type Telemetry Monitoring Telemetry Heart Rate Telemetry SPO2 EKG NH Interval EKG QRS Interval EKG QT Interval Telemetry Strip Reading 01/20/23 02:33 01/20/23 03:00 01/20/23 03:00 Temperature Temperature Source Pulse Rate 80 78 78 Pulse Rate [Apical] Respiratory Rate 22 H 16 16 Blood Pressure 92/58 L 110/65 Blood Pressure [Left Arm] 110/65 Blood Pressure Mean 69 80 Blood Pressure Mean [Left Arm] 80 Blood Pressure Location Left Arm Left Arm Blood Pressure Position Sitting Sitting O2 Sat by Pulse Oximetry 96 96 96 Oxygen Delivery Method Room Air Room Air Room Air Telemetry Type Telemetry Monitoring Telemetry Heart Rate Telemetry SPO2 EKG NH Interval EKG QRS Interval EKG QT Interval Telemetry Strip Reading 01/20/23 03:30 01/20/23 03:30 01/20/23 04:00 Temperature Temperature Source Pulse Rate 82 82 78 Pulse Rate [Apical] Respiratory Rate 14 14 18 Blood Pressure 93/58 L Blood Pressure [Left Arm] 93/58 L 90/51 L Blood Pressure Mean 69 Blood Pressure Mean [Left Arm] 69 64 Blood Pressure Location Left Arm Blood Pressure Position Sitting O2 Sat by Pulse Oximetry 96 96 97 Oxygen Delivery Method Room Air Room Air Room Air Telemetry Type Telemetry Monitoring Telemetry Heart Rate Telemetry SPO2 EKG NH Interval EKG QRS Interval EKG QT Interval Telemetry Strip Reading 01/20/23 04:00 01/20/23 04:30 01/20/23 04:30 Temperature Temperature Source Pulse Rate 78 74 74 Pulse Rate [Apical] Respiratory Rate 18 18 18 Blood Pressure 90/51 L 81/43 L Blood Pressure [Left Arm] 81/43 L Blood Pressure Mean 64 55 Blood Pressure Mean [Left Arm] 55 Blood Pressure Location Left Arm Left Arm Blood Pressure Position Supine Supine O2 Sat by Pulse Oximetry 97 96 96 Oxygen Delivery Method Room Air Room Air Room Air Telemetry Type Telemetry Monitoring Telemetry Heart Rate Telemetry SPO2 EKG NH Interval EKG QRS Interval EKG QT Interval Telemetry Strip Reading 01/20/23 04:32 01/20/23 04:32 01/20/23 04:50 Temperature Temperature Source Pulse Rate 76 76 76 Pulse Rate [Apical] Respiratory Rate 18 18 20 Blood Pressure 75/36 L Blood Pressure [Left Arm] 75/36 L 87/44 L Blood Pressure Mean 49 Blood Pressure Mean [Left Arm] 49 58 Blood Pressure Location Left Arm Blood Pressure Position Supine O2 Sat by Pulse Oximetry 95 95 95 Oxygen Delivery Method Room Air Room Air Room Air Telemetry Type Telemetry Monitoring Telemetry Heart Rate Telemetry SPO2 EKG NH Interval EKG QRS Interval EKG QT Interval Telemetry Strip Reading 01/20/23 04:50 01/20/23 05:00 01/20/23 05:00 Temperature 98.2 F 98.2 F Temperature Source Temporal Artery Scan Temporal Artery Scan Pulse Rate 76 78 78 Pulse Rate [Apical] Respiratory Rate 20 20 20 Blood Pressure 87/44 L 91/47 L Blood Pressure [Left Arm] 91/47 L Blood Pressure Mean 58 61 Blood Pressure Mean [Left Arm] 61 Blood Pressure Location Left Arm Left Arm Blood Pressure Position Supine Supine O2 Sat by Pulse Oximetry 95 96 96 Oxygen Delivery Method Room Air Room Air Room Air Telemetry Type Telemetry Monitoring Telemetry Heart Rate Telemetry SPO2 EKG NH Interval EKG QRS Interval EKG QT Interval Telemetry Strip Reading 01/20/23 05:32 01/20/23 05:32 01/20/23 06:00 Temperature Temperature Source Pulse Rate 76 76 80 Pulse Rate [Apical] Respiratory Rate 18 18 18 Blood Pressure 80/41 L Blood Pressure [Left Arm] 80/41 L 92/45 L Blood Pressure Mean 54 Blood Pressure Mean [Left Arm] 54 60 Blood Pressure Location Left Arm Blood Pressure Position Supine O2 Sat by Pulse Oximetry 96 96 96 Oxygen Delivery Method Room Air Room Air Room Air Telemetry Type Telemetry Monitoring Telemetry Heart Rate Telemetry SPO2 EKG NH Interval EKG QRS Interval EKG QT Interval Telemetry Strip Reading 01/20/23 06:00 01/20/23 06:30 01/20/23 06:30 Temperature Temperature Source Pulse Rate 80 78 78 Pulse Rate [Apical] Respiratory Rate 18 20 20 Blood Pressure 92/45 L 135/61 Blood Pressure [Left Arm] 135/61 Blood Pressure Mean 60 85 Blood Pressure Mean [Left Arm] 85 Blood Pressure Location Left Arm Left Arm Blood Pressure Position Supine Supine O2 Sat by Pulse Oximetry 96 96 96 Oxygen Delivery Method Room Air Room Air Room Air Telemetry Type Telemetry Monitoring Telemetry Heart Rate Telemetry SPO2 EKG NH Interval EKG QRS Interval EKG QT Interval Telemetry Strip Reading 01/20/23 06:35 01/20/23 06:35 01/20/23 07:00 Temperature Temperature Source Pulse Rate 80 80 77 Pulse Rate [Apical] Respiratory Rate 20 20 19 Blood Pressure 119/81 Blood Pressure [Left Arm] 119/81 129/72 Blood Pressure Mean 93 Blood Pressure Mean [Left Arm] 93 91 Blood Pressure Location Left Arm Blood Pressure Position Supine O2 Sat by Pulse Oximetry 96 96 Oxygen Delivery Method Room Air Room Air Room Air Telemetry Type Telemetry Monitoring Telemetry Heart Rate Telemetry SPO2 EKG NH Interval EKG QRS Interval EKG QT Interval Telemetry Strip Reading 01/20/23 07:00 01/20/23 07:41 01/20/23 08:00 Temperature Temperature Source Pulse Rate 77 Pulse Rate [Apical] 80 Respiratory Rate 19 20 Blood Pressure 129/72 Blood Pressure [Left Arm] Blood Pressure Mean 91 Blood Pressure Mean [Left Arm] Blood Pressure Location Left Arm Blood Pressure Position Supine O2 Sat by Pulse Oximetry 96 Oxygen Delivery Method Room Air Room Air Telemetry Type Remote Telemetry Telemetry Monitoring Continues Telemetry Heart Rate 77 Telemetry SPO2 EKG NH Interval 0.12 EKG QRS Interval 0.04 L EKG QT Interval Telemetry Strip Reading SR 01/20/23 11:51 Temperature Temperature Source Pulse Rate 74 Pulse Rate [Apical] Respiratory Rate 20 Blood Pressure 98/64 Blood Pressure [Left Arm] Blood Pressure Mean 75 Blood Pressure Mean [Left Arm] Blood Pressure Location Left Arm Blood Pressure Position Supine O2 Sat by Pulse Oximetry 96 Oxygen Delivery Method Room Air Telemetry Type Telemetry Monitoring Telemetry Heart Rate Telemetry SPO2 EKG NH Interval EKG QRS Interval EKG QT Interval Telemetry Strip Reading Lab Results Lab Results: Lab Results: Last 24 Hours 01/20/23 01/20/23 01/20/23 Unknown 04:56 02:35 WBC 10.83 H RBC 3.03 L Hgb 8.6 L Hct 26.5 L D MCV 87.5 D MCH 28.4 MCHC 32.5 RDW Coeff of Chayo 14.6 Plt Count 323 Immature Gran % (Auto) 0.4 Neut % (Auto) 69.0 Lymph % (Auto) 23.5 [place] % (Auto) 6.2 Eos % (Auto) 0.6 Baso % (Auto) 0.3 Neut # (Auto) 7.5 H Lymph # (Auto) 2.5 [place] # (Auto) 0.7 Eos # (Auto) 0.1 Baso # (Auto) 0.0 Immature Gran # (Auto) 0.0 VBG pH VBG pCO2 VBG pO2 VBG HCO3 VBG O2 Saturation Sodium 128.3 L 127.4 L Potassium 4.60 4.23 Chloride 102.3 102.1 Carbon Dioxide 22.8 22.0 Anion Gap 7.80 7.53 BUN 15.4 15.2 Creatinine 0.69 0.69 Estimated GFR (MDRD) 126.00 126.00 BUN/Creatinine Ratio 22.31 22.02 Glucose 236.6 H D 172.6 H D Hemoglobin A1c Calcium 7.75 L 8.12 L Iron 41.4 L TIBC 231 L % Saturation 18 Ferritin 112.00 Total Bilirubin < 0.10 L AST 53.6 ALT 55.8 H D Alkaline Phosphatase 132.8 H D NT-Pro-B Natriuret Pep 1590 H Total Protein 4.72 L Albumin 2.26 L Globulin 2.46 Albumin/Globulin Ratio 0.91 Blood Type A NEGATIVE 01/19/23 01/19/23 01/19/23 17:00 13:15 13:05 WBC RBC Hgb Hct MCV MCH MCHC RDW Coeff of Chayo Plt Count Immature Gran % (Auto) Neut % (Auto) Lymph % (Auto) [place] % (Auto) Eos % (Auto) Baso % (Auto) Neut # (Auto) Lymph # (Auto) [place] # (Auto) Eos # (Auto) Baso # (Auto) Immature Gran # (Auto) VBG pH 7.45 H VBG pCO2 30 L VBG pO2 177 H VBG HCO3 20.9 L VBG O2 Saturation 99.6 H Sodium 131.6 L 130.6 L Potassium 4.41 4.11 Chloride 103.9 105.4 Carbon Dioxide 23.1 21.9 L Anion Gap 9.01 7.41 BUN 17.9 21.0 H Creatinine 0.67 0.67 Estimated GFR (MDRD) 130.00 130.00 BUN/Creatinine Ratio 26.71 31.34 Glucose 77.7 D 151.4 H D Hemoglobin A1c 10.77 H Calcium 8.22 L 8.36 L Iron TIBC % Saturation Ferritin Total Bilirubin AST ALT Alkaline Phosphatase NT-Pro-B Natriuret Pep Total Protein Albumin Globulin Albumin/Globulin Ratio Blood Type Additional Comments Additional Comments: I have independently reviewed and interpreted the labs/EKGs/imaging ordered during this hospital stay. I have reviewed outside records that are available in our EMR that pertain to medical stay including imaging/notes/labs from previous visits. Active Medications Active Medications: Medications Generic Name Dose Route Start Last Admin Trade Name Freq PRN Reason Stop Dose Admin Divalproex Sodium 500 mg 01/19/23 15:15 01/20/23 08:11 Divalproex Sodium 250 Mg Tablet. PO 500 mg Q8H BRANDON Administration Ferrous Sulfate 324 mg 01/20/23 09:25 01/20/23 10:40 Ferrous Sulfate 324 Mg Tablet. PO Not Given BID BRANDON Lactated Ringer's 1,000 mls @ 150 mls/hr 01/19/23 18:30 01/20/23 06:41 Lactated Ringers IV 150 mls/hr .Q6H40M BRANDON Administration NOREPINEPHRINE BIT/0.9 % NACL 4 mg in 250 mls @ 18.75 mls/hr 01/20/23 06:00 01/20/23 10:09 Levophed 4 Mg/250 Ml Ns IV 4 mcg/min TITRATION BRANDON 15 mls/hr Titration Protocol 5 MCG/MIN Insulin Human Regular 0 unit 01/20/23 09:45 01/20/23 10:33 Insulin Regular, Human 100 Unit/Ml (3ml) Vial SUBCUT Not Given ACHS2 BRANDON Protocol Olanzapine 10 mg 01/19/23 04:09 01/19/23 09:31 Olanzapine 10 Mg Vial IM 10 mg ONCE PRN Administration Agitation Olanzapine 10 mg 01/19/23 16:35 Olanzapine 10 Mg Vial IM Q6H PRN Agitation Pregabalin 75 mg 01/19/23 09:00 01/20/23 10:40 Pregabalin 75 Mg Capsule PO Not Given TID BRANDON Propranolol HCl 40 mg 01/19/23 09:00 01/20/23 10:40 Propranolol Hcl 20 Mg Tablet PO Not Given TID BRANDON Risperidone 0.5 mg 01/19/23 21:00 01/20/23 10:41 Risperidone 0.25 Mg Tablet PO Not Given BID BRANDON Sodium Chloride 1 gm 01/20/23 09:00 01/20/23 10:41 Sodium Chloride 1 Gm Tablet PO Not Given TID BRANDON Trazodone HCl 50 mg 01/19/23 21:00 01/19/23 20:31 Trazodone Hcl 50 Mg Tablet PO Not Given BEDTIME BRANDON Trimethoprim/Sulfamethoxazole 1 tab 01/19/23 09:00 01/20/23 10:40 Sulfamethoxazole/Trimethoprim 800/160 Mg Tablet PO 01/23/23 22:00 Not Given BID BRANDON Plan Plan: 1. Hypotension - in setting of psychiatric medications, received 1+L of LR last night with minimal relief, started on levophed this AM due to continued hypo tension - goal map 60-65 - wean off as tolerated 2. Diabetic Ketoacidosis - Resolved, see #5 for diabetic regimen 3. Hyponatremia - improving, dropped yesterday afternoon, LR@100mL/hr, telemetry 4. Hyperkalemia in setting of DKA - Resolved, continue to monitor 5. Type 1 Diabetes - ADA diet, accuchecks ACHS, lantus QAM, A1C 10 6. Possible transient MRSA bloodstream infection - per Dr. Guthrie at [facility], appears as blood cultures were contaminated, treated prophylactically, continue previously prescribed bactrim BID until 01/23, recommended repeat blood cultures 7-10 days after completion of antibiotics. 7. Agitation - patient required dose of zyprexa, has pulled out 2 IVs and requesting to leave, patient unable to make these decisions due to disorientation, restraints ordered while need for IV medications. Discussed current medication regimen with Dr. Leigh - Psychiatry, recommended increasing depakote dose to 500 mg and starting on risperdone 0.5 mg BID initially - may increase up to 1 if no noted improvements. - Unable to given PO medications today due to dosing of haldol and ativan around 0200 by ER provider, plan to restart PO meds when patient is more alert Due to inability to make decisions s/p TBI and medication mismanagement, discussed with , Alysia, concerns for safety at home. States that his parents and herself are in agreement that he needs to be placed into a facility at this time. Requested we contact [facility] initially and then try elsewhere. [facility] does not take the patient's insurance. Social work has sent referrals to other facilities and awaiting calls back for placement. DVT Prophylaxis: Ambulation Review Statement Review Statement: I have personally discussed and reviewed the patient's visit/currently labs/imaging/decision making with Dr. Khan, my supervising attending. Greater that 50 minutes spent with patient, 50% of the time spent with this patient was devoted to counseling and coordination of care.
[2023-01-20] MEDS ORDERED: ZYPREXA IM PRN (15:50)
[2023-01-20] MEDS: DESYREL PO SCH (20:36)
[2023-01-21] MEDS: DEPAKOTE PO SCH ×4 (00:19→22:20)
[2023-01-21] MEDS: LACTATED RINGERS 1,000 ML IV SCH ×3 (02:24→16:13)
[2023-01-21 05:40] LABS: BASOPHILS % (AUTO) 0.3 % (0.0-3.0); EOSINOPHILS # (AUTO) 0.1 K/ul (0.0-0.7); EOSINOPHILS % (AUTO) 0.8 % (0.0-7.0); HEMATOCRIT 27.4 % (42.0-52.0); HEMOGLOBIN 8.9 g/dl (14.0-18.0); IMMATURE GRANULOCYTE % (AUTO) 0.1 % (0.0-5.0); LYMPHOCYTES # (AUTO) 2.8 K/uL (0.60-3.4); LYMPHOCYTES % (AUTO) 37.5 (10.0-50.0); MEAN CORPUSCULAR HEMOGLOBIN 28.3 pg (27.0-31.0); MEAN CORPUSCULAR HGB CONC 32.5 (31.8-35.4); MONOCYTES # (AUTO) 0.5 K/uL (0.4-2.0); MONOCYTES % (AUTO) 7.3 (0-10); PLATELET COUNT 341 10^3/uL (140-440); RDW COEFFICIENT OF VARIATION 14.9 % (11.6-14.8); RED BLOOD COUNT 3.15 10^6/ul (4.70-6.10); WHITE BLOOD COUNT 7.42 K/ul (4.2-10.2)
[2023-01-21 05:50] LABS: ALANINE AMINOTRANSFERASE 60.5 U/L (0-50); ALBUMIN 2.44 g/dL (3.5-5.0); ALKALINE PHOSPHATASE 138.9 U/L (38-126); ASPARTATE AMINO TRANSFERASE 38.5 U/L (17-59); BILIRUBIN,TOTAL 0.27 mg/dL (0.2-1.3); BLOOD UREA NITROGEN 12.8 mg/dL (9-20); CALCIUM 7.76 mg/dL (8.4-10.2); CARBON DIOXIDE 26.9 mmol/L (22-30.0); CHLORIDE 96.3 mmol/L (98-107); CREATININE 0.66 mg/dL (0.60-1.10); POTASSIUM 4.44 mmol/L (3.5-5.1); SODIUM 127.2 mmol/L (134.5-145); TOTAL PROTEIN 4.95 g/dL (6.3-8.2)
[2023-01-21] MEDS: HUMULIN R SUBCUT SCH ×4 (06:08→20:04)
[2023-01-21] MEDS: LEVOPHED 4 MG/250 ML NS 4 MG/250 ML BAG IV SCH (07:57)
[2023-01-21] MEDS: INDERAL PO SCH ×2 (08:23→14:52)
[2023-01-21] MEDS: RISPERDAL PO SCH ×2 (08:31→20:01)
[2023-01-21] MEDS: BACTRIM DS 800/160 MG PO SCH ×2 (08:31→20:01)
[2023-01-21] MEDS: FERROUS SULFATE PO SCH ×2 (08:31→20:01)
[2023-01-21] MEDS: LYRICA PO SCH ×3 (08:31→20:01)
[2023-01-21] MEDS: SODIUM CHLORIDE PO SCH ×3 (08:32→20:01)
[2023-01-21] MEDS: LANTUS SUBCUT SCH (08:51)
--- NOTE | 2023-01-21 10:47 | PCM.PROG ---
Date/Time Seen Date Seen by Provider: 01/21/23 Time Seen by Provider: 08:45 Provider Provider: KYMBERLY TERRAZAS, [facility] Chief Complaint Chief Complaint: DKA/LEN Subjective Subjective: No events overnight. Patient weaned off levophed yesterday. More awake and cooperative today. Sitting up in bed eating breakfast with nurse at bedside. Did not require any medication for agitation and has taken his morning medications without difficulty. Patient is able to tell me his name, that it is january or february, year 2021 or 2022, president is either Fred or Natali, and he is at [facility]. States that the reason he was brought here is that his A1C bottomed out. Has had multiple incontinence episodes throughout the night as well. Objective Appearance: Positive No Apparent Distress, Ill-Appearing and Thin Chest/Lungs: Positive Symmetrical With Equal Breath Sounds, Clear to Auscultation Bilaterally and Good Air Movement all 4 Lung Suarez Heart: Positive RRR and Pulses Normal GI/: Positive Soft, Nontender, Bowel Sounds Normal, No Distention and No Organomegaly Musculoskeletal: Positive Not Examined Neurological: Positive Sensation Intact, Motor intact, Reflexes Intact, Alert, Disorinted and Muscle Strength 5/5 in Upper and Lower Extremities Bilaterally Vital Signs Vital Signs: Vital Signs: Last 24 Hours 01/20/23 11:51 01/20/23 13:00 01/20/23 14:00 Temperature 97.8 F Temperature Source Tympanic Pulse Rate 74 87 Respiratory Rate 20 17 Blood Pressure 98/64 143/85 H Blood Pressure Mean 75 104 Blood Pressure Location Left Arm Right Arm Blood Pressure Position Supine Sitting O2 Sat by Pulse Oximetry 96 100 Oxygen Delivery Method Room Air Room Air Telemetry Type Remote Telemetry Telemetry Monitoring Continues Telemetry Heart Rate 77 EKG NE Interval 0.1 L EKG QRS Interval 0.05 L Telemetry Strip Reading SR 01/20/23 19:00 01/20/23 20:00 01/20/23 22:00 Temperature 97.9 F Temperature Source Temporal Artery Scan Pulse Rate 92 Respiratory Rate 18 17 Blood Pressure 104/55 L Blood Pressure Mean 71 Blood Pressure Location Left Arm Blood Pressure Position Supine O2 Sat by Pulse Oximetry 92 L Oxygen Delivery Method Room Air Room Air Telemetry Type Bedside Monitor Telemetry Monitoring Continues Telemetry Heart Rate 115 H EKG NE Interval 0.17 EKG QRS Interval 0.[address] 01/21/23 01:00 01/21/23 06:00 Temperature 97.4 F L Temperature Source Temporal Artery Scan Pulse Rate 101 H Respiratory Rate 15 Blood Pressure 124/77 Blood Pressure Mean 92 Blood Pressure Location Left Arm Blood Pressure Position Sitting O2 Sat by Pulse Oximetry 96 Oxygen Delivery Method Room Air Telemetry Type Bedside Monitor Telemetry Monitoring Continues Telemetry Heart Rate 102 H EKG NE Interval 0.14 EKG QRS Interval 0.[address] Lab Results Lab Results: Lab Results: Last 24 Hours 01/21/23 05:22 WBC 7.42 RBC 3.15 L Hgb 8.9 L Hct 27.4 L MCV 87.0 MCH 28.3 MCHC 32.5 RDW Coeff of Chayo 14.9 H Plt Count 341 Immature Gran % (Auto) 0.1 Neut % (Auto) 54.0 Lymph % (Auto) 37.5 [place] % (Auto) 7.3 Eos % (Auto) 0.8 Baso % (Auto) 0.3 Neut # (Auto) 4.0 Lymph # (Auto) 2.8 [place] # (Auto) 0.5 Eos # (Auto) 0.1 Baso # (Auto) 0.0 Immature Gran # (Auto) 0.0 Sodium 127.2 L Potassium 4.44 Chloride 96.3 L Carbon Dioxide 26.9 Anion Gap 8.44 BUN 12.8 Creatinine 0.66 Estimated GFR (MDRD) 132.00 BUN/Creatinine Ratio 19.39 Glucose 350.0 H Calcium 7.76 L Total Bilirubin 0.27 AST 38.5 ALT 60.5 H Alkaline Phosphatase 138.9 H Total Protein 4.95 L Albumin 2.44 L Globulin 2.51 Albumin/Globulin Ratio 0.97 Additional Comments Additional Comments: I have independently reviewed and interpreted the labs/EKGs/imaging ordered during this hospital stay. I have reviewed outside records that are available in our EMR that pertain to medical stay including imaging/notes/labs from previous visits. Active Medications Active Medications: Medications Generic Name Dose Route Start Last Admin Trade Name Freq PRN Reason Stop Dose Admin Divalproex Sodium 500 mg 01/19/23 15:15 01/21/23 08:32 Divalproex Sodium 250 Mg Tablet.Dr SOARES 500 mg Q8H BRANDON Administration Ferrous Sulfate 324 mg 01/20/23 09:25 01/21/23 08:31 Ferrous Sulfate 324 Mg Tablet. PO 324 mg BID BRANDON Administration Lactated Ringer's 1,000 mls @ 150 mls/hr 01/19/23 18:30 01/21/23 08:56 Lactated Ringers IV 150 mls/hr .Q6H40M BRANDON Administration Insulin Glargine 16 unit 01/21/23 09:00 01/21/23 08:51 Insulin Glargine,Hum.Rec.Anlog 100 Units/Ml SUBCUT 16 unit DAILY BRANDON Administration Insulin Human Regular 0 unit 01/20/23 09:45 01/21/23 06:08 Insulin Regular, Human 100 Unit/Ml (3ml) Vial SUBCUT 10 unit ACHS2 BRANDON Administration Protocol Olanzapine 5 mg 01/20/23 15:50 Olanzapine 10 Mg Vial IM Q6H PRN Agitation Pregabalin 75 mg 01/19/23 09:00 01/21/23 08:31 Pregabalin 75 Mg Capsule PO 75 mg TID BRANDON Administration Propranolol HCl 40 mg 01/19/23 09:00 01/21/23 08:23 Propranolol Hcl 20 Mg Tablet PO Not Given TID BRANDON Risperidone 0.5 mg 01/19/23 21:00 01/21/23 08:31 Risperidone 0.25 Mg Tablet PO 0.5 mg BID BRANDON Administration Sodium Chloride 1 gm 01/20/23 09:00 01/21/23 08:32 Sodium Chloride 1 Gm Tablet PO 1 gm TID BRANDON Administration Trazodone HCl 50 mg 01/19/23 21:00 01/20/23 20:36 Trazodone Hcl 50 Mg Tablet PO 50 mg BEDTIME BRANDON Administration Trimethoprim/Sulfamethoxazole 1 tab 01/19/23 09:00 01/21/23 08:31 Sulfamethoxazole/Trimethoprim 800/160 Mg Tablet PO 01/23/23 22:00 1 tab BID BRANDON Administration Plan Plan: 1. Hypotension in setting of psychiatric medications - Resolved, levophed stopped yesterday 2. Diabetic Ketoacidosis - Resolved, see #5 for diabetic regimen 3. Hyponatremia - improving, LR@100mL/hr, salt tabs qid, telemetry 4. Hyperkalemia in setting of DKA - Resolved, continue to monitor 5. Type 1 Diabetes - ADA diet, accuchecks ACHS, lantus QAM, A1C 10 6. Possible transient MRSA bloodstream infection - per Dr. Guthrie at [facility], appears as blood cultures were contaminated, treated prophylactically, continue previously prescribed bactrim BID until 01/23 - has not been taking will restart 7 day course, recommended repeat blood cultures 7-10 days after completion of antibiotics. 7. Agitation - Improving, no longer requiring IM medications or restraints. Discussed current medication regimen with Dr. Leigh - Psychiatry, recommended increasing depakote dose to 500 mg and starting on risperdone 0.5 mg BID initially - may increase up to 1 if no noted improvements. - Restarted PO medications today due to patient being more alert Due to inability to make decisions s/p TBI and medication mismanagement, discussed with , Alysia, concerns for safety at home. States that his parents and herself are in agreement that he needs to be placed into a facility at this time. Requested we contact [facility] initially and then try elsewhere. [facility] does not take the patient's insurance. Social work has sent referrals to other facilities and awaiting calls back for placement. Some TBI facilities are denying due to injury not being acute. Other referrals have been sent and are awaiting approval or denial. DVT Prophylaxis: Ambulation Review Statement Review Statement: I have personally discussed and reviewed the patient's visit/currently labs/imaging/decision making with Dr. Khan, my supervising attending. Greater that 50 minutes spent with patient, 50% of the time spent with this patient was devoted to counseling and coordination of care.
[2023-01-21] MEDS: DESYREL PO SCH (20:01)
[2023-01-22 05:40] VITALS: TEMP 98.8
[2023-01-22] MEDS: HUMULIN R SUBCUT SCH (06:12)
[2023-01-22 08:50] LABS: BASOPHILS % (AUTO) 0.2 % (0.0-3.0); EOSINOPHILS % (AUTO) 0.4 % (0.0-7.0); HEMATOCRIT 25.2 % (42.0-52.0); HEMOGLOBIN 8.1 g/dl (14.0-18.0); IMMATURE GRANULOCYTE % (AUTO) 0.2 % (0.0-5.0); LYMPHOCYTES # (AUTO) 0.5 K/uL (0.60-3.4); LYMPHOCYTES % (AUTO) 8.2 (10.0-50.0); MEAN CORPUSCULAR HGB CONC 32.1 (31.8-35.4); MEAN CORPUSCULAR VOLUME 87.2 fl (80.0-94.0); MONOCYTES # (AUTO) 0.3 K/uL (0.4-2.0); MONOCYTES % (AUTO) 5.6 (0-10); NEUTROPHILS # (AUTO) 4.8 K/ul (2.0-6.9); NEUTROPHILS % (AUTO) 85.4 % (42.2-75.2); PLATELET COUNT 234 10^3/uL (140-440); RDW COEFFICIENT OF VARIATION 15.1 % (11.6-14.8); RED BLOOD COUNT 2.89 10^6/ul (4.70-6.10); WHITE BLOOD COUNT 5.58 K/ul (4.2-10.2)
[2023-01-22 08:53] LABS: ALANINE AMINOTRANSFERASE 57.2 U/L (0-50); ALBUMIN 2.64 g/dL (3.5-5.0); ALKALINE PHOSPHATASE 121.8 U/L (38-126); ASPARTATE AMINO TRANSFERASE 52.9 U/L (17-59); BILIRUBIN,TOTAL 0.14 mg/dL (0.2-1.3); BLOOD UREA NITROGEN 8.7 mg/dL (9-20); CALCIUM 7.99 mg/dL (8.4-10.2); CARBON DIOXIDE 30.9 mmol/L (22-30.0); CHLORIDE 93.3 mmol/L (98-107); CREATININE 0.79 mg/dL (0.60-1.10); GLUCOSE 156.2 mg/dL (74-106); POTASSIUM 4.01 mmol/L (3.5-5.1); TOTAL PROTEIN 5.21 g/dL (6.3-8.2)
[2023-01-22] MEDS: SODIUM CHLORIDE PO SCH ×2 (09:04→14:44)
[2023-01-22] MEDS: RISPERDAL PO SCH (09:04)
[2023-01-22] MEDS: LYRICA PO SCH ×2 (09:04→14:45)
[2023-01-22] MEDS: BACTRIM DS 800/160 MG PO SCH (09:04)
[2023-01-22] MEDS: LANTUS SUBCUT SCH (09:05)
[2023-01-22] MEDS: FERROUS SULFATE PO SCH (09:05)
[2023-01-22] MEDS: DEPAKOTE PO SCH ×2 (09:17→14:44)
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
[2023-01-22 14:33] VITALS: BP 110/68; PULSE 127; RESP 16
== END 2023-01-22 15:45 | DRG 638 ==
LOC: ED 00:32 → SCU 04:32
PROVIDERS: ADMIT Physician Assistant; ATTEND Nurse Practitioner Family
DX: Z20.822 Contact with and (suspected) exposure to COVID-19; R06.82 Tachypnea, not elsewhere classified; E87.6 Hypokalemia; E87.1 Hypo-osmolality and hyponatremia; F17.210 Nicotine dependence, cigarettes, uncomplicated; N17.9 Acute kidney failure, unspecified; E10.10 Type 1 diabetes mellitus with ketoacidosis without coma; Z87.820 Personal history of traumatic brain injury; R00.0 Tachycardia, unspecified; Z09 Encounter for follow-up examination after completed treatment for conditions other than malignant neoplasm; I95.2 Hypotension due to drugs; T43.8X5A Adverse effect of other psychotropic drugs, initial encounter; Z93.0 Tracheostomy status